=== PATIENT | female | born 1975 | race Two or more races ===

== ENCOUNTER 2023-01-25 09:18 | Outpatient (OUT) | payer MEDICARE, OTHER, SELFPAY ==
--- NOTE | 2023-01-25 09:50 | XR_ITS ---
The [address] [address] Patient Name: ABBIE SALCIDO MRN: [id number] date: 1975 Sex: F Assigned Patient Location: [facility] Current Patient Location: Accession/Order Number: [id number] Exam Date: 01/25/2023 09:50 Report Date: 01/25/2023 10:26 At the request of: SAMAN BOURNE Procedure: XR foot EBER min 3V EXAMINATION: XR foot EBER min 3V HISTORY: LEFT FOOT PAIN COMPARISON: No relevant comparison available. FINDINGS: RIGHT FINDINGS: BONES: Remote osteotomy transfixed with a single screw head of first metatarsal. Arthroplasty at the second metatarsal. No acute fracture, dislocation or mechanical failure. Degenerative changes most significant first metatarsal-phalangeal joint with joint space narrowing. Enthesopathic spurring of the calcaneus SOFT TISSUES: Negative. No visible soft tissue swelling. OTHER: Negative. LEFT FINDINGS: BONES: No acute fracture or dislocation. Joint replacement second metatarsal phalangeal joint with foreshortening of the digit. Mild degenerative changes with enthesopathic spurring of the calcaneus SOFT TISSUES: Negative. No visible soft tissue swelling. OTHER: Negative. IMPRESSION: RIGHT CONCLUSION: No acute abnormality LEFT CONCLUSION: No acute abnormality Electronically authenticated by: NURY VERNON Date: 01/25/2023 10:26
== END 2023-01-25 09:19 | disposition home or self-care (01) ==
LOC: RAD 09:18
PROVIDERS: PCP Internal Medicine; Visit Provider Podiatrist Foot & Ankle Surgery
DX: M79.671 Pain in right foot (principal); M79.672 Pain in left foot
CPT/HCPCS: 73630

== ENCOUNTER 2023-02-01 10:14 | Outpatient (OUT) | payer MEDICARE, OTHER, SELFPAY ==
--- NOTE | 2023-02-01 10:27 | CT_ITS ---
[address] [address] Patient Name: ABBIE SALCIDO MRN: [id number] date: 1975 Sex: F Assigned Patient Location: CT Current Patient Location: CT Accession/Order Number: [id number] Exam Date: 02/01/2023 10:45 Report Date: 02/01/2023 11:50 At the request of: CUAUHTEMOC RODRIGUEZ Procedure: CT chest wo con EXAM: CT chest wo con HISTORY: multiple lung nodules R91.8 COMPARISON: 06/23/2021; 12/22/2021 TECHNIQUE: Axial CT images were obtained of the chest without intravenous contrast. Multiplanar reconstructions were performed. CHEST FINDINGS: Lungs/Pleura: The lungs are clear. There is a stable punctate nodule in the right middle lobe measuring 2.8 mm. A second stable pulmonary nodules present in the left lower lobe measuring 4.8 mm on image 68 of series 4. A punctate nodule in the left lower lobe measures 2.6 mm on image 58 of series 4. A punctate nodule in the right lower lobe measures 3.6 mm on image 48 of series 4. No pleural effusion or pneumothorax. Cardiovascular: The heart is normal in size. Mild coronary artery calcifications are present. The aorta and pulmonary arteries are unremarkable. Pericardium: No effusion. Mediastinum: Postoperative changes are present of a Al fundoplication with a small hiatal hernia. Lymph Nodes: No lymph node enlargement identified on this nonenhanced CT. Bones: No acute osseous abnormality. Soft tissues: Unremarkable. Upper Abdomen: Prior cholecystectomy. IMPRESSION: 1. No acute abnormality of the chest. 2. Multiple subcentimeter pulmonary nodules are present which appear stable. 3. Postoperative changes of a Al fundoplication with a small hiatal hernia. 4. Mild coronary artery calcifications. Electronically authenticated by: KALYAN COTA Date: 02/01/2023 11:50
== END 2023-02-01 10:15 | disposition home or self-care (01) ==
LOC: CT 10:14
PROVIDERS: PCP Internal Medicine; Visit Provider Internal Medicine
DX: R91.8 Other nonspecific abnormal finding of lung field (principal); K44.9 Diaphragmatic hernia without obstruction or gangrene; Z98.890 Other specified postprocedural states; I25.10 Atherosclerotic heart disease of native coronary artery without angina pectoris; Z12.31 Encounter for screening mammogram for malignant neoplasm of breast; M19.072 Primary osteoarthritis, left ankle and foot; M87.00 Idiopathic aseptic necrosis of unspecified bone
CPT/HCPCS: 71250; 73700; 77063; 77067

== ENCOUNTER 2023-02-01 10:17 | Outpatient (OUT) | payer MEDICARE, OTHER, SELFPAY ==
--- NOTE | 2023-02-01 10:24 | CT_ITS ---
The [address] [address] Patient Name: ABBIE SALCIDO MRN: [id number] date: 1975 Sex: F Assigned Patient Location: CT Current Patient Location: CT Accession/Order Number: [id number] Exam Date: 02/01/2023 10:45 Report Date: 02/01/2023 12:03 At the request of: SAMAN BOURNE Procedure: CT foot LT wo con EXAMINATION: CT foot LT wo con HISTORY: osteoarthritis M19.079, Periprosthetic fx hip joint M97.00 ; pain to second digit for one month; no known injury COMPARISON: XR foot bilateral 01/25/2023 TECHNIQUE: Multi-planar CT images were created without IV contrast. Dose reduction techniques were achieved by using automated exposure control and/or adjustment of mA and/or kV according to patient size and/or use of iterative reconstruction technique. FINDINGS: BONES: Prosthetic replacement of the articular surfaces of the second tarsal metatarsal joint; no appreciable hardware failure, bone fracture, or abnormal alignment. The remaining bones and joints are unremarkable. SOFT TISSUES: Negative. No visible soft tissue swelling. EFFUSION: None visible. OTHER: Negative. IMPRESSION: 1. Prior surgical repair of the second tarsal-metatarsal joint without evidence of hardware failure or acute bone abnormality. 2. No suspicious findings to account for patient's symptoms. Electronically authenticated by: COLE CAMACHO Date: 02/01/2023 12:03
== END 2023-02-01 10:18 | disposition home or self-care (01) ==
LOC: CT 10:17
PROVIDERS: PCP Internal Medicine; Visit Provider Podiatrist Foot & Ankle Surgery
DX: M19.072 Primary osteoarthritis, left ankle and foot (principal); M87.00 Idiopathic aseptic necrosis of unspecified bone
CPT/HCPCS: 73700

== ENCOUNTER 2023-02-01 10:20 | Outpatient (OUT) | payer MEDICARE, OTHER, SELFPAY ==
--- NOTE | 2023-02-01 10:52 | MM_ITS ---
Patient: ABBIE SALCIDO Exam Date: 02/01/2023 : 1975 Gender:F Ordering : Shaikh Amy Kendall . Admission #: [id number] Family : Order #: [id number] CLICK HERE TO VIEW EXAM RADIOLOGY REPORT PROCEDURE: MM TOMOSYNTHESIS SCREENING BI COMPARISON: MM TOMOSYNTHESIS SCREENING BI, 06/23/2021. MM TOMOSYNTHESIS SCREENING BI, 03/24/2020. MG MAMM SCREEN EBER W CAD, 02/05/2019. MG MAMM SCREEN EBER W CAD, 09/01/2017. INDICATIONS: Screening mammogram Z12.31 Calculator Name NCI Breast Cancer Risk Assessment Tool 5 Year Breast Cancer Risk 1.10% Lifetime Breast Cancer Risk 11.00% Personal Breast Cancer No Personal Ovarian Cancer No Treatments None Family Cancers None LOCATION: [facility] BREAST COMPOSITION: Extremely dense, which lowers the sensitivity of mammography. FINDINGS: DIAGNOSTIC CATEGORY 1--NEGATIVE. RIGHT BREAST: No significant suspicious finding. Heterogeneous density of the fibroglandular tissue. No significant change has occurred. LEFT BREAST: No significant suspicious finding. Heterogeneous density of the fibroglandular tissue. No significant change has occurred. RECOMMENDATIONS: ROUTINE MAMMOGRAM AND CLINICAL EVALUATION IN 12 MONTHS. PLEASE NOTE: A NORMAL MAMMOGRAM DOES NOT EXCLUDE THE POSSIBILITY OF BREAST CANCER. A CLINICALLY SUSPICIOUS PALPABLE LUMP SHOULD BE BIOPSIED. Dictated by: Jaison Barber M.D. on 02/07/2023 at 14:00 Approved by: Jaison Barber M.D. on 02/07/2023 at 14:07
== END 2023-02-01 10:21 | disposition home or self-care (01) ==
LOC: MAMMO 10:20
PROVIDERS: PCP Internal Medicine; Visit Provider Internal Medicine
DX: Z12.31 Encounter for screening mammogram for malignant neoplasm of breast (principal)
CPT/HCPCS: 77063; 77067

== ENCOUNTER 2023-04-21 08:04 | Outpatient (OUT) | payer MEDICARE, OTHER, SELFPAY ==
--- NOTE | 2023-04-21 08:14 | CT_ITS ---
[address] [address] Patient Name: ABBIE SALCIDO MRN: [id number] date: 1975 Sex: F Assigned Patient Location: CT Current Patient Location: CT Accession/Order Number: [id number] Exam Date: 04/21/2023 09:27 Report Date: 04/21/2023 10:50 At the request of: NON-STAFF PHYSICIAN Procedure: CT abdomen pelvis wo con EXAMINATION: CT abdomen pelvis wo con HISTORY: Abdominal Pain COMPARISON: No relevant comparison available. TECHNIQUE: Axial, Coronal, and Sagittal images were created without IV contrast. Dose reduction techniques were achieved by using automated exposure control and/or adjustment of mA and/or kV according to patient size and/or use of iterative reconstruction technique. FINDINGS: LUNG BASES: No visible pulmonary or pleural disease. LIVER: No enlargement, atrophy, abnormal density, or significant focal lesion. BILIARY: Surgical clips from cholecystectomy PANCREAS: No lesion, fluid collection, ductal dilatation, or atrophy. SPLEEN: No enlargement or focal lesion. ADRENALS: No mass or enlargement. KIDNEYS: No mass, obstruction, or calcification. BOWEL/MESENTERY: Left lower quadrant colostomy. Moderate amount of stool in the proximal colon. Diverticulosis in the distal blind and: Portion. Normal appendix. Moderate sliding hiatal hernia AORTA/VASCULAR: No aneurysm or dissection. RETROPERITONEUM: No mass or adenopathy. LYMPH NODES: No adenopathy. URINARY BLADDER: No visible focal wall thickening, lesion, or calculus. PELVIC ORGANS: Hysterectomy ABDOMINAL WALL: No mass or hernia. BONES: Mild to moderate degenerative changes OTHER: Negative. CT/CT abdomen pelvis wo con IMPRESSION: Moderate-sized sliding hiatal hernia Left lower quadrant colostomy with moderate stool in the proximal colon but overall nonobstructive bowel gas pattern Electronically authenticated by: NURY VERNON Date: 04/21/2023 10:50
== END 2023-04-21 08:05 | disposition home or self-care (01) ==
PROVIDERS: PCP Internal Medicine
DX: K46.9 Unspecified abdominal hernia without obstruction or gangrene (principal); K44.9 Diaphragmatic hernia without obstruction or gangrene; Z93.3 Colostomy status
CPT/HCPCS: 74176

== ENCOUNTER 2023-05-29 11:24 | Outpatient (OUT) | payer MEDICARE, OTHER, SELFPAY ==
[2023-05-29 11:44] LABS: Basophils Absolute Auto 0.1 10^3/uL (0.0-0.1); Basophils Percent Auto 0.6 % (0.2-2.0); Eosinophils Absolute Auto 0.1 10^3/uL (0.0-0.7); Eosinophils Percent Auto 1.2 % (0.9-7.0); Hematocrit 38.2 % (36.0-48.0); Hemoglobin 12.3 g/dL (12.0-16.0); Immature Granulocytes Abs Auto 0.04 10^3/uL (0.00-0.03); Immature Granulocytes Pct Auto 0.5 % (0.0-0.5); Lymphocytes Absolute Auto 2.8 10^3/uL (1.2-3.8); Lymphocytes Percent Auto 32.3 % (20.5-60.0); Mean Corpuscular HGB Conc 32.2 g/dL (29.9-35.2); Mean Corpuscular Hemoglobin 28.6 pg (26.7-34.0); Mean Corpuscular Volume 88.8 fL (81.0-99.0); Mean Platelet Volume 10.4 fL (9.5-13.5); Monocytes Absolute Auto 0.6 10^3/uL (0.3-0.8); Monocytes Percent Auto 6.7 % (1.7-12.0); Neutrophils Absolute Auto 5.1 10^3/uL (1.4-6.5); Neutrophils Percent Auto 58.7 % (43.0-75.0); Platelet Count 422 10^3/uL (150-450); Red Cell Distribution Width 14.2 % (11.0-15.0); White Blood Count 8.6 10^3/uL (4.0-11.0)
[2023-05-29 12:41] LABS: Estimated Average Glucose 108 mg/dL; Glycohemoglobin A1C 5.4 % (4.5-6.2)
[2023-05-29 12:58] LABS: Alanine Aminotransferase 25 U/L (14-59); Albumin Globulin Ratio 0.9; Albumin Level 3.4 g/dL (3.4-5.0); Alkaline Phosphatase 114 U/L (46-116); Anion Gap 10.6; Aspartate Amino Transferase 9 U/L (15-37); BUN Creatinine Ratio 16.7; Bilirubin Total 0.4 mg/dL (0.2-1.0); Calcium 8.6 mg/dL (8.5-10.1); Carbon Dioxide 28.6 mmol/L (21.0-32.0); Chloride 102 mmol/L (98-107); Chol HDL Ratio 2.3; Cholesterol 156 mg/dL (<=200); Estimated GFR (African America >60 (>=60); Estimated GFR (Non-African Ame >60 (>=60); Free T3 2.41 pg/mL (2.18-3.98); Globulin 3.6 g/dL; Glucose 104 mg/dL (74-106); HDL Cholesterol 69 mg/dL (40-60); Potassium 4.2 mmol/L (3.5-5.1); Sodium 137 mmol/L (136-145); Thyroid Stimulating Hormone 0.872 uIU/mL (0.358-3.740); Triglycerides 75 mg/dL (<=150)
[2023-05-30 12:55] LABS: Free T4 1.02 ng/dL (0.76-1.46)
== END 2023-05-29 11:25 | disposition home or self-care (01) ==
LOC: LAB 11:24
PROVIDERS: PCP Internal Medicine; Visit Provider Internal Medicine
DX: R53.83 Other fatigue (principal); E55.9 Vitamin D deficiency, unspecified; I25.10 Atherosclerotic heart disease of native coronary artery without angina pectoris; E78.5 Hyperlipidemia, unspecified; R73.09 Other abnormal glucose; E03.9 Hypothyroidism, unspecified
CPT/HCPCS: 36415; 80053; 80061; 82306; 82607; 83036; 84436; 84439; 84443; 84481; 85025

== ENCOUNTER 2023-07-06 15:27 | Emergency (ER) | payer MEDICARE, OTHER, SELFPAY ==
[2023-07-06] VITALS (32 sets, daily range): BP systolic 92–140; BP diastolic 64–99; PULSE 75–100; RESP 14–32; TEMP 36.6; O2SAT 81–99; BMI 29.9
--- NOTE | 2023-07-06 15:49 | ED_ITS ---
HPI - Chest Pain General Chief Complaint: Chest Pain Stated Complaint: Chest Pain Time Seen by Provider: 07/06/23 15:49 Source: patient Mode of arrival: walk-in Limitations: no limitations History of Present Illness HPI narrative: patient's here complaining of feeling weak fatigue and tired. She had an myocardial infarction approximately year ago she wanted to make sure that nothing more serious is going on today. She said she did take some additional doses of aspirin today. She is no longer on any antiplatelet therapy. She said they placed one stent in her left anterior descending in [place] last year. She is also on cholesterol lowering medication. 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 She has not had a recent stress test or echocardiogram. She says she's had a history of some PVCs in the past. She said they've never told her that she had any type of heart murmur. She says she just started feeling extremely weak and fatigued and tired approximately one week ago. She's not seen any other medical provider since all this started a week ago. Related Data Allergies Allergy/AdvReac Type Severity Reaction Status Date / Time adhesive tape AdvReac Unknown Verified 07/06/23 15:38 PFSH PFSH Social History Smoking status: Former smoker Exam Narrative Exam Narrative: awake alert pleasant here with a male stock clerk very good historian skin is slightly clammy. There is no evidence of anemia. On chest examination heart sounds are regular with no ectopy. She does have a grade 2 to 3/6 systolic murm ur. Lungs were clear with no wheezes rales or rhonchi there is no pleural or pericardial rub. Epigastric area is nontender. Lower extremities show no evidence of leg swelling phlebitis erythema or te nderness in the calf or thigh areas all negative for pain or discomfort. Cognition and mentation are normal. Constitutional Vital Signs, click to edit/add: Last Vital Signs Temp 98 F 07/06/23 15:33 Pulse 82 07/06/23 18:00 Resp 18 07/06/23 18:00 BP 109/79 07/06/23 17:45 Pulse Ox 96 07/06/23 18:00 O2 Del Method Room Air 07/06/23 15:33 Course Vital Signs Vital signs: Vital Signs Temperature 98 F 07/06/23 15:33 Pulse Rate 80 07/06/23 15:33 Respiratory Rate 16 07/06/23 15:33 Blood Pressure 115/86 07/06/23 15:33 Pulse Oximetry 97 07/06/23 15:33 Oxygen Delivery Method Room Air 07/06/23 15:33 Temperature 98 F 07/06/23 15:33 Pulse Rate 82 07/06/23 18:00 Respiratory Rate 18 07/06/23 18:00 Blood Pressure 109/79 07/06/23 17:45 Pulse Oximetry 96 07/06/23 18:00 Oxygen Delivery Method Room Air 07/06/23 15:33 MDM - Chest Pain MDM Narrative Medical decision making narrative: this patient's troponin was reported to us as being elevated at 4:45 PM. We already have a call into the [facility] cardiology group for consideration of transfer for a different patient. At this time we will start this patient on heparin. She took aspirin this morning. She's having some discomfort but not much at this time. We anticipate transfer to the cardiology service area her vital signs are stable. There is no ST segment elevation or EKG. Hospitalist in [place] returned our call at 5:55 PM. The case was discussed including the lab in critical condition. He's agreed to accept the patient in transfer arrangements will be made. Lab Data Labs: Lab Results 07/06/23 Range/Units 15:40 WBC 11.2 H (4.0-11.0) 10^3/uL RBC 4.48 (4.20-5.40) 10^6/uL Hgb 12.6 (12.0-16.0) g/dL Hct 39.2 (36.0-48.0) % MCV 87.5 (81.0-99.0) fL MCH 28.1 (26.7-34.0) pg MCHC 32.1 (29.9-35.2) g/dL RDW 14.4 (11.0-15.0) % Plt Count 430 (150-450) 10^3/uL MPV 10.7 (9.5-13.5) fL Neut % (Auto) 67.9 (43.0-75.0) % Lymph % (Auto) 22.1 (20.5-60.0) % [place] % (Auto) 7.9 (1.7-12.0) % Eos % (Auto) 1.3 (0.9-7.0) % Baso % (Auto) 0.4 (0.2-2.0) % Neut # (Auto) 7.6 H (1.4-6.5) 10^3/uL Lymph # (Auto) 2.5 (1.2-3.8) 10^3/uL [place] # (Auto) 0.9 H (0.3-0.8) 10^3/uL Eos # (Auto) 0.1 (0.0-0.7) 10^3/uL Baso # (Auto) 0.0 (0.0-0.1) 10^3/uL Abs Immat Gran (auto) 0.05 H (0.00-0.03) 10^3/uL Imm/Tot Granulo (auto) 0.4 (0.0-0.5) % D-Dimer 0.67 H* (<=0.59) mg/L FEU Sodium 137 (136-145) mmol/L Potassium 4.1 (3.5-5.1) mmol/L Chloride 103 (98-107) mmol/L Carbon Dioxide 25.6 (21.0-32.0) mmol/L Anion Gap 12.5 BUN 13.0 (7.0-18.0) mg/dL Creatinine 0.69 (0.55-1.02) mg/dL Est GFR ( Amer) >60 (>=60) Est GFR (Non-Af Amer) >60 (>=60) BUN/Creatinine Ratio 18.8 Glucose 99 (74-106) mg/dL Calcium 9.3 (8.5-10.1) mg/dL Total Bilirubin 0.2 (0.2-1.0) mg/dL AST 15 (15-37) U/L ALT 24 (14-59) U/L Alkaline Phosphatase 98 (46-116) U/L Troponin I High Sens 278.6 H* (4.0-51.3) pg/mL NT-Pro-B Natriuret Pep 44.0 (<=900.0) pg/mL Total Protein 7.3 (6.4-8.2) g/dL Albumin 3.5 (3.4-5.0) g/dL Globulin 3.8 g/dL Albumin/Globulin Ratio 0.9 Discharge Plan Discharge Chief Complaint: Chest Pain Clinical Impression: Non-ST elevated myocardial infarction (non-STEMI) Patient Disposition: [facility] Time of Disposition Decision: 18:04 Mode of Transportation: EMS Referrals: Shaikh Kendall MD [Primary Care Provider] - 1 week
--- NOTE | 2023-07-06 15:50 | ECG_ITS ---
The [facility] Test Date: 2023-07-06 Pat Name: ABBIE SALCIDO Department: Room: - Gender: Female [employer] Operator: : 1975 Requested By: SHAIKH DOE Order Number: [id number] Reading MD: ANDRES SHOOK Measurements Intervals [place] Rate: 82 P: 32 CO: 146 QRS: 84 QRSD: 94 T: 64 QT: 370 QTc: 409 Interpretive Statements 1100 Sinus rhythm 9110 normal ECG No previous ECG available for comparison Electronically Signed On 07-07-2023 7:21:17 EST by ANDRES SHOOK
--- NOTE | 2023-07-06 15:50 | XR_ITS ---
The [address] [address] Patient Name: ABBIE SALCIDO MRN: [id number] date: 1975 Sex: F Assigned Patient Location: ER Current Patient Location: ER Accession/Order Number: [id number] Exam Date: 07/06/2023 15:33 Report Date: 07/06/2023 16:39 At the request of: NIK BAXTER Procedure: XR chest 1V EXAM: XR chest 1V HISTORY: Fatigue. COMPARISON: Chest radiograph dated 12/22/2021. TECHNIQUE: AP upright portable chest radiograph performed. FINDINGS: The trachea is midline. There is magnification of the cardiac silhouette. The cardiomediastinal silhouette and hilar shadows are unremarkable. The lung volumes are normal. The lung nicole are clear. There is no pneumothorax. The osseous structures are unremarkable. XR/XR chest 1V IMPRESSION: Unremarkable AP erect portable chest radiograph. Electronically authenticated by: SAMAN LAMA Date: 07/06/2023 16:39
[2023-07-06 16:09] LABS: Basophils Percent Auto 0.4 % (0.2-2.0); Eosinophils Absolute Auto 0.1 10^3/uL (0.0-0.7); Eosinophils Percent Auto 1.3 % (0.9-7.0); Hematocrit 39.2 % (36.0-48.0); Hemoglobin 12.6 g/dL (12.0-16.0); Immature Granulocytes Abs Auto 0.05 10^3/uL (0.00-0.03); Immature Granulocytes Pct Auto 0.4 % (0.0-0.5); Lymphocytes Absolute Auto 2.5 10^3/uL (1.2-3.8); Lymphocytes Percent Auto 22.1 % (20.5-60.0); Mean Corpuscular HGB Conc 32.1 g/dL (29.9-35.2); Mean Corpuscular Hemoglobin 28.1 pg (26.7-34.0); Mean Corpuscular Volume 87.5 fL (81.0-99.0); Mean Platelet Volume 10.7 fL (9.5-13.5); Monocytes Absolute Auto 0.9 10^3/uL (0.3-0.8); Monocytes Percent Auto 7.9 % (1.7-12.0); Neutrophils Absolute Auto 7.6 10^3/uL (1.4-6.5); Neutrophils Percent Auto 67.9 % (43.0-75.0); Platelet Count 430 10^3/uL (150-450); Red Blood Count 4.48 10^6/uL (4.20-5.40); Red Cell Distribution Width 14.4 % (11.0-15.0); White Blood Count 11.2 10^3/uL (4.0-11.0)
[2023-07-06 16:36] LABS: Alanine Aminotransferase 24 U/L (14-59); Albumin Globulin Ratio 0.9; Albumin Level 3.5 g/dL (3.4-5.0); Alkaline Phosphatase 98 U/L (46-116); Anion Gap 12.5; Aspartate Amino Transferase 15 U/L (15-37); BUN Creatinine Ratio 18.8; Bilirubin Total 0.2 mg/dL (0.2-1.0); Calcium 9.3 mg/dL (8.5-10.1); Carbon Dioxide 25.6 mmol/L (21.0-32.0); Chloride 103 mmol/L (98-107); Estimated GFR (African America >60 (>=60); Estimated GFR (Non-African Ame >60 (>=60); Globulin 3.8 g/dL; Glucose 99 mg/dL (74-106); Potassium 4.1 mmol/L (3.5-5.1); Sodium 137 mmol/L (136-145); Total Protein 7.3 g/dL (6.4-8.2)
[2023-07-06 16:45] LABS: Troponin I High Sensitivity 278.6 pg/mL (4.0-51.3)
[2023-07-06 16:51] LABS: D Dimer 0.67 mg/L FEU (<=0.59)
[2023-07-06] MEDS: HEPARIN SODIUM (PORCINE) 5,000 UNIT/ML VIAL 4000 UNIT IV (17:03)
[2023-07-06] MEDS: HEPARIN SODIUM,PORCINE/D5W 25,000 UNIT/500 ML IV.SOLN 17 UNIT IV (17:04)
== END 2023-07-06 19:35 | disposition short-term general hospital (02) ==
PROVIDERS: Emergency Provider Emergency Medicine Emergency Medical Services; PCP Internal Medicine
DX: I21.4 Non-ST elevation (NSTEMI) myocardial infarction (principal); I25.2 Old myocardial infarction; R01.1 Cardiac murmur, unspecified; Z95.5 Presence of coronary angioplasty implant and graft; Z79.899 Other long term (current) drug therapy; Z87.891 Personal history of nicotine dependence
CPT/HCPCS: 36415; 71045; 80053; 83880; 84484; 85025; 85378; 93005; 96374; 99285

== ENCOUNTER 2023-11-13 09:38 | Outpatient (OUT) | payer MEDICARE, OTHER, SELFPAY ==
--- NOTE | 2023-11-13 10:08 | XR_ITS ---
[address] [address] Patient Name: ABBIE SALCIDO MRN: [id number] date: 1975 Sex: F Assigned Patient Location: LAB Current Patient Location: LAB Accession/Order Number: [id number] Exam Date: 11/13/2023 10:15 Report Date: 11/13/2023 10:32 At the request of: SHAIKH DOE Procedure: XR hip EBER EXAMINATION: XR hip EBER HISTORY: bilateral hip pain M25.551, M25.552 COMPARISON: No relevant comparison available. FINDINGS: RIGHT FINDINGS: BONES: No acute fracture or dislocation. Mild degenerative changes with marginal osteophyte relation of the acetabulum SOFT TISSUES: Negative. No visible soft tissue swelling. OTHER: Negative. LEFT FINDINGS: BONES: No acute fracture or dislocation. Mild degenerative changes with marginal osteophyte relation of the acetabulum SOFT TISSUES: Negative. No visible soft tissue swelling. OTHER: Negative. XR/XR hip EBER IMPRESSION: RIGHT CONCLUSION: Mild osteoarthritis LEFT CONCLUSION: Mild osteoarthritis Electronically authenticated by: NURY VERNON Date: 11/13/2023 10:32
[2023-11-13 10:21] LABS: Basophils Absolute Auto 0.1 10^3/uL (0.0-0.1); Basophils Percent Auto 0.7 % (0.2-2.0); Eosinophils Absolute Auto 0.1 10^3/uL (0.0-0.7); Eosinophils Percent Auto 1.6 % (0.9-7.0); Hematocrit 38.5 % (36.0-48.0); Hemoglobin 11.9 g/dL (12.0-16.0); Immature Granulocytes Abs Auto 0.04 10^3/uL (0.00-0.03); Immature Granulocytes Pct Auto 0.4 % (0.0-0.5); Lymphocytes Absolute Auto 3.2 10^3/uL (1.2-3.8); Lymphocytes Percent Auto 35.9 % (20.5-60.0); Mean Corpuscular HGB Conc 30.9 g/dL (29.9-35.2); Mean Corpuscular Hemoglobin 26.8 pg (26.7-34.0); Mean Corpuscular Volume 86.7 fL (81.0-99.0); Mean Platelet Volume 10.5 fL (9.5-13.5); Monocytes Absolute Auto 0.6 10^3/uL (0.3-0.8); Monocytes Percent Auto 7.2 % (1.7-12.0); Neutrophils Absolute Auto 4.8 10^3/uL (1.4-6.5); Neutrophils Percent Auto 54.2 % (43.0-75.0); Platelet Count 437 10^3/uL (150-450); Red Blood Count 4.44 10^6/uL (4.20-5.40); Red Cell Distribution Width 14.6 % (11.0-15.0); White Blood Count 8.9 10^3/uL (4.0-11.0)
[2023-11-13 11:05] LABS: Alanine Aminotransferase 35 U/L (14-59); Albumin Globulin Ratio 0.9; Albumin Level 3.4 g/dL (3.4-5.0); Alkaline Phosphatase 116 U/L (46-116); Anion Gap 13.1; Aspartate Amino Transferase 19 U/L (15-37); BUN Creatinine Ratio 18.8; Bilirubin Total 0.5 mg/dL (0.2-1.0); Calcium 9.3 mg/dL (8.5-10.1); Carbon Dioxide 26.8 mmol/L (21.0-32.0); Chloride 101 mmol/L (98-107); Chol HDL Ratio 2.7; Cholesterol 160 mg/dL (<=200); Estimated GFR (African America >60 (>=60); Estimated GFR (Non-African Ame >60 (>=60); Globulin 3.7 g/dL; Glucose 108 mg/dL (74-106); HDL Cholesterol 60 mg/dL (40-60); LDL Cholesterol Calculated 73.8 mg/dL; Potassium 3.9 mmol/L (3.5-5.1); Sodium 137 mmol/L (136-145); TSH W/ REFLEX FT4 2.778 uIU/mL (0.358-3.740); Total Protein 7.1 g/dL (6.4-8.2); Triglycerides 131 mg/dL (<=150); VLDL CHOLESTEROL 26.2 mg/dL
== END 2023-11-13 09:39 | disposition home or self-care (01) ==
LOC: LAB 09:42
PROVIDERS: PCP Internal Medicine; Visit Provider Internal Medicine
DX: E03.8 Other specified hypothyroidism (principal); E06.3 Autoimmune thyroiditis; E78.5 Hyperlipidemia, unspecified; M25.551 Pain in right hip; M25.552 Pain in left hip; I11.0 Hypertensive heart disease with heart failure
CPT/HCPCS: 36415; 73522; 80053; 80061; 84443; 85025

== ENCOUNTER 2024-03-29 06:47 | Outpatient (OUT) | payer MEDICARE, OTHER, SELFPAY ==
--- OUTSIDE RECORDS SUMMARY | 2024-03-29 06:50 | XMS_ITS | CCD ---
Author Organization [facility] Inform ion Partnership [facility] Care Team Providers Care Explosive Operator Name Role Phone Unavailable Primary Care Provider Unavailabl e FAWWAD, GUTIERRES H Primary Care Unavailable FAWWAD, GUTIERRES H Attending Unavailable WARDVILLE, DR NURY Carpenter Consulting Unavailable FAWWAD, GUTIERRES H Admitting Unavailable FAWWAD, GUTIERRES H Consulting Unavailable FAWWAD, GUTIERRES H Primary Care Unavailable FAWWAD, GUTIERRES H Consulting Unavailable FAWWAD, GUTIERRES H Attending Unavailable FAWWAD, GUTIERRES H Admitting Unavailable FAWWAD, GUTIERRES H Primary Care Unavailable MISC, DR ASCENCIO Consulting Unavailable DONATO, DR ROEL [place] Admitting Unavaila ble DEBENEDETTI, DR ROEL [place] Attending Unavaila ble Unknown, Referring Provider Unavailable Unav ailable MD ANDREAS ANDRADE Attending Unavailable Self, Referral Referring Unavailable UNKNOWN, PCP Primary Care Unavailable Unavailable Primary Care Provider UnavailMD Breezy Lawson Primary Care Provider MD Jayden Joe Admit Provider REFUGIO Green Other Provider Unavailable DO Hayley Cordova Other Provider [phone] MD Sherman Santiago Other Provider [phone] MD Rishabh Boykin Other Provider MD Suzan Clifton Other Provider MD Alo Perez Other Provider BRITTANI Doshi Other Provider MD Teri Wynn Other Provider MD Sunshine Forrester Other Provider MD Katelyn Carrillo Other Provider Aurelia [facility] Anh [place] Other Provider MD Jennifer Rodriguez Other Provider DO Christophe Stockton Attending Provider LUCILLE SOLORZANO Attending Unavailable CRYSTALD, GUTIERRES Referring Unavailable FAWSABAD, [facility] Primary Care Unavailable Enoch COTTO [facility] Primary Care Provider Unavailable Primary Care Provider Unavailhai Kendall MD [facility] Primary Care Provider MD Enoch [facility] Primary Care Provider MD Breezy Kendall Attending Provider Fawadryan, Gutierres Primary Care Unavailable Enoch, Gutierres Attending Unavailable Fadanield, Gutierres Admitting Unavailable [place]awsabad, Gutierres Primary Care Unavailable Enoch, Gutierres Attending Unavailable Enoch, Gutierres Admitting Unavailable [place], [facility] Primary Care Unavailable Christophe Stockton Attending Unavailable Jaylin Green Consulting Unavailable Jayden Joe Admitting Unavailab Hayley Lopez Consulting Unavailable Santiago, Whitaker Consulting Unavailable Rishabh Boykin Consulting Unavail able Suzan Clifton Consulting Unavailable Alo Perez Consulting Unavailab Shanae Vaca Consulting Unavailable Teri Wynn Consulting Unavailable Sunshine Forrester Consulting Unavailab Katelyn Alexandra Consulting Unavailable Anh Moses Consulting Unavailable Jennifer Rodriguez Consulting Unavailable FADANIELD, GUTIERRES Attending Unavailable FAWSABAD, GUTIERRES Attending Unavailable FAWWAD, GUTIERRES Attending Unavailable FADANIELD, GUTIERRES Attending Unavailable SYMONE HUDSON Referring Unava ilable FAWSABAD, GUTIERRES Primary Care Unavailable ANDREAS ANDRADE Referring Unavailable FAWWAD, GUTIERRES Primary Care Unavailable AUBREY-GOLBIG, SYMONE Goldstein Referring Unava ilable FAWWAD, [facility] Primary Care Unavailable [facility] Referring Unava ilable FAWWAD, [facility] Primary Care Unavailable CJ, SYMONE Goldstein Attending Unava ilable ANDREAS ANDRADE Attending Unavailable FAWWAD, [facility] Primary Care Unavailable ANDREAS ANDRADE Attending Unavailable FAWWAD, [facility] Primary Care Unavailable FAWWAD, [facility] Primary Care Unavailable ANDREAS ANDRADE Attending Unavailable ANDREAS ANDRADE Referring Unavailable FAWWAD, [facility] Primary Care Unavailable ANDREAS ANDRADE Referring Unavailable FAWWAD, [facility] Primary Care Unavailable ANDREAS ANDRADE Attending Unavailable AL KHADEM, CARLYN Referring Unavailable FAWWAD, [facility] Primary Care Unavailable KHAITAN, JUJU Attending Unavailable KHAITAN, JUJU Attending Unavailable ANDREAS ANDRADE Referring Unavailable AL KHADEM, CARLYN Referring Unavailable FAULXYESY Attending Unavailable KHAITAN, JUJU Referring Unavailable FAULXYESY Attending Unavailable Allergies Allergy Classification Reported Allergen(s) Allergy Type Date of Onset Reaction(s) Facility (3 sources) Adhesive agent; Translations: [ADHESIVE] Drug allergy (disorder) 9 infection [facility] Repository (1 source) Gadolinium Drug Allergy [facility] Repository (2 sources) Morphine; Translations: [MORPHINE] Drug Allergy 5 [facility] Repository (3 sources) Adhesive Tape TAPE; Translations: [Adhesive Tape TAPE] Allergy to drug (finding) [id number][id number] well 2100 Work Phone: (3 sources) Adhesive Tape; Translations: [adhesive tape] Propensity to adverse reactions 3 [facility] (3 sources) Codeine; Translations: [CODEINE] Drug Allergy 5 [facility] Repository (1 source) GADOLINIUM-CONT AINING CONTRAST MEDIA; Translations: [GADOLINIUM-CON TAINING CONTRAST MEDIA] Propensity to adverse reactions to drug (disorder) 5 [facility] Repository (2 sources) Iodine Drug Allergy 7 [facility] (2 sources) [facility] ([facility]) Gadolinium Derivatives Drug Intolerance [address] [facility] (2 sources) Wound Dressing Adhesive Drug Allergy 9 Unknown, Rash [facility] (1 source) Adhesive agent Drug allergy (disorder) 2 [facility] Repository (3 sources) ADHESIVE TAPE-SILICONES; Translations: [ADHESIVE TAPE-SILICONES] Propensity to adverse reactions to drug (disorder) 3 [facility] 2 Repository Medications Current Medications Medication Drug Class(es) Dates Sig (Normalized) Sig (Original) Acetaminophen (14 sources) acetaminophen (T YLENOL ORAL) Take by mouth. Active take 1 tablet by lew th every six hours as needed for pain acetaminophen (Tylenol) 500 MG tablet Ta ke 1 tablet by mouth every 6 (six) hours if needed for mild pain 0 Active acetaminophen (T YLENOL ORAL) Take by mouth. 0 Active Tylenol TABS Umair ntity: 0 Refills: 0 Ordered: 02-Mar-2023 DO Active [id number] 200 actuat albuterol 0.09 mg/actuat metered dose inhaler (14 sources) beta2-Adrenergic Agonist Start: 08-27-2022 albut saul 90 mcg/actuation inhaler 08/27/2022 Active Albuterol 90 MCG /ACT AERS Quantity: 0 Refills: 0 Ordered: 02-Mar-2023 DO Active ALPRAZolam 1 mg oral tablet (20 sources) Benzodiazepine Start: 04-16-2023 End: 04-24-2024 take 1 tablet by mouth twice daily as needed for anxiety ALPRAZolam (XANAX) 1 mg tablet Indications: VIVIAN (generalized anxiety disorder) Take 1 tablet by mouth two times a day as needed for anxiety for up to 90 days. 60 tablet 2 01/25/2024 04/24/2024 Active Start: 10-03-2022 End: 03-15-2023 take 1 tablet by mouth twice daily as needed for anxiety ALPRAZolam (XANAX) 1 mg tablet Indications: VIVIAN (generalized anxiety disorder) Take 1 tablet by mouth twice daily as needed for anxiety for up to 90 days. 60 tablet 2 12/15/2022 03/15/2023 Active Start: 07-08-2022 End: 09-06-2022 take 1 tablet by mouth twice daily as needed for anxiety ALPRAZolam (XANAX) 1 mg tablet Indications: VIVIAN (generalized anxiety disorder) Take 1 tablet by mouth twice daily as needed for anxiety for up to 60 days. 60 tablet 1 07/08/2022 09/06/2022 Active take 1 tablet by lew th every six hours as needed for anxiety ALPRAZolam (Xanax) 1 MG tablet Take 1 tablet by mouth every 6 (six) hours if needed for anxiety 0 Active Xanax 1 MG Oral Tablet Quantity: 0 Refills: 0 Ordered: 02-Mar-2023 DO Active Comment on above: Take 1 tablet by lew th twice daily as needed for anxiety for up to 60 days. Take 1 tablet by lew th twice daily as needed for anxiety for up to 90 days. Take 1 tablet by lew th two times a day as needed for anxiety for up to 90 days. Take 1 mg by mouth t wo times a day as needed. amitriptyline hydrochloride 25 mg oral tablet (11 sources) Tricyclic Antidepressant Start: 07-06-20 take 12.5 mg by mouth at bedtime Amitriptyline Active 12.5 MG PO Bedtime July 06, 2023 1:00am Start: 05-22-2023 amitriptyline (Elavil) 25 mg tablet 05/22/2023 Active ascorbic acid 1000 mg oral tablet (16 sources) Vitamin C Start: 07-06-2023 take 1 tablet by mouth once daily Ascorbic Acid (Vitamin C) (Vitamin C) 1,000 mg Tablet Active 1000 MG PO Daily July 06, 2023 1:00am Vitamin C 1000 M G Oral Tablet Quantity: 0 Refills: 0 Ordered: 02-Mar-2023 DO Active aspirin 81 mg delayed release oral tablet (16 sources) Platelet Aggregation Inhibitor, Nonsteroidal Anti-inflammatory Drug Start: 07-06-2023 take 81 mg by mouth once daily Aspirin Active 81 MG PO Daily July 06, 2023 1:00am aspirin 81 mg EC tablet Chew. Active Aspirin 81 MG Or al Tablet Chewable Quantity: 0 Refills: 0 Ordered: 02-Mar-2023 DO Active atorvastatin 80 mg oral tablet (17 sources) HMG-CoA Reductase Inhibitor Start: 09-06-2023 atorvastatin (Lipito r) 80 MG tablet Indications: Hyperlipidemia, unspecified hyperlipidemia type (CMS/HCC) TAKE 1 TABLET DAILY 90 tablet 3 09/06/2023 Active Start: 03-09-2023 End: 09-06-2023 take 80 mg by mouth once daily Atorvastatin Active 80 MG PO Daily July 06, 2023 1:00am Lipitor 80 MG Or al Tablet Quantity: 0 Refills: 0 Ordered: 02-Mar-2023 DO Active bisacodyl 5 mg delayed release oral tablet (2 sources) Stimulant Laxative Start: 08-31-2023 End: 09-30-2023 take 1 tablet by mouth once daily as needed for constipation bisacodyl (Dulcolax) 5 MG EC tablet Indications: Constipation due to slow transit Take 1 tablet (5 mg) by mouth Daily as needed for constipation Do not crush, chew, or split. 30 tablet 0 08/31/2023 09/30/2023 Active brimonidine tartrate 1.5 mg/ml ophthalmic solution (12 sources) alpha-Adrenergi c Agonist Start: 08-31-2023 End: 11-29-2023 take 1 drop(s) into the eye(s) once brimonidine (Alphagan P) 0.15 % ophthalmic solution Indications: Primary open angle glaucoma (POAG) of both eyes, mild stage (CMS/HCC) Administer 1 drop into both eyes every 12 (twelve) hours 15 mL 1 08/31/2023 11/29/2023 Active Start: 07-06-2023 take 1 drop(s) into the eye(s) twice daily Brimonidine Active 1 DROPS EYE-BOTH Twice daily July 06, 2023 1:00am take 1 drop(s) into the eye(s) twice daily brimonidine (AlphaGAN) 0.2 % ophthalmic solution Administer 1 drop into both eyes 2 times a day. Active End: 08-31-2023 take 2 drop(s) into the eye(s) in the morning brimonidine (AlphaGAN P) 0.2 % ophthalmic solution Administer 2 drops into both eyes in the morning and 2 drops before bedtime. 0 08/31/2023 Discontinued cariprazine 3 mg oral capsule (11 sources) Atypical Antipsychotic Start: 12-15-2022 End: 03-15-2023 Vraylar 3 mg capsule 12/15/2022 Active Comment on above: [facility] clopidogrel 75 mg oral tablet (2 sources) P2Y12 Platelet Inhibitor Start: 07-08-2023 take 75 mg by mouth once daily Clopidogrel Active 75 MG PO Daily July 08, 2023 1:00am dextroamphetamine sulfate 10 mg oral tablet (20 sources) Central Nervous System Stimulant Start: 03-18-2024 End: 04-17-2024 take 1 tablet by mouth three times daily Dextroamphetamine Sulfate 10 mg tablet Indications: Severe episode of recurrent major depressive disorder, without psychotic features (HCC) , Chronic fatigue syndrome Take 1 tablet by mouth three times a day for 30 days. 90 tablet 03/18/2024 04/17/2024 Active Start: 07-06-2023 take 20 mg by mouth once daily in the morning Dextroamphetamine Sulfate Active 20 MG PO Every morning July 06, 2023 1:00am Start: 07-06-2023 take 10 mg by mouth once daily in the evening Dextroamphetamine Sulfate Active 10 MG PO Every evening July 06, 2023 1:00am Start: 04-17-2023 End: 02-24-2024 take 1 tablet by mouth three times daily Dextroamphetamine Sulfate 10 mg tablet Indications: Severe episode of recurrent major depressive disorder, without psychotic features (HCC) , Chronic fatigue syndrome Take 1 tablet by mouth three times a day for 30 days. 90 tablet 0 01/25/2024 02/24/2024 Active Start: 10-20-2022 End: 03-17-2023 take 1 tablet by mouth three times daily Dextroamphetamine Sulfate 10 mg tablet Indications: Severe episode of recurrent major depressive disorder, without psychotic features (HCC) , Chronic fatigue syndrome Take 1 tablet by mouth three times daily for 30 days. This to replace all previous stimulants as of today. 90 tablet 0 02/15/2023 03/17/2023 Active Dextroamphetamin e Sulfate 10 MG Oral Tablet Quantity: 0 Refills: 0 Ordered: 02-Mar-2023 DO Active Comment on above: Take 1 tablet by lew th three times daily for 30 days. This to replace all previous stimulants as of today. Take 1 tablet by lew th three times daily for 30 days. Take 1 tablet by lew th three times a day for 30 days. Take 1 tablet by lew th three times a day for 14 days. docusate sodium 100 mg oral capsule (2 sources) Start: 08-31-19 End: 09-10-19 take 1 capsule by mouth in the morning docusate sodium (Colace) 100 MG capsule Indications: Constipation due to slow transit Take 1 capsule (100 mg) by mouth in the morning and 1 capsule (100 mg) before bedtime. Do all this for 10 days. 20 capsule 0 08/31/2023 09/10/2023 Active DULoxetine 60 mg delayed release oral capsule (20 sources) Serotonin and Norepinephrine Reuptake Inhibitor Start: 04-20-20 End: 10-26-19 take 1 capsule by mouth twice daily DULoxetine (CYMBALTA) 60 mg capsule Take 1 capsule by mouth two times a day. 180 capsule 1 10/26/2023 Active Start: 12-01-2022 End: 04-17-2023 take 1 capsule by mouth twice daily DULoxetine (CYMBALTA) 60 mg capsule Take 1 capsule by mouth twice daily. 180 capsule 1 04/17/2023 Active Start: 07-08-2022 End: 12-01-2022 take 1 capsule by mouth once daily DULoxetine (CYMBALTA) 60 mg capsule Take 1 capsule by mouth once daily. 180 capsule 1 10/03/2022 12/01/2022 Discontinued Cymbalta 60 MG O ral Capsule Delayed Release Particles Quantity: 0 Refills: 0 Ordered: 02-Mar-2023 DO Active Comment on above: [facility]. Take 1 capsule by [facility] twice daily. Take 1 capsule by mo ut two times a day. fluticasone propionate 0.05 mg/actuat metered dose nasal spray (5 sources) Corticosteroid Start: take 1 spray(s) nasal route twice daily Fluticasone Propionate Active 1 SPRAY INTRANASAL Twice daily July 06, 2023 1:00am administer into each nostril Flonase 50 MCG/A CT SUSP Quantity: 0 Refills: 0 Ordered: 02-Mar-2023 DO Active 60 actuat fluticasone propionate 0.25 mg/actuat / salmeterol 0.05 mg/actuat dry powder inhaler (10 sources) Corticosteroid, beta2-Adrenergic Agonist Start: 08-18-2022 Wixela Inhub 25 0-50 mcg/dose diskus inhaler 08/18/2022 Active Start: 08-18-2022 End: 08-31-2023 Fluticasone-Salmeterol 250-5 0 MCG/ACT aerosol powder Inhale 1 Inhalation in the morning and 1 Inhalation before bedtime. 0 08/18/2022 08/31/2023 Discontinued (Therapy completed) Uaoaufkqmxs-Mznjmnxjz-Tzfbdm er (2 sources) Start: 07-06-2023 Bfxmhyboxwq-Hzcbcbjld-Wuekck er (Trelegy Ellipta) 200-62.5-25 mcg Blister With Device Active 1 INH INHALATION Daily July 06, 2023 1:00am Start: 07-06-2023 Fluticasone-Um eclidin-Vilanter (Trelegy Ellipta) 200-62.5-25 mcg Blister With Device Active 1 INH INHALATION Daily July 06, 2023 12:00am lamoTRIgine 200 mg oral tablet (20 sources) Mood Stabilizer, Anti-epileptic Agent Start: 04-17-2023 End: 10-26-2023 take 1 tablet by mouth twice daily lamoTRIgine (LAMICTAL) 200 mg tablet Take 1 tablet by mouth two times a day. 180 tablet 1 10/26/2023 Active Start: 12-01-2022 End: 01-11-2023 take 1 tablet by mouth twice daily lamoTRIgine (LAMICTAL) 200 mg tablet Take 1 tablet by mouth twice daily. 180 tablet 1 12/07/2022 01/11/2023 Discontinued Start: 07-08-2022 End: 12-01-2022 take 1 tablet by mouth once daily lamoTRIgine (LAMICTAL) 200 mg tablet Take 1 tablet by mouth once daily. 180 tablet 1 10/03/2022 12/01/2022 Discontinued LaMICtal 200 MG Oral Tablet Quantity: 0 Refills: 0 Ordered: 02-Mar-2023 DO Active Comment on above: Take 1 tablet by lew th once daily. Take 1 tablet by lew th twice daily. Take 1 tablet by lew th two times a day. levothyroxine sodium 0.15 mg oral tablet (16 sources) l-Thyroxine Start: 3 End: 4 take 150 ug by mouth once daily in the morning Levothyroxine Active 150 MCG PO Every morning July 06, 2023 1:00am Synthroid 150 MC G Oral Tablet Quantity: 0 Refills: 0 Ordered: 02-Mar-2023 DO Active lisinopril 2.5 mg oral tablet (6 sources) Angiotensin Converting Enzyme Inhibitor Start: 07-08-2023 End: 08-27-2024 take 2.5 mg by mouth once daily Lisinopril Active 2.5 MG PO Daily July 08, 2023 1:00am loratadine 10 mg oral tablet (16 sources) Start: 07-06-2023 take 1 tablet by mouth once daily Loratadine (Claritin) 10 mg Tablet Active 10 MG PO Daily July 06, 2023 1:00am Claritin 10 MG O ral Capsule Quantity: 0 Refills: 0 Ordered: 02-Mar-2023 DO Active methocarbamol 500 mg oral tablet (16 sources) Muscle Relaxant Start: 07-06-2023 take 500 mg by mouth every eight hours Methocarbamol Active 500 MG PO Q8H July 06, 2023 1:00am Start: 01-17-2023 take 1 tablet by lew three times daily methocarbamol (Robaxin) 750 mg tablet Take 1 tablet (750 mg) by mouth 3 times a day. 01/17/2023 Active Methocarbamol 50 0 MG Oral Tablet Quantity: 0 Refills: 0 Ordered: 02-Mar-2023 DO Active methylphenidate hydrochloride 20 mg oral tablet (11 sources) Central Nervous System Stimulant Start: 10-09-2022 End: 11-08-2022 take 1 tablet by mouth three times daily methylphenidate (Ritalin) 20 mg tablet Take 1 tablet (20 mg) by mouth 3 times a day. 10/10/2022 Active Comment on above: Take 1 tablet by lew th three times daily for 30 days. 24 hr metoprolol succinate 50 mg extended release oral tablet (18 sources) beta-Adrenergic Gigi Start: 07-08-2023 take 1 tablet by mouth every twenty-four hours in the morning metoprolol succinate XL (Toprol-XL) 50 MG 24 hr tablet Take 1 tablet by mouth in the morning. 0 07/08/2023 Active Start: 07-08-2023 End: 08-27-2024 take 1 tablet by mouth once daily metoprolol succinate XL (Toprol-XL) 50 mg 24 hr tablet Indications: Hypertension, unspecified type Take 1 tablet (50 mg) by mouth once daily. 90 tablet 3 08/28/2023 08/27/2024 Active Start: 05-11-2023 metoprolol suc cinate XL (Toprol-XL) 25 mg 24 hr tablet 05/11/2023 Active take 1 tablet by lew every twenty-four hours Metoprolol Succinate ER 25 MG Oral Tablet Extended Release 24 Hour Quantity: 0 Refills: 0 Ordered: 02-Mar-2023 DO Active omeprazole 40 mg delayed release oral capsule (16 sources) Proton Pump Inhibitor Start: 03-27-2023 take 40 mg by mouth twice daily Omeprazole Active 40 MG PO Twice daily July 06, 2023 1:00am PriLOSEC 40 MG C PDR Quantity: 0 Refills: 0 Ordered: 02-Mar-2023 DO Active ondansetron 8 mg oral tablet (16 sources) Serotonin-3 Receptor Antagonist Start: 07-06-2023 take 8 mg by mouth every six hours Ondansetron Hcl Active 8 MG PO Q6H July 06, 2023 1:00am take 1 tablet by lew every eight hours as needed for nausea and vomiting ondansetron (Zofran) 8 MG tablet Take 1 tablet by mouth every 8 (eight) hours if needed for nausea or vomiting 0 Active Zofran 8 MG TABS Quantity: 0 Refills: 0 Ordered: 02-Mar-2023 DO Active polyethylene glycol 3350 75713 mg powder for oral solution (1 source) Osmotic Laxative Start: 08-31-2023 End: 09-03-2023 polyethylene glycol, PEG, 3350 (MiraLax) 17 GM/SCOOP powder Indications: Constipation due to slow transit Take 17 g by mouth in the morning for 3 days. 51 g 0 08/31/2023 09/03/2023 Active prasugrel 10 mg oral tablet (9 sources) P2Y12 Platelet Inhibitor Start: 12-09-2022 prasugrel (Effient) 10 mg tablet 12/09/2022 Active spironolactone 25 mg oral tablet (6 sources) Aldosterone Antagonist Start: 08-28-2023 End: 08-27-2024 take 1 tablet by mouth once daily spironolactone (Aldactone) 25 mg tablet Indications: Hypertension, unspecified type Take 1 tablet (25 mg) by mouth once daily. 90 tablet 3 08/28/2023 08/27/2024 Active Start: 07-08-2023 take 0.5 tablet by m outh in the morning spironolactone (Aldactone) 25 MG tablet Take 0.5 tablets by mouth in the morning. 0 07/08/2023 Active Start: 07-08-2023 take 12.5 mg by mout h once daily Spironolactone Active 12.5 MG PO Daily July 08, 2023 1:00am topiramate 50 mg oral tablet (10 sources) Start: 12-15-2022 End: 01-11-2023 topiramate (Topamax) 50 mg tablet 12/15/2022 Active Comment on above: Take 1 tablet by lew th twice daily. Trelegy Ellipta 200-62.5-25 mcg blister with device (9 sources) Start: 12-22-2022 Trelegy Ellipt a 200-62.5-25 mcg blister with device 12/22/2022 Active Start: 12-22-2022 Trelegy Ellipt a 200-62.5-25 mcg blister with device Trelegy Ellipta 200-62.5-25 MCG/ACT aerosol powder (2 sources) Start: 12-22-2022 Trelegy Ellipt a 200-62.5-25 MCG/ACT aerosol powder Inhale 1 Inhalation in the morning. 0 12/22/2022 Active Completed/Discontinued Medications Medication Drug Class(es) Dates Sig (Normalized) Sig (Original) amphetamine aspartate 5 mg / amphetamine sulfate 5 mg / dextroamphetamine saccharate 5 mg / dextroamphetamine sulfate 5 mg oral tablet (11 sources) Central Nervous System Stimulant Start: 07-08-2022 End: 11-02-2022 take 1 tablet by mouth three times daily dextroamphetamine-am phetamine (ADDERALL) 20 mg tablet Indications: Hypersomnolence , Chronic fatigue syndrome Take 1 tablet by mouth three times daily for 30 days. 90 tablet 0 10/03/2022 10/09/2022 Discontinued Comment on above: Take 1 tablet by lew th three times daily for 30 days. barium sulfate (E-Z-Paque) 96 % (w/w) suspension 110 mL (1 source) Start: 01-01-2024 End: 01-01-2024 take 110 mL by mouth once 110 mL, oral, Once in imaging, Starting on Mon01/01/24 at 1129, For 1 dose barium sulfate (Entero Vu) 24 % suspension 600 mL (1 source) Start: 01-01-2024 End: 01-01-2024 take 600 mL by mouth once 600 mL, oral, Once in imaging, Starting on Mon01/01/24 at 1129, For 1 dose Trelegy Ellipta 200-62.5-25 MCG/ACT Inhalation Aerosol Powder Breath Activated (3 sources) Trelegy Ellipta 200-62.5-25 MCG/ACT Inhalation Aerosol Powder Breath Activated Quantity: 0 Refills: 0 Ordered: 02-Mar-2023 DO Active 24 hr verapamil hydrochloride 180 mg extended release oral capsule (11 sources) Calcium Channel Gigi Start: 07-06-2023 End: 07-08-2023 take 360 mg by mouth once daily in the morning Verapamil Discontinued 360 MG PO Every morning July 06, 2023 1:00am July 08, 2023 1:01pm Start: 05-07-2023 verapamil ER ( Veralan PM) 180 mg 24 hr capsule 05/07/2023 Active Problems Active Problems Problem Classification Problem Date Documented Da te Episodic/Chronic Acute myocardial infarction (13 sources) Myocardial infarction; Translations: [Acute myocardial infarction, unspecified] Onset: 3 06-07-2023 Chronic Anxiety disorders (20 sources) Generalized anxiety disorder; Translations: [Generalized anxiety disorder] Onset: 2 Chronic Aortic; peripheral; and visceral artery aneurysms (4 sources) Thoracic aortic aneurysm without rupture; Translations: [Thoracic aortic aneurysm without rupture] Onset: 2 08-01-2023 Chronic Asthma (15 sources) Asthma; Translations: [Unspecified asthma, uncomplicated] Onset: 3 06-07-2023 Chronic Attention-deficit, conduct, and disruptive behavior disorders (2 sources) Attention deficit hyperactivity disorder, predominantly inattentive type; Translations: [Attention-deficit hyperactivity disorder, predominantly inattentive type] Chronic Biliary tract disease (2 sources) Gallstone; Translations: [Calculus of gallbladder without cholecystitis without obstruction] Onset: 4 08-31-2023 Episodic Cardiac dysrhythmias (1 source) Ventricular premature depolarization; Translations: [Ventricular premature depolarization] Onset: 3 Chronic Congestive heart failure; nonhypertensive (2 sources) Heart failure with reduced ejection fraction; Translations: [Unspecified systolic (congestive) heart failure] Onset: 2 08-01-2023 Chronic Coronary atherosclerosis and other heart disease (7 sources) 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; Translations: [Arteriosclerotic vascular disease] Onset: 2 Chronic Disorders of lipid metabolism (7 sources) Dyslipidemia; Translations: [Hyperlipidemia, unspecified] Onset: 9 07-07-2023 Chronic Esophageal disorders (20 sources) Gastroesophageal reflux disease; Translations: [Gastro-esophageal reflux disease without esophagitis] Onset: 0 06-07-2023 Chronic Essential hypertension (11 sources) Hypertensive disorder; Translations: [Essential (primary) hypertension] Onset: 9 06-07-2023 Chronic Glaucoma (1 source) Primary open angle glaucoma; Translations: [Primary open-angle glaucoma, bilateral, mild stage] 08-31-2023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 above: Performed By: #### YUAN Savage, CBCNO #### [facility] [address] Creatinine [Mass/volume] in Serum or PlasmaOrdered By: Christophe Stockton on 07-08-2023 Creatinine [Mass/Vol] 0.61 mg/dL Normal 0.60-1.20 [facility] Comment on above: Performed By: #### YUAN Savage, CBCNO #### [facility] [address] Erythrocyte distribution wid th [Ratio] by Automated countOrdered By: Christophe Stockton on 07-08-2023 Erythrocyte distribution width (RBC) [Ratio] 14.9 % Normal 11.9-15.3 [facility] Comment on above: Performed By: #### YUAN Savage, CBCNO #### [facility] [address] Erythrocytes [#/volume] in B lood by Automated countOrdered By: Christophe Stockton on 07-08-2023 RBC (Bld) [#/Vol] 4.38 10*6/uL Normal 3.60-5.00 [facility] Comment on above: Performed By: #### YUAN Savage, CBCNO #### [facility] [address] Glucose [Mass/volume] in Ser um or PlasmaOrdered By: Christophe Stockton on 07-08-2023 Glucose [Mass/Vol] 114 mg/dL High 70-100 [facility] Comment on above: ADA recommended refe rence rangeRandom Glucose Reference Range is dependent on time and content of last meal. Glucose of more than 200 mg/dL in a nonstressed, ambulatory subject supports the diagnosis of Diabetes Mellitus. Result Comment: [place] Glucose Reference Range is dependent on time and content of last meal. Glucose of more than 200 mg/dL in a nonstressed, ambulatory subject supports the diagnosis of Diabetes Mellitus. ADA recommended reference range Performed By: #### M G, BMP, CBCNO #### [address] Hematocrit [Volume Fraction] of Blood by Automated countOrdered By: Christophe Stockton on 07-08-2023 Hematocrit (Bld) [Volume fraction] 36.9 % Normal 34.0-46.4 [facility] Comment on above: Performed By: #### M Dyana, BMP, CBCNO #### [address] Hemoglobin [Mass/volume] in BloodOrdered By: Christophe Stockton on 07-08-2023 Hemoglobin (Bld) [Mass/Vol] 12.4 g/dL Normal 11.8-15.4 [facility] Comment on above: Performed By: #### Lyle Turpin, YUAN, CBCNO #### [address] Hemogram CBC Without Diffon 07-08-2023 Mean Corpuscular HGB Conc 33.7 g/dL Normal 32.0-35.0 [facility] Comment on above: Performed By: #### M Dyana, YUAN, CBCNO #### [address] WBC (Bld) [#/Vol] 8.3 10*3/uL Normal 3.8-11.6 [facility] Comment on above: Performed By: #### Lyle Turpin, YUAN, CBCNO #### [address] Leukocytes [#/volume] correc keenan for nucleated erythrocytes in Blood by Automated counOrdered By: Christophe Stockton on 07-08-2023 WBC corrected for nucl RBC Auto (Bld) [#/Vol] 8.3 10*3/uL 3.8-11.6 [facility] MCH [Entitic mass] by Automa keenan countOrdered By: Christophe Stockton on 07-08-2023 MCH (RBC) [Entitic mass] 28.3 pg Normal 24.7-34.3 [facility] Comment on above: Performed By: #### M Dyana, BMP, CBCNO #### [facility] [address] [place] [address] MCHC Auto (RBC) [Mass/Vol]Or dered By: Christophe Stockton on 07-08-2023 MCHC (RBC) [Mass/Vol] 33.7 g/dL 32.0-35.0 [facility] MCV [Entitic volume] by Auto mated countOrdered By: Christophe Stockton on 07-08-2023 MCV (RBC) [Entitic vol] 84.2 fL Normal 80-100 [facility] Comment on above: Performed By: #### M YUAN Turpin, CBCNO #### [address] Magnesium [Mass/volume] in S jackson or PlasmaOrdered By: Christophe Stockton on 07-08-2023 Magnesium [Mass/Vol] 1.9 mg/dL Normal 1.9-2.7 [facility] Comment on above: Result Comment: PERF ORMED BY: [place] [address] PATHOLOGIST PRODUCT SAFETY ADMINISTRATOR CUONG JULIO M.D. Performed By: #### M YUAN Turpin, CBCNO #### [address] No Panel InformationOrdered By: Christophe Stockton on 07-08-2023 Estimated GFR (CKD-EPI) > 60.0 mL/Min [facility] Creatinine Clearance (Chem 123.15 [facility] Platelet mean volume [Entiti c volume] in Blood by Automated countOrdered By: Christophe Stockton on 07-08-2023 Platelet mean volume (Bld) [Entitic vol] 8.6 fL Normal 6.3-10.7 [facility] Comment on above: Result Comment: PERF ORMED BY: [place] [address] PATHOLOGIST PRODUCT SAFETY ADMINISTRATOR CUONG JULIO M.D. Performed By: #### M YUAN Turpin, CBCNO #### [facility] [address] [place] [address] Platelets [#/volume] in Bloo d by Automated countOrdered By: Christophe Stockton on 07-08-2023 Platelets (Bld) [#/Vol] 363 10*3/uL Normal 150-450 [facility] Comment on above: Performed By: #### YUAN Savage, CBCNO #### [address] Potassium [Moles/volume] in Serum or PlasmaOrdered By: Christophe Stockton on 07-08-2023 Potassium [Moles/Vol] 3.9 mmol/L Normal 3.5-5.1 [facility] Comment on above: Performed By: #### YUAN Savage, CBCNO #### [address] Serum or plasma anion gap de terminationOrdered By: Christophe Stockton on 07-08-2023 Anion gap [Moles/Vol] 9.5 mmol/L Normal 6.0-15.0 [facility] Comment on above: Performed By: #### YUAN Savage, CBCNO #### [address] Sodium [Moles/volume] in Ser um or PlasmaOrdered By: Christophe Stockton on 07-08-2023 Sodium [Moles/Vol] 137 mmol/L Normal 136-145 [facility] Comment on above: Performed By: #### YUAN Savage CBCNO #### [facility] [address] [place] [address] [place] Urea nitrogen [Mass/volume] in Serum or PlasmaOrdered By: Christophe Stockton on 07-08-2023 Urea nitrogen [Mass/Vol] 9 mg/dL Normal 7-25 [facility] Comment on above: Performed By: #### YUAN Savage, CBCNO #### [place] [address] [place] Activated partial thrombopla stin time (aPTT) in platelet poor plasma by coagulation aOrdered By: Jayden Joe on 07-07-2023 aPTT Coag (PPP) [Time] 61.5 s 25.1-36.5 [facility] Comment on above: A hematocrit value g reater than 55% may lead to inaccurate results in coagulation testing. Patients having hematocrit values >55% require a special collection tube for coagulation studies. Please contact the laboratory at [phone] for redraw instructions. Automated basophil %Ordered By: Vangie Gonzalez on 07-07-2023 Basophils/100 WBC (Bld) 0.3 % Normal . [facility] Comment on above: Performed By: #### B MP, LIPID, CBC ####[address] Automated basophil countOrde red By: Vangie Gonzalez on 07-07-2023 Basophils (Bld) [#/Vol] 0.0 10*3/uL Normal 0.0-0.2 [facility] Comment on above: Result Comment: PERF ORMED BY: [facility] [address] [place] [address] PATHOLOGIST PRODUCT SAFETY ADMINISTRATOR CUONG JULIO M.D. Performed By: #### B MP, LIPID, CBC ####[address] Automated blood monocyte cou ntOrdered By: Vangie Gonzalez on 07-07-2023 Monocytes (Bld) [#/Vol] 0.7 10*3/uL Normal 0.0-0.8 [facility] Comment on above: Performed By: #### B MP, LIPID, CBC ####[address] Automated eosinophil %Ordere d By: Vangie Gonzalez on 07-07-2023 Eosinophils/100 WBC (Bld) 0.9 % Normal . [facility] Comment on above: Performed By: #### B MP, LIPID, CBC ####[address] Automated eosinophil countOr dered By: Vangie Gonzalez on 07-07-2023 Eosinophils (Bld) [#/Vol] 0.1 10*3/uL Normal 0.0-0.45 [facility] Comment on above: Performed By: #### B MP, LIPID, CBC ####[address] Automated monocyte %Ordered By: Vangie Gonzalez on 07-07-2023 Monocytes/100 WBC (Bld) 5.8 % Normal . [facility] Comment on above: Performed By: #### B MP, LIPID, CBC ####[address] Automated neutrophil %Ordere d By: Vangie Gonzalez on 07-07-2023 Neutrophils/100 WBC (Bld) 64.2 % Normal . [facility] Comment on above: Performed By: #### B MP, LIPID, CBC ####[address] Basic Metabolic Panelon 12-0 Anion gap [Moles/Vol] 13.1 mmol/L Normal 6.0-15.0 e [facility] Comment on above: Performed By: #### B MP, LIPID, CBC ####[address] Calcium [Mass/Vol] 9.5 mg/dL Normal 8.6-10.3 [facility] Comment on above: Performed By: #### B MP, LIPID, CBC ####[address] Chloride [Moles/Vol] 108 mmol/L High 98-107 [facility] Comment on above: Performed By: #### B MP, LIPID, CBC ####[address] CO2 [Moles/Vol] 22.9 mmol/L Normal 21.0-31.0 [facility] Comment on above: Performed By: #### B MP, LIPID, CBC ####[address] Creatinine [Mass/Vol] 0.56 mg/dL Low 0.60-1.20 [facility] Comment on above: Performed By: #### B MP, LIPID, CBC ####[place] [id number] [place] Creatinine Clr Calc Pharmacy 134.29 Normal [facility] Comment on above: Performed By: #### B MP, LIPID, CBC ####[place] [address] [address] GFR/1.73 sq M.predicted MDRD (S/P/Bld) [Vol rate/Area] mL/min/{1.73_m2} Normal [facility] Comment on above: Performed By: #### B MP, LIPID, CBC ####[address] Glucose [Mass/Vol] 109 mg/dL High 70-100 [facility] Comment on above: Result Comment: [facility] Glucose Reference Range is dependent on time and content of last meal. Glucose of more than 200 mg/dL in a nonstressed, ambulatory subject supports the diagnosis of Diabetes Mellitus. ADA recommended reference range Performed By: #### B MP, LIPID, CBC ####[place] [address] [address] Potassium [Moles/Vol] 4.0 mmol/L Normal 3.5-5.1 [facility] Comment on above: Performed By: #### B MP, LIPID, CBC ####[address] Sodium [Moles/Vol] 140 mmol/L Normal 136-145 [facility] Comment on above: Performed By: #### B MP, LIPID, CBC ####[address] Urea nitrogen [Mass/Vol] 11 mg/dL Normal 7-25 [facility] Comment on above: Performed By: #### B MP, LIPID, CBC ####[address] Cholesterol [Mass/volume] in Serum or PlasmaOrdered By: Vangie Gonzalez on 07-07-2023 Cholesterol [Mass/Vol] 183 mg/dL Normal 140-200 [facility] Comment on above: Chol less than 200 m g/dl low riskChol 201-239 mg/dl borderline riskChol 240 mg/dl and greater high risk Result Comment: Chol less than 200 mg/dl low risk Chol 201-239 mg/dl borderline risk Chol 240 mg/dl and greater high risk Performed By: #### B MP, LIPID, CBC ####[place] [address] [address] Cholesterol in LDL Calc [Mas s/Vol]Ordered By: Vangie Gonzalez on 07-07-2023 Cholesterol in LDL [Mass/Vol] 103 mg/dL 0-100 [facility] Comment on above: LDL ATP III CLASSIFI CATIONLDL less than 100 mg/dL OptimalLDL 100-129 mg/dL Near or above optimalLDL 130-159 mg/dL Borderline highLDL 160-189 mg/dL HighLDL greater than 189 mg/dL Very high Cholesterol in VLDL Calc [Ma ss/Vol]Ordered By: Vangie Gonzalez on 07-07-2023 Cholesterol in VLDL [Mass/Vol] 27 mg/dL [facility] Complete Blood Count Auto Di ffon 07-07-2023 Erythrocyte distribution width (RBC) [Ratio] 14.9 % Normal 11.9-15.3 [facility] Comment on above: Performed By: #### B MP, LIPID, CBC ####[address] Hematocrit (Bld) [Volume fraction] 37.1 % Normal 34.0-46.4 [facility] Comment on above: Performed By: #### B MP, LIPID, CBC ####[address] Hemoglobin (Bld) [Mass/Vol] 12.2 g/dL Normal 11.8-15.4 [facility] Comment on above: Performed By: #### B MP, LIPID, CBC ####[address] MCH (RBC) [Entitic mass] 27.6 pg Normal 24.7-34.3 [facility] Comment on above: Performed By: #### B MP, LIPID, CBC ####[place] [id number] [facility] MCV (RBC) [Entitic vol] 83.9 fL Normal 80-100 [facility] Comment on above: Performed By: #### B MP, LIPID, CBC ####[address] Mean Corpuscular HGB Conc 32.9 g/dL Normal 32.0-35.0 [facility] Comment on above: Performed By: #### B MP, LIPID, CBC ####[address] NRBC% 0.1 /100{WBC} Normal 0-0.5 [facility] Comment on above: Performed By: #### B MP, LIPID, CBC ####[address] Platelet mean volume (Bld) [Entitic vol] 8.8 fL Normal 6.3-10.7 [facility] Comment on above: Performed By: #### B MP, LIPID, CBC ####[address] Platelets (Bld) [#/Vol] 355 10*3/uL Normal 150-450 [facility] Comment on above: Performed By: #### B MP, LIPID, CBC ####[address] RBC (Bld) [#/Vol] 4.42 10*6/uL Normal 3.60-5.00 [facility] Comment on above: Performed By: #### B MP, LIPID, CBC ####[address] ECG 12 lead ECGon 07-07-2023 ECG 12 lead ECG [facility] Main [place] [address] [place] [address] Electrocardiograph Report Signed Patient: Talya Bahena MR#: [id number] 5 : 1975 Acct:[id number] Age/Sex: 48 / F ADM Date: 07/06/23 Loc: Room: [address] [place] [address] Type: ADM IN Attending Dr: Christophe Stockton DO Ordering Provider: Vangie Gonzalez APRN Date of Service: 07/07/2303/22/500 ECG/ECG 12 lead ECG: NSTEMI Copies to: Test Reason : Blood Pressure : / mmHG Vent. Rate : 072 BPM Atrial Rate : 072 BPM P-R Int : 142 ms QRS Dur : 090 ms QT Int : 438 ms P-R-T Axes : 010 084 068 degrees QTc Int : 479 ms Normal sinus rhythm Normal ECG No previous ECGs available Confirmed by PAMELA COTTO [facility] ([id number]) on 07/07/2023 9:51:56 AM Referred By: Electronically Signed By:SHERMAN SANTIAGO MD [facility] Transcribed By: MUS Signed By Sherman Santiago MD, [facility] 07/07/23 0951 Normal [facility] echo transthoracicon [facility] echo transthoracic [facility] [place] [address] Echocardiogram Signed Patient: Talya Bahena MR#: [id number] 5 : 1975 Acct:[id number] Age/Sex: 48 / F ADM Date: 07/06/23 Loc: Room: [address] [place] [address] Type: ADM IN Attending Dr: Christophe Stockton DO Ordering Provider: Vangie Gonzalez APRN Date of Service: 07/07/2303/22/500 [facility] echo transthoracic: heart murmur, NSTEMI Copies to: Sherman Santiago MD, [facility] Vangie Gonzalez APRN BSA: 2.0 m2 BP: 97/69 mmHg HR: 52 Reason For Study: heart murmur, NSTEMI History: PTCA,Asthma,Former smoker Interpretation Summary The LV wall thickness is consistent 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 Resting LV Max Pressure Gradient = 50 mmhg Ejection Fraction = 35-40%. MV EARL is present with no significant mitral regurgitation severe apical left ventricular ballooning Mild aortic root dilatation. The aortic root is 4.1 cm There is no prior echocardiogram noted for this patient. Procedure/Quality: A two-dimensional transthoracic echocardiogram with color flow, Doppler and injection of contrast agent Definity was performed. The study was technically good in quality. There is no prior echocardiogram noted for this patient. 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 Resting LV Max Pressure Gradient = 50 mmhg. MV EARL is present with no significant mitral regurgitation severe apical left ventricular ballooning. Ejection Fraction = 35-40%. Left Atrium: The left atrium appears normal in size. The atrial septum appears normal. Right Atrium: The right atrium appears normal in size. Right Ventricle: The right ventricular size, thickness and function are normal. Aortic Valve: The aortic valve is normal in structure and function. Mitral Valve: The mitral valve is normal in structure and function. Tricuspid Valve: The tricuspid valve is normal. Pulmonic Valve: The pulmonic valve leaflets are thin and pliable; valve motion is normal. Arteries: Mild aortic root dilatation. The aortic root is 4.1 cm. Pericardium/Pleura: No pericardial effusion seen. There is no pleural effusion. IVC/Hepatic Viens: The IVC is normal in size with an inspiratory collapse of greater then 50%, suggesting normal right atrial pressure. Miscellaneous: No thrombus, vegetation or mass is seen. Measurements with Normals IVSd: 1.4 cm (0.7-1.1 cm)LVIDd: 3.9 cm (3.7-5.4 cm) LVPWd: 1.2 cm (0.7-1.1 cm)LVIDs: 2.6 cm (2.3-3.6 cm) LA dimension: 3.3 cm (2.3-4.0 cm)Ao root diam: 4.0 cm(2.0-3.6 cm) asc Aorta Diam: 4.0 cm(2.1-3.4cm) Doppler with Normals RVSP(TR): 22.4 mmHg (18-35mmHg) LV V1 max: 149.5 cm/sec (0.7-1.7m/s)MV E max salo: 75.5 cm/sec(0.8-1.3m/s) MV A max salo: 79.3 cm/sec(0.0-0.0m/s) MV E/A: 0.95 (<1.5) MMode/2D Measurements Calculations TAPSE: 2.5 cm FS: 33.0 % Ao root area: LVOT diam: 2.3 cm RV S Salo: EDV(Teich): 12.8 cm2 LVOT area: 4.0 cm2 13.8 cm/sec 64.2 ml ESV(Teich): 24.2 ml EF(Teich): 62.2 % __ LVLd ap4: 8.5 cm SV(MOD-sp4): LAV(MOD-sp4): LA A2 area: 14.2 cm2 EDV(MOD-sp4): 55.7 ml 30.6 ml 122.0 ml LAV(MOD-sp2): LA A4 area: 13.9 cm2 LVLs ap4: 7.4 cm 32.3 ml LA length (vol): ESV(MOD-sp4): 4.7 cm 66.3 ml LA vol: 35.8 ml EF(MOD-sp4): 45.7 % LA vol index: 18.2 ml/m2 Doppler Measurements Calculations MV dec time: MV max PG: E/E' lat: 8.1 MV dec slope: 0.18 sec 109.0 mmHg E/E' med: 10.4 411.3 cm/sec2 __ Ao V2 max: LV V1 max PG: MR max salo: TV max P.0 mmHg 123.1 cm/sec 8.9 mmHg 520.6 cm/sec Ao max PG: LV V1 mean PG: MR max P.1 mmHg 6.0 mmHg 110.5 mmHg Ao mean PG: LV V1 mean: 4.1 mmHg 119.5 cm/sec Ao V2 mean: LV V1 VTI: 29.7 cm 99.1 cm/sec Ao V2 VTI: 25.4 cm SKYLER(I,D): 4.7 cm2 SKYLER(V,D): 4.9 cm2 __ TR max salo: 208.7 cm/sec TR max P.4 mmHg RAP systole: 5.0 mmHg EARL ( systolic anterior motion of MV ) Apical ballooning of the left ventricle ___ Transcribed By: SCV Performed At: 07/07/23 0826 Signed By: Sherman Santiago MD, [facility] 07/07/23 1054 Normal [facility] Leukocytes [#/volume] in Blo od by Automated countOrdered By: Vangie Gonzalez on 07-07-2023 WBC (Bld) [#/Vol] 11.8 10*3/uL High 3.8-11.6 [facility] Comment on above: Performed By: #### B MP, LIPID, CBC ####[place] [address] [address] Lipid Panelon 07-07-2023 LDL Cholesterol,Calculated 103 mg/dL High 0-100 [facility] Comment on above: Result Comment: LDL ATP III CLASSIFICATION LDL less than 100 mg/dL Optimal LDL 100-129 mg/dL Near or above optimal LDL 130-159 mg/dL Borderline high LDL 160-189 mg/dL High LDL greater than 189 mg/dL Very high Performed By: #### B MP, LIPID, CBC ####[place] [address] [address] Triglyceride w/Reflex 136 mg/dL Normal 0-149 [facility] Comment on above: Result Comment: TRIG ATP III CLASSIFICATION TRIG less than 150 mg/dL Normal TRIG 150-199 mg/dL Borderline high TRIG 200-500 mg/dL High TRIG greater than 500 mg/dL Very high Standard traceable to the Center for Disease Conrtrol and Prevention (CDC) test method. Performed By: #### B MP, LIPID, CBC ####[facility] [id number] VLDL CHOLESTEROL 27 mg/dL Normal [facility] Comment on above: Performed By: #### B MP, LIPID, CBC ####[facility] Lymphocytes [#/volume] in Bl ood by Automated countOrdered By: Vangie Gonzalez on 07-07-2023 Lymphocytes (Bld) [#/Vol] 3.4 10*3/uL Normal 1.00-4.8 [facility] Comment on above: Performed By: #### B MP, LIPID, CBC ####[place] [address] [address] Lymphocytes/100 leukocytes i n Blood by Automated countOrdered By: Vangie Gonzalez on 07-07-2023 Lymphocytes/100 WBC (Bld) 28.8 % Normal . [facility] Comment on above: Performed By: #### B MP, LIPID, CBC ####[place] [address] Neutrophils [#/volume] in Bl ood by Automated countOrdered By: Vangie Gonzalez on 07-07-2023 Neutrophils (Bld) [#/Vol] 7.6 10*3/uL Normal 1.8-7.7 [facility] Comment on above: Performed By: #### B MP, LIPID, CBC ####[address] Nucleated erythrocytes [Pres ence] in Blood by Automated countOrdered By: Vangie Gonzalez on 07-07-2023 Nucleated RBC Auto Ql (Bld) 0.1 /100{WBC} 0-0.5 [facility] Partial Thromboplastin Timeo n 07-07-2023 aPTT Coag (Bld) [Time] 61.5 s High 25.1-36.5 Th e [facility] Comment on above: Result Comment: A he matocrit value greater than 55% may lead to inaccurate results in coagulation testing. Patients having hematocrit values >55% require a special collection tube for coagulation studies. Please contact the laboratory at [phone] for redraw instructions. PERFORMED BY: [facility] [address] [place] [address] PATHOLOGIST PRODUCT SAFETY ADMINISTRATOR CUONG JULIO M.D. Performed By: #### P TT ####[address] Serum or plasma high density lipoprotein (HDL) cholesterol measurementOrdered By: Vangie Gonzalez on 07-07-2023 Cholesterol in HDL [Mass/Vol] 53 mg/dL Normal 23-92 [facility] Comment on above: HDL CHOL ATP-III CLA SSIFICATION Cardiovascular RiskHDL > or equal to 60 mg/dL LOWHDL < 40 mg/dL HIGH Result Comment: HDL CHOL ATP-III CLASSIFICATION Cardiovascular Risk HDL > or equal to 60 mg/dL LOW HDL < 40 mg/dL HIGH Performed By: #### B MP, LIPID, CBC ####[place] [address] [place] [id number] [facility] Serum or plasma total choles terol/high density lipoprotein (HDL) cholesterol mass ratOrdered By: Vangie Gonzalez on 07-07-2023 Cholesterol.total/Choles terol in HDL [Mass ratio] 3.5 {ratio} Normal <5.0 [facility] Comment on above: Result Comment: PERF ORMED BY: [address] [place] [address] PATHOLOGIST PRODUCT SAFETY ADMINISTRATOR CUONG JULIO M.D. Performed By: #### B MP, LIPID, CBC ####[place] [id number] [facility] Triglyceride [Mass/volume] i n Serum or PlasmaOrdered By: Vangie Gonzalez on 07-07-2023 Triglyceride [Mass/Vol] 136 mg/dL 0-149 F [facility] Comment on above: TRIG ATP III CLASSIF ICATIONTRIG less than 150 mg/dL NormalTRIG 150-199 mg/dL Borderline highTRIG 200-500 mg/dL High TRIG greater than 500 mg/dL Very highStandard traceable to the Center for Disease Conrtrol and Prevention (CDC) test method. Troponin I High Sensitivityo n 07-07-2023 Troponin I High Sensitivity 635.6 pg/mL Off scale high 0.0-15.0 [facility] Comment on above: Result Comment: Crit ical Result : Called to and read back by: ISAK MORGAN at: 07/07/2023 06:04:07 by:[id number] PERFORMED BY: [facility] [address] [id number] PATHOLOGIST PRODUCT SAFETY ADMINISTRATOR CUONG JULIO M.D. Performed By: #### H S TROP ####[place] [id number] [facility] Troponin I.cardiac [Mass/vol ume] in Serum or Plasma by Detection limit <= 0.01 ng/Ordered By: Vangie Gonzalez on 07-07-2023 Troponin I.cardiac DL <= 0.01 ng/mL [Mass/Vol] 635.6 pg/mL 0.0-15.0 [facility] Comment on above: Critical Result : Ca lled to and read back by: ISAK MORGAN at: 07/07/2023 06:04:07 by:[id number] US venous duplex LE BIon US venous duplex LE BI [facility] Main [place] [address] [place], [place] [id number] Ultrasound Report Signed Patient: Talya Bahena MR#: [id number] 5 : 1975 Acct:[id number] Age/Sex: 48 / F ADM Date: 07/06/23 Loc: Room: [address] [place] [address] Type: ADM IN Attending Dr: Christophe Stockton DO Ordering Provider: Jayden Joe MD Date of Service: 07/07/23 US/US venous duplex LE BI: Rule out DVT Copies to: MD Christophe Nunez DO BILATERAL LOWER EXTREMITY VENOUS DUPLEX INDICATION: Dyspnea with elevated d-dimer PROCEDURE: Color-flow duplex scanning is used to interrogate the deep venous system of the right and left lower extremities. The common femoral vein, femoral vein and popliteal vein show good compressibility with normal proximal and distal augmentation. The posterior tibial and peroneal veins are compressible. US/US venous duplex LE BI IMPRESSION: NO EVIDENCE FOR DEEP VEIN THROMBOSIS OR PROXIMAL SUPERFICIAL THROMBOPHLEBITIS IN THE RIGHT OR LEFT LOWER EXTREMITY. Impression dictated by: Andreas Sinha M.D.07/07/2023 1:13 PM Dictation Location: [facility] Tech: Yesy Chuyita Transcribed By: YOHANNES 07/07/23 1313 Dictated By: Andreas Sinha MD 07/07/231312 Signed By: 07/07/23 1313 Normal [facility] ECG 12 lead ECGon 07-06-2023 ECG 12 lead ECG [facility] [address] Electrocardiograph Report Signed Patient: Talya Bahena MR#: [id number] 5 : 1975 Acct:[id number] Age/Sex: 48 / F ADM Date: 07/06/23 Loc: Room: [address] [place] [address] Type: ADM IN Attending Dr: Christophe Stockton DO Ordering Provider: Vangie Gonzalez APRN Date of Service: 07/06/2302/20/2056 ECG/ECG 12 lead ECG: NSTEMI Copies to: Test Reason : Blood Pressure : / mmHG Vent. Rate : 075 BPM Atrial Rate : 075 BPM P-R Int : 152 ms QRS Dur : 104 ms QT Int : 424 ms P-R-T Axes : 002 070 069 degrees QTc Int : 473 ms Normal sinus rhythm Early repolarization Vs pericarditis Borderline ECG Confirmed by PAMELA COTTO [facility] ([id number]) on 07/07/2023 9:51:42 AM Referred By: NOMckayla Electronically Signed By:SHERMAN SANTIAGO MD [facility] Transcribed By: OSCAR Signed By Sherman Santiago MD, FACC 07/07/23 0951 Normal [facility] INR in Platelet poor plasma by Coagulation assayOrdered By: Vangie Gonzalez on 07-06-2023 INR Coag (PPP) [Relative time] 1.0 {INR} Normal [facility] Comment on above: INR Therapeutic Rang e A) Pre- and Peroperative OAT started two weeks before surgery. NOT HIP SURGERY: 1.5 - 2.5 HIP SURGERY: 2 - 3B) Primary and secondary prevention of venous THROMBOSIS: 2 - 3C) Active venous thrombosis, pulmonary embolismand prevention of recurrent venous thrombosis: 2 - 3D) Prevention of arterial thromboembolismincluding patients with mechanical heart valves: 3 - 4.5 Result Comment: INR Therapeutic Range A) Pre- and Peroperative OAT started two weeks before surgery. NOT HIP SURGERY: 1.5 - 2.5 HIP SURGERY: 2 - 3 B) Primary and secondary prevention of venous THROMBOSIS: 2 - 3 C) Active venous thrombosis, pulmonary embolism and prevention of recurrent venous thrombosis: 2 - 3 D) Prevention of arterial thromboembolism including patients with mechanical heart valves: 3 - 4.5 Performed By: #### P TT, PT #### [place] [id number] [facility] Partial Thromboplastin Timeo n 07-06-2023 aPTT Coag (Bld) [Time] 39.1 s High 25.1-36.5 [facility] Comment on above: Result Comment: A he matocrit value greater than 55% may lead to inaccurate results in coagulation testing. Patients having hematocrit values >55% require a special collection tube for coagulation studies. Please contact the laboratory at [phone] for redraw instructions. PERFORMED BY: [place] [address] PATHOLOGIST PRODUCT SAFETY ADMINISTRATOR CUONG JULIO M.D. Performed By: #### P TT, PT #### [address] Prothrombin time (PT)Ordered By: Vangie Gonzalez on 07-06-2023 PT Coag (PPP) [Time] 11.7 s Normal 9.0-12.9 [facility] Comment on above: A hematocrit value g reater than 55% may lead to inaccurate results in coagulation testing. Patients having hematocrit values >55% require a special collection tube for coagulation studies. Please contact the laboratory at [phone] for redraw instructions. Result Comment: A he matocrit value greater than 55% may lead to inaccurate results in coagulation testing. Patients having hematocrit values >55% require a special collection tube for coagulation studies. Please contact the laboratory at [phone] for redraw instructions. Performed By: #### P TT, PT #### [place] [id number] [place] Troponin I High Sensitivityo n 07-06-2023 Troponin I High Sensitivity 1352.7 pg/mL Off scale high 0.0-15.0 [facility] Comment on above: Result Comment: Crit ical Result : Called to and read back by: TITUS BARTON at: 07/06/2023 23:09:16 by:[id number] PERFORMED BY: [place] [address] PATHOLOGIST PRODUCT SAFETY ADMINISTRATOR CUONG JULIO M.D. Performed By: #### H S [facility] ####[facility] [id number] [place] [address] [facility] COLONOSCOPYon 06-07-2023 Colonoscopy Table formatting fro m the original result was not included. [facility] EGDon 06-07-2023 Esophagogastroduodenosco py Table formatting from the original result was not included. [facility] Comment on above: Order Comment: WITH NAVARRETE CLIP PLACEMENT No Panel Informationon 06-07 Addendum by Mansoor Bosch MD on 06/07/2023 1:45 PM EST Table formatting from the original result was not included. Impression Grade C esophagitis in the GE junction Irregular Z-line The stomach, duodenal bulb, 1st part of the duodenum and 2nd part of the duodenum appeared normal. Small hiatal hernia Findings Moderate, patchy grade C esophagitis with mucosal breaks measuring 5 mm or more, continuous between folds, covering less than 75% of the circumference, showing erythematous mucosa in the GE junction Irregular Z-line 34 cm from the incisors The stomach, duodenal bulb, 1st part of the duodenum and 2nd part of the duodenum appeared normal. Small hiatal hernia. Hill grade II hiatal hernia Recommendation Schedule repeat EGD Follow up for repeat colonoscopy and EGD with manometry Indication Unspecified abdominal hernia without obstruction or gangrene Post Procedure Diagnosis Esophagitis Staff Staff Role No Staff Documented Medications See Anesthesia Record. Preprocedure A history and physical has been performed, and patient medication allergies have been reviewed. The patient's tolerance of previous anesthesia has been reviewed. The risks and benefits of the procedure and the sedation options and risks were discussed with the patient. All questions were answered and informed consent obtained. Details of the Procedure The patient underwent monitored anesthesia care, which was administered by an anesthesia professional. The patient's blood pressure, level of consciousness, oxygen, respirations, heart rate, ECG and ETCO2 were monitored throughout the procedure. The scope was introduced through the mouth and advanced to the second part of the duodenum. Retroflexion was performed in the cardia. Prior to the procedure, the patient's H. Pylori status was unknown. The patient experienced no blood loss. The procedure was not difficult. The patient tolerated the procedure well. There were no apparent adverse events. Events Procedure Events Event Event Time Specimens No specimens collected Procedure Location [facility] [address] [facility] [address] [place] [address] [address] [facility] [place] [address] Procedure Provider Yesy Bosch MD [facility] Work Phone: [phone] Table formatting fro m the original result was not included. Impression Poor prep - procedure aborted Findings Poor prep with copious amount of soft and hard stool Recommendation Schedule repeat colonoscopy Inadequate bowel preparation Indication Unspecified abdominal hernia without obstruction or gangrene Post Procedure Diagnosis Poor prep Medications See Anesthesia Record. Preprocedure A history and physical has been performed, and patient medication allergies have been reviewed. The patient's tolerance of previous anesthesia has been reviewed. The risks and benefits of the procedure and the sedation options and risks were discussed with the patient. All questions were answered and informed consent obtained. Details of the Procedure The patient underwent monitored anesthesia care, which was administered by an anesthesia professional. The patient's blood pressure, heart rate, level of consciousness, respirations, oxygen, ECG and ETCO2 were monitored throughout the procedure. A digital rectal exam was performed. The scope was introduced through the anus. Bowel prep was not adequate. The patient tolerated the procedure well. There were no apparent adverse events. Events Procedure Events Event Event Time ENDO SCOPE IN TIME 06/07/2023 11:32 AM ENDO SCOPE OUT TIME 06/07/2023 11:36 AM Specimens No specimens collected Procedure Location [facility] [address] [facility] [address] [place] [address] [address] [facility] [place] [address] Procedure Provider Juju Teran MD [facility] Work Phone: [phone] [facility] Work Phone: [phone] Radiology Study observation (narrative) [facility] Work Phone: [phone] Radiology Study observation (narrative) [facility] Work Phone: [phone] No Panel InformationOrdered By: Yesy Bosch on 06-07-2023 [facility] Work Phone: Falls Screening (Age 18+)on 03-02-2023 Adult depression screening assessment Yes [facility] Work Phone: Adult depression screening assessment No [facility] Work Phone: Fall risk assessment a) No falls within the last year [facility] Work Phone: Tobacco use status [facility] b) No [facility] Work Phone: Initial Visit (General Surge ry)on 03-02-2023 Initial Visit (General Surgery) Diagnoses/Problems Other dysphagia (787.29) (R13.19) Hernia, abdominal (553.9) (K46.9) Orders Hernia, abdominal CT Abdomen and Pelvis with Oral Contrast Only; Status:Hold For - Scheduling,Retrospective Authorization; Requested for:[id number]; Perform: Radiology Services Imaging; Due:10Yhi3310; Last Updated By:Marilee Hand; 03/02/2023 12:08:44 PM;Ordered; For:Hernia, abdominal; Ordered By:Andreas Andrade; Patient taking Metformin or Derivatives? : Unknown Radiologist to Determine Optimal Study : Y What are the patient's signs and symptoms? : abdominal pain Hernia, abdominal, Other dysphagia Follow-up PRN Outpatient Follow-up Status: Active Requested for: [id number] Ordered Stat;For: Hernia, abdominal, Other dysphagia; Ordered By: Andreas Andrade Performed: Due: 31May2023 Patient Discussion/Summary Patient has a multitude of foregut symptoms including dysphagia and spitting up. It is unclear if this represents recurrence in her hiatal hernia or a component of esophageal motility dysfunction. I have recommended an upper endoscopy with manometry. It also is unclear if she actually is having reflux in the face of twice daily proton pump inhibitors and I have recommended a Navarrete study off medications as well. She states that she has a strong family history of colon cancer and is due to undergo colonoscopy and we will therefore perform a colonoscopy via her stoma and pureing them. As for surgical intervention, this would based on a CT scan as well as the endoscopic work-up. She also desires to have revision of her stoma and she will be referred to the colorectal surgery service for consideration of simultaneous reciting of her transverse colostomy and closure of her parastomal hernia. Risks of endoscopic evaluation were explained including bleeding, infection, perforation, and premature dislodgment of Navarrete capsule as well as missed lesions with the colonoscopy as well as possible need for subsequent endoscopic or surgical intervention. After her work-up has been completed, we will then discuss appropriate surgical intervention as needed. Provider Impressions Patient has a multitude of foregut symptoms including dysphagia and spitting up. It is unclear if this represents recurrence in her hiatal hernia or a component of esophageal motility dysfunction. I have recommended an upper endoscopy with manometry. It also is unclear if she actually is having reflux in the face of twice daily proton pump inhibitors and I have recommended a Navarrete study off medications as well. She states that she has a strong family history of colon cancer and is due to undergo colonoscopy and we will therefore perform a colonoscopy via her stoma and pureing them. As for surgical intervention, this would based on a CT scan as well as the endoscopic work-up. She also desires to have revision of her stoma and she will be referred to the colorectal surgery service for consideration of simultaneous reciting of her transverse colostomy and closure of her parastomal hernia. Risks of endoscopic evaluation were explained including bleeding, infection, perforation, and premature dislodgment of Navarrete capsule as well as missed lesions with the colonoscopy as well as possible need for subsequent endoscopic or surgical intervention. After her work-up has been completed, we will then discuss appropriate surgical intervention as needed. History of Present Illness Patient is a 48-year-old female with a complex surgical history who presents with frequent episodes of dysphagia and spitting up. She underwent a laparoscopic hiatal hernia repair and fundoplication which she states has recurred as well as associated with vagal injury leading to gastroparesis. Approximately 4 years ago she underwent gastric peroral pyloromyotomy with improvement in her nausea and vomiting symptoms. She denies abdominal pain or vomiting at this time but does report chest discomfort and pain which she states mimics her cardiac disease. She is approximate 1 year status post a myocardial infarction. Patient is also status post a sigmoid loop colostomy in the periumbilical region for chronic pelvic floor disease and chronic constipation. She complains of difficulty with pouching the stoma as well as a parastomal hernia. Patient denies hematemesis, weight loss, nor bright red blood per stoma. She has not had endoscopic, manometric, nor objective pH monitoring. She states that she takes Prilosec twice daily. She has no recent imaging although says that she was told that there was a small recurrent hernia. Active Problems Hernia, abdominal (553.9) (K46.9) Allergies Adhesive Tape TAPE Recorded By: Christelle Doan; 03/02/2023 11:46:07 AM Current Meds Medication NameInstruction Albuterol 90 MCG/ACT AERS Aspirin 81 MG Oral Tablet Chewable Claritin 10 MG Oral Capsule Cymbalta 60 MG Oral Capsule Delayed Release Particles Dextroamphetamine Sulfate 10 MG Oral Tablet Flonase 50 MCG/ACT SUSP LaMICtal 200 MG Oral Tablet Lipitor (more content not included)... Normal [employer] Initial Visit (General Surge ry)on 12-12-2022 Initial Visit (General Surgery) No report was sent [facility] 8 (BAS METB)on Anion gap [Moles/Vol] 11.5 mmol/L Normal [facility] Comment on above: Performed By: #### T , BMP #### [facility] [address] [address] [address] Wes Leonard Calcium [Mass/Vol] 8.9 mg/dL Normal 8.5-10.1 [facility] Comment on above: Performed By: #### T , BMP #### [facility] [address] [address] [address] Wes Leonard Chloride [Moles/Vol] 104 mmol/L Normal 98-107 [facility] Comment on above: Performed By: #### T ULI, BMP #### [facility] [address] [address] [address] Wes Leonard CO2 [Moles/Vol] 26.3 mmol/L Normal 21.0-32.0 [facility] Comment on above: Performed By: #### T , BMP #### [facility] [address] [address] [address] Wes Leonard Creatinine [Mass/Vol] 0.74 mg/dL Normal 0.55-1.02 [facility] Comment on above: Performed By: #### T SH, BMP #### [facility] [address] [address] [address] Wes Leonard EGFR-AF COOK ISLANDER >60 Normal >=60 [facility] Comment on above: Performed By: #### T SH, BMP #### [facility] [address] [address] [address] Wes Leonard EGFR-NON AF COOK ISLANDER >60 Normal >=60 [facility] Comment on above: Performed By: #### T SH, BMP #### [facility] [address] [address] [address] Wes Leonard Glucose [Mass/Vol] 166 mg/dL Critically high 74-[address] [facility] Comment on above: Performed By: #### T SH, BMP #### [facility] [address] [place] [address] Dr. Wes Leonard Potassium [Moles/Vol] 3.8 mmol/L Normal 3.5-5.1 [facility] Comment on above: Performed By: #### T SH, BMP #### [facility] [address] [place] [address] Dr. Wes Leonard Sodium [Moles/Vol] 138 mmol/L Normal 136-145 [facility] Comment on above: Performed By: #### T SH, BMP #### [facility] [address] [place] [address] Dr. Wes Leonard Urea nitrogen [Mass/Vol] 10.0 mg/dL Normal 7.0-18.0 [facility] Comment on above: Performed By: #### T SH, BMP #### [facility] [address] [place] [address] Dr. Wes Leonard Urea nitrogen/Creatinine [Mass ratio] 13.5 mg/mg Normal [facility] Comment on above: Performed By: #### T SH, BMP #### [facility] [address] [place] [address] Dr. Wes Leonard TSHon 10-21-2022 TSH 1.062 uIU/mL Normal 0.358-3.74 0 [facility] Comment on above: Performed By: #### T ULI BMP #### [facility] [address] [address] [address] Wes Leonard FREE T3on 05-12-2022 FREE T3 3.08 pg/mlL Normal 2.18-3.98 [facility] Comment on above: Performed By: #### T ULI BMP, FT3 #### [facility] [address] [place] [address] Dr. Wes Leonard PROF CHEM 8 (BAS METB)on Anion gap [Moles/Vol] 11.3 mmol/L Normal Th e [facility] Comment on above: Performed By: #### T YUAN MCNALLY, FT3 #### [facility] [address] [place] [address] Dr. Wes Leonard Calcium [Mass/Vol] 9.4 mg/dL Normal 8.5-10.1 [facility] Comment on above: Performed By: #### T ULI BMP, FT3 #### [facility] [address] [place] [address] Dr. Wes Leonard Chloride [Moles/Vol] 106 mmol/L Normal 98-107 [facility] Comment on above: Performed By: #### T YUAN MCNALLY, FT3 #### [facility] [address] [place] [address] Dr. Wes Leonard CO2 [Moles/Vol] 26.3 mmol/L Normal 21.0-32.0 [facility] Comment on above: Performed By: #### T ULI BMP, FT3 #### [facility] [address] [place] [address] Dr. Wes Leonard Creatinine [Mass/Vol] 0.73 mg/dL Normal 0.55-1.02 [facility] Comment on above: Performed By: #### T ULI BMP, FT3 #### [facility] [address] [place] [address] Dr. Wes Leonard EGFR-AF COOK ISLANDER >60 Normal >=60 [facility] Comment on above: Performed By: #### T ULI BMP, FT3 #### [facility] [address] [address] [address] Wes Leonard EGFR-NON AF COOK ISLANDER >60 Normal >=60 [facility] Comment on above: Performed By: #### T ULI BMP, FT3 #### [facility] [address] [address] [address] Wes Leonard Glucose [Mass/Vol] 116 mg/dL Critically high 74-106 [facility] Comment on above: Performed By: #### T ULI BMP, FT3 #### [facility] [address] [place] [address] Dr. Wes Leonard Potassium [Moles/Vol] 4.6 mmol/L Normal 3.5-5.1 [facility] Comment on above: Performed By: #### T ULI BMP, FT3 #### [facility] [address] [place] [address] Dr. Wes Leonard Sodium [Moles/Vol] 139 mmol/L Normal 136-145 [facility] Comment on above: Performed By: #### T ULI BMP, FT3 #### [facility] [address] [place] [address] Dr. Wes Leonard Urea nitrogen [Mass/Vol] 10.0 mg/dL Normal 7.0-18.0 [facility] Comment on above: Performed By: #### T ULI BMP, FT3 #### [facility] [address] [place] [address] Dr. Wes Leonard Urea nitrogen/Creatinine [Mass ratio] 13.7 mg/mg Normal [facility] Comment on above: Performed By: #### T ULI BMP, FT3 #### [facility] [address] [place] [address] Dr. Wes Leonard TSHon 05-12-2022 TSH 0.129 uIU/mL Critically low 0.358-3.74 0 [facility] Comment on above: Performed By: #### T ULI, BMP, FT3 #### [facility] [address] [place] [address] Dr. Wes Leonard Coding Summaryon 02-03-2022 Coding Summary [employer]Base 64 FruefwrsKYl9mPh+PGhlYWQ+P O5ZNAOxK54zaACoyD2YW7mLPM 4TBXAQNVZRVL4WGK3hsZO3JKa lV2LmzcBz JxtamLRmLY95CHt0ACL8pKaqM MtjwE9qqLTnF9g9XbMxXR54tT 53LYkkHDWoRiW5GqYxroewvRA y M6cdFdQuiUZjDlr+PHRhYmxlI HdpZHRoPScxMDAlJyBzdHlsZT 6wVl4oAUZjWYQwbWndgHDpAfE j c1oyIECmQDxjYE0yvDsoY0Jnw SZ5BDZuj2o9Dg90iGI+PHRkIH I2nYprLRrqi626ZfBye4qlPZT 3 rAIsRHetQLX0C80lt2Z6TIDtC MEpMGE8uVX5sR7lhWtowowhF1 FfjCVnVeV5DJA4eTPdeR5yqMv n inujbG5tFbn+S32RWX6WKJNZP Q0IRmo1Q6RiRcvlcDL+PC90YW WeHJ50eHXqlDIcq0ohkRu2XwG w VHAbWLM7qBfvHGepw3KsMAVzO 55jhNXau4O2LRSqjOkpkGOtHw WbhXX8aJ8oJRuwvjvvk2bpfls n Kawfj2eula46oP47T66aCYeyJ IGjOML6LHWwZOVzbFehtq9ytT 9wIi8+HLsuq6xfb8fvuTp0IhX w LMKnqaXuuVrrTJF1b4EpFm42T 0DefNdey1JjCui7xi24aVBuc8 Y1cAT1ARfbTGHbvY9bNOflHwW 6 QUAiPiXpoT66cTRqCBqbLm7sr LllsJrxHJ4pWOLgeefhLRMmmU 1uFRNhlZZqrRmvXO5gLNPqbyl m z104BvBnCLN8GMOjeUZoE7Auw X6kSlYkGALhLQPfO7LuuQCxWS qtX710LJpuIyF9MKVancOkP8F s GZWvoWslKbM4y2H0De0Mt8Bnn kpoPKP2EClhRXG7BdF4IdUaAj F8A0OcPes7YDUqyHjwFQ9cR3S h GVHnibwkljafuZY8IJYkQFDlm A15pRGbIKmrTd6vw6T3o470GK IoDPShzN54Im2zbOgrTEYdgXW U dH0wgwehq8mwvuxvQlIrSGZeJ Ri0ULe8OWKxdDjtAqDpTEZ6Ih Y9CRP7rJFlcB6plKmpdsboaO3 w Oyc+V56hcE9nZUX1FLF7qxcqA CHgpwEpYB07UP22L3TtLyabyY FibGU+DFUcvgKlqPssMW5wWqG j c3bnq4PsZHdpY5TvYGJmIHafW fn5UCSmCLX7xCA0fC6mUTAnNS qhg9K0mTC5B6JhyfWrpf8tj2n s TNEoZWnsT32pjUNms8N1YCInp KH8FIYwdHksRrLuuR10Cxj+PG YuoHggm4LyWqjnj7yqy2jvsQy 9 MsAtZHCmnpGhhOmhYMT8e7JeQ f63M31qGGzxGDKyTAOiEPDbSU UciZxorw6nhV2vCj1+PGNvbCB 3 fLK9nQ6zUVGbMqM8BIxfM344N yHxiNWcMjpkk3tvl6ggrGp0Ek JdCNRimsUsgEwcOKH9c5TkBn4 8 B81tFIcaXOKrBFWzVEAmSTTlc Rnepp0dgT9pOm2+NW9yi6fpuc 54fV62mUE+YEIlDYQ4yPcrKZe w CBPkhT8dGGkdKnZ5UTJgTvZjq B95yPDpSNnoCc9amRblcJmkXH 2hISCpnjovs398TgHlj3yzEIR w jLPfGCycWPS4U32nk0K2QJRqT SXkQBQ0sRM2pI1czYyhsdqztR YmmKbcrbEqtJmoENnwARjgA74 6 IHRvcDsnPlBhdGllbnQgTmFtZ Ap8E8DxOix2GAWtsThcJT6nfH TsNEhaUp1qaKuoaVkiSX4sPYD p fkcxm552IlTwd4cqCVUjbNPnU LopFEQ1J52py6N9IJDhNYUqUM P9kZJ0pD7axGknilvioXEnxTi g rqCwkAsaXIxxUAlhE829OZJgl SakZxVrpjQtEPLbuTL9JH29UW 63jWVcn5Y7zDM0U1VkSLKggyr t smqizUW8QBVhWJDgwH36Hb8ia OaiBx4eLDSzWKW0VHSrmPXfJ2 RzfE5fAaRoFGXdEIKcQ0XxkTK t YDnuQ051VGlaLlV7XAKuwkVdJ 1CxZITemJknGcY6g5G8Pk0CO4 G0SF37EY19gQAki4W8xYZ5U8A h BKSyuowctkqsgSO1TWAjVGKur E74Wb3wuCfnBa6fKKVfOXC1AU ElvGOjY6QggC7hCiIaSCBfCYH w X5ZdbHMtKRzbC197YAocTrD7J MMxfkXaL1HcAHHdzYjxOhS2a6 F5Gp4JGQc1PP66TY03aNCzh1C 5 fNW4P0SgMXRksvlxhsbvyEW6O DMcTHYhyF61Hu2lfVweBy9zJI ExSOG0FCDbwQClE5TzmD9sVaU j YNOtWRNvO6EreYUgBWzhM249C CnfWfQ8BUJilhErM5UlXVVzxT mgHrA2t7X1Hf2AVVLeKD11SEW 5 hNR7FI04JG70W7RrKrutwZTlp +PHRhYmxlIHdpZHRoPScxMD ReMgDqcThwQN0nSq4aUEBwTWP v zVnetPCcDqCyn4jrGIGwNVdnS X1uoJvmP8XmyKJ4LBGzw4s5Po 20V47fH5AooMD+BJUgdFT8xNT 0 mO0vCjHpEsP3KMnwK381PvApu FGwEcxqx2hcu9vyxHw7ElC4SF JxzsXtsAmlPUZ7n0NyWg59W70 s IHdpZHRoPSIxNSUiIHZhbGlnb m9zbW5dIx8+OWApsMH0tPF9bC 0yVoScKcF0MShaY723XwAdvUY v Tdowm7mjy6owkMa6XdQtKETgv bOyiTxtDDU4m4IlHh54G9SvdJ dzh9LxCrg0sh81yHDlb1A7rFM 9 Y3HfUQIeguuabZNkpHffUG1aM VRuuunnXAVgwB3eQJWiY0a4Kx OuMoV1YHupH6XcqkN1FMPkjCJ g SRbkBWB9X73wg3A3MANaXOXaC JR4uOO2tG4qnBfgcisrfNMdyU tixdIflAjqORnyYMkjY196UQX v pVnrXZPuaQ1iTVBbvGFagOchB C3dAXXvsneoUnkFS0LHD1NyWZ QHYFOXZM0MIF96TG34tDWuz6G 5 uDR4T3AcVCTgtxktgcmvjME2B OVrUGTgxS40yGNmNDokMj7sr7 E2t295PENfVSLdtC50Lv3qaFz g BQOiaETTeL2femspc5ldzjxxK oNiICWfZKe0VJq7PPCvpHjgOy AoOYK1MgX3GGN5dFRbtZ7flHu n weddiE2hJqh+SRtyYEOmSPx2U zwvdGQ+EVYnZOG3uYsvAEinNH NawE8aVHSwH9c6YjHnPzR2GQa u E8ErXPCzjxhyGy75hA2hLgYgS eV2UBucR4HtlyM8YPYrdEPtBD eaHTS9W38ew3H2OXKzUBQcOOI 7 jKU3dA4rbFnpzhnnpTNzqWakj kBvdUtgATuzJStcW187IEZawH ryBdW5JMdsLRIoSH56YF75uCB g u7H3eAP9J8QrAYKlayvyfnufk JL6THPdBVNrhC26zQSeHJmgPr 3tj0E5d056TRHbLSWscP65Kd2 u zVcoOAFquDGZyP2jlcxph1usx itcUpXzJMJzKSh8GKv5EHUesL heFgKaGFY5ZqW2CWV9hJTnuH2 h oTddymgvfI9sUud+RkVNQUxFP D80WT12mALrd1M7xWS8J0EbVR YjrxdhnuqceII2FNGiJWAsoP0 7 iYMyMJrnFp5em1M4a411LAPiU HLqkP97Yf9bvBwgBRTlfRWAcD 8rcenur5wirrzuQjViMMYiFLz 0 MUc6LWKlvWtsUxBoSTR3FuI5N HK8yOSheR4lqSgceisseV6hHw c+C6K3W1AiVngiuIS+MT57SCZ s SZ55yMRzmUMsp3vxdMd5ThSjZ MNrUXX8xYedFVotq6MgVSGcO1 0zbSVrn6N0ZDCctZsrvFRgJfI l rXZ2gS4kVIaxwtuno3khjtazV hxfs4orlb40sO71E60oQVkqNV EyGFJcYQRkSIVhsNpuug9jhY2 w Ii8+KMEwhJJ3xUW7iE2bCfPmT cL0BWclO131TcQolWFfFgurn1 iys1ndlJv0PfQeZLGmdnQmcNs u XGF3h6UzVp58Z10eJCbrHNHcO DDbYFGmEYAtxYcbwh0tgF6iJj 8+LQ2fl9tflx92xY07fTF+PHR k OZK4pOqgJNxiBSQjpT8rFNoxW qD1HUNrAcIzlQ45qMFhZOreDp 7dsAqljQleVX1eQLErsqwpx81 0 QlElo1sqZMMxqJClNNufPPA8K 92fh7Q1PEVxFEImEKJ0xWF3tI 1hbGlnbjogbGVmdDsgdmVydGl j EEuhWFzuD538TDJkeRwmEoVxp LUqO5xsluZRGT6wExmelPW+PH MnYZD0tZheWKsbKCOhmO0pJLM p X3y0ToNmSmS0EZnfP8NnejL9U HUriJXsRWUklGKToI2zvgqxw2 jhkktoXuDmZBAdHTw9WPp2WFA s cZflWzItRZL1GuU5ZHO8kIGvu G8bwDxicvjexI9pYej+RklOOj wvdGQ+MUCjOLY6oBwqQGcgNVB k kH8kOQShG2f7ZoKhGrI8LAdrP 6KosuJ8QPQqhGIdIAHeiBISfG 8oiuoux1nqztmrZjEiMQXoJPf 0 WTm9FERxkVajIiZnZYO0HoB0T SL0zPEjjR7buMzdwfsqfF7eWx c+TVJOOjwvdGQ+EDCmRJE9jIm l ZRviGLMxjY4yZDVmB5x8ZdSyE iC4WGllI3XsnlQ6DEVsbMFhYB VynQOHsE5xjknrg2ovvthgOoB w DIAbRDr4PRo8UFVpaZkgXzOeS ZA9YtP1OPR2gBVliP1anVqira jxeF3dIeq+OJZ4IAO5UY32DO5 8 J6QuIzrlqLKoqJA+PHRhYmxlI HdpZHRoPScxMDAlJyBzdHlsZT 5oCh4pGIDcDGBibNcbdBNsHoA j b2x (more content not included)... [facility] Provider Orderson 02-02-2022 Provider Orders [id number] FF [facility] Vital Signs Date Time Vital Sign Value Performing Clinician Facility 10-12-2023 09:58-0400 Body height 167.6 cm Symone Hudson MD Work Phone: [facility] 10-12-2023 09:58-0400 Body mass index (BMI) [Ratio] 31.26 kg/m2 Symone Hudson MD Work Phone: [facility] 10-12-2023 09:58-0400 Body weight 87.86 kg Symone Hudson MD Work Phone: [facility] 10-12-2023 09:58-0400 Diastolic blood pressure 72 mm[Hg] Symone Hudson MD Work Phone: [facility] 10-12-2023 09:58-0400 Heart rate 66 /min Symone Hudson MD Work Phone: [facility] 10-12-2023 09:58-0400 Respiratory rate 16 /min Symone Hudson MD Work Phone: [facility] 10-12-2023 09:58-0400 Systolic blood pressure 112 mm[Hg] Symone Hudson MD Work Phone: [facility] 08-31-2023 11:23-0500 Body height 167.6 cm Shaikh Enoch COTTO Work Phone: [facility] 08-31-2023 11:23-0500 Body mass index (BMI) [Ratio] 30.99 kg/m2 Shaikh Enoch COTTO Work Phone: [facility] 08-31-2023 11:23-0500 Body temperature 99.1 [degF] Shaikh Enoch COTTO Work Phone: [facility] 08-31-2023 11:23-0500 Body weight 87.09 kg Shaikh Enoch COTTO Work Phone: [facility] 08-31-2023 11:23-0500 Diastolic blood pressure 72 mm[Hg] Shaikh Enoch COTTO Work Phone: [facility] 08-31-2023 11:23-0500 Heart rate 86 /min Shaikh Enoch COTTO Work Phone: [facility] 08-31-2023 11:23-0500 SaO2% (BldA) [Mass fraction] 99 % Shaikh Enoch COTTO Work Phone: [facility] 08-31-2023 11:23-0500 Systolic blood pressure 108 mm[Hg] Shaikh Enoch COTTO Work Phone: [facility] 07-08-2023 11:01-0500 Body temperature 98.2 [degF] MD Shaikh Kendall Work Phone: [facility] 07-08-2023 11:01-0500 Diastolic blood pressure 62 mm[Hg] MD Shaikh Kendall Work Phone: [facility] 07-08-2023 11:01-0500 Heart rate 72 /min MD Shaikh Kendall Work Phone: [facility] 07-08-2023 11:01-0500 Respiratory rate 18 /min MD Shaikh Kendall Work Phone: [facility] 07-08-2023 11:01-0500 SaO2% (BldA) [Mass fraction] 96 % MD Shaikh Kendall Work Phone: [facility] 07-08-2023 11:01-0500 Systolic blood pressure 109 mm[Hg] MD Shaikh Kendall Work Phone: [facility] 07-08-2023 06:00-0500 Body weight 87.8 kg MD Shaikh Kendall Work Phone: [facility] 07-07-2023 14:23-0500 Body height 167.64 cm MD Shaikh Kendall Work Phone: [facility] 07-07-2023 06:00-0500 Inhaled oxygen flow rate 2 L/min MD Shaikh Kendall Work Phone: [facility] 06-07-2023 13:31-0500 Diastolic blood pressure 68 mm[Hg] Juju Teran MD MPH Work Phone: [facility] 06-07-2023 13:31-0500 Heart rate 81 /min Juju Teran MD MPH Work Phone: [facility] 06-07-2023 13:31-0500 Respiratory rate 16 /min Juju Teran MD MPH Work Phone: [facility] 06-07-2023 13:31-0500 SaO2% (BldA) [Mass fraction] 96 % Juju Teran MD MPH Work Phone: [facility] 06-07-2023 13:31-0500 Systolic blood pressure 100 mm[Hg] Juju Teran MD MPH Work Phone: [facility] 06-07-2023 13:24-0500 Body temperature 97.5 [degF] Juju Teran MD MPH Work Phone: [facility] 06-07-2023 10:08-0500 Diastolic blood pressure 83 mm[Hg] Juju Teran MD MPH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 moderate depression, (15-19) moderately severe depression, (20-27) severe depression PROMIS [employer] No data to display No past medical history on file. No past surgical history on file. Current Outpatient Medications Medication Sig Dispense Refill Dextroamphetamine Sulfate 10 mg tablet Take 1 tablet by mouth three times a day for 30 days. 90 tablet 0 lamoTRIgine (LAMICTAL) 200 mg tablet Take 1 tablet by mouth two times a day. 180 tablet 1 DULoxetine (CYMBALTA) 60 mg capsule Take 1 capsule by mouth two times a day. 180 capsule 1 No current facility-administered medications for this visit. ROS: GENERAL: Negative for malaise, significant weight loss and fever. HEENT: No changes in hearing or vision, no nose bleeds or other nasal problems. RESPIRATORY: Negative for cough, wheezing and shortness of breath. CARDIOVASCULAR: Negative for chest pain, leg swelling and palpitations. GI: Negative for abdominal discomfort, blood in stools or black stools. : Negative for dysuria, frequency and incontinence. MUSCULOSKELETAL: Negative for joint pain or swelling, back pain, and muscle pain. SKIN: Negative for lesions, rash, and itching. HEMATOLOGY/LYMPHOLOGY Negative for prolonged bleeding, bruising easily, and swollen nodes. ENDOCRINE: Negative for cold or heat intolerance, polyuria, polydipsia and goiter. NEURO: Negative for headaches, syncope, seizures and paralysis. VITAL SIGNS: There were no vitals filed for this visit. MENTAL STATUS EXAM: CONSTITUTIONAL: Well groomed, Appropriately dressed, Casually dressed ORIENTATION: Person, Place, Time and Situation MEMORY: Recent intact, Remote intact, Immediate intact CONCENTRATION: Normal MOOD: depressed AFFECT: Full and appropriate to topic SPEECH : Clear & distinct LANGUAGE : Normal ASSOCIATIONS: Intact THOUGHT PROCESS : Logical, Coherent, and Rational PROGRESSION : There was no evidence of disturbance in thought perception or progression. FUND OF KNOWLEDGE : Appropriate and Adequate SUICIDE: None HOMICIDE: None DATA REVIEWED: [facility] DIAGNOSIS: MDD, severe, without psychosis Chronic Fatigue TREATMENT PLAN: No changes today. Psychosocial stressors persist unabated. 1) Continue Dexedrine 10mg three times daily 2) Continue Cymbalta 60mg twice daily 3) Continue Lamictal 200mg twice daily 4) Continue Xanax 1mg twice daily as needed. 5) Return to clinic in 3 months. Call or MyChart sooner as needed. ADD ON PSYCHOTHERAPY CODE : No SIGNATURE: Arash Freeman MD PATIENT NAME: Talya Bahena DATE: January 25, 2024 documented in this encounter [facility] 01-25-2024 Instructions Arash Freeman MD - 01/25/2024 11:00 AM EDT 1) Continue Dexedrine 10mg three times daily 2) Continue Cymbalta 60mg twice daily 3) Continue Lamictal 200mg twice daily 4) Continue Xanax 1mg twice daily as needed. 5) Return to clinic in 3 months. Call or MyChart sooner as needed. Arash Freeman MD January 25, 2024 documented in this encounter [facility] 12-07-2023 Telephone encounter Note Patient requesting refills as follows: Requested Prescriptions Pending Prescriptions Disp Refills Dextroamphetamine Sulfate 10 mg tablet 90 tablet 0 Sig: Take 1 tablet by mouth three times a day for 30 days. Please review and advise. Melania Freeman [facility] 12-07-2023 Miscellaneous Notes Patient requesting refills as follows: Requested Prescriptions Pending Prescriptions Disp Refills Dextroamphetamine Sulfate 10 mg tablet 90 tablet 0 Sig: Take 1 tablet by mouth three times a day for 30 days. Please review and advise. Melania Freeman documented in this encounter [facility] 10-26-2023 History of Presen t illness Narrative Images from the original note were not included. PSYC FOLLOW UP - PSYCHIATRIC PROGRESS NOTE CC: Depression, anxiety, CFS HPI: This was a virtual visit done with audio and video. It was done with the consent of the patient. The patient was at home and I was in my clinic. Patient presents for follow-up. Current medications include the following: Dexedrine 10mg TID Cymbalta 60mg twice daily Xanax 1mg twice daily (PRN) Lamictal 200mg twice daily Using her Xanax at bedtime for sleep - not using very often during the day. No longer on Vraylar. Says she has been not good . Says she had another PA in June and went to the ICU for 3 days. Lost her pet about a month ago. Says doctors were fine with the dexedrine, they were going to give it to me in the hospital. There is no SI, HI, intent or plan. No AVH, delusions or paranoid thinking. Risks and benefits of the medication, including any black box warnings, were discussed with the patient. Interval Progress: worse PATIENT DATA: Generalized Anxiety Disorder Scale (VIVIAN-7) No data to display (0-4) minimal anxiety, (5-9) mild anxiety, (10-14) moderate anxiety, (15-21) severe anxiety Patient Health Questionnaire (PHQ-9) No data to display (0-4) minimal depression, (5-9) mild depression, (10-14) moderate depression, (15-19) moderately severe depression, (20-27) severe depression PROMIS [employer] No data to display No past medical history on file. No past surgical history on file. Current Outpatient Medications Medication Sig Dispense Refill Dextroamphetamine Sulfate 10 mg tablet Take 1 tablet by mouth three times a day for 14 days. 42 tablet 0 lamoTRIgine (LAMICTAL) 200 mg tablet Take 1 tablet by mouth two times a day. 28 tablet 0 DULoxetine (CYMBALTA) 60 mg capsule Take 1 capsule by mouth two times a day. 28 capsule 0 No current facility-administered medications for this visit. ROS: GENERAL: Negative for malaise, significant weight loss and fever. HEENT: No changes in hearing or vision, no nose bleeds or other nasal problems. RESPIRATORY: Negative for cough, wheezing and shortness of breath. CARDIOVASCULAR: Negative for chest pain, leg swelling and palpitations. GI: Negative for abdominal discomfort, blood in stools or black stools. : Negative for dysuria, frequency and incontinence. MUSCULOSKELETAL: Negative for joint pain or swelling, back pain, and muscle pain. SKIN: Negative for lesions, rash, and itching. HEMATOLOGY/LYMPHOLOGY Negative for prolonged bleeding, bruising easily, and swollen nodes. ENDOCRINE: Negative for cold or heat intolerance, polyuria, polydipsia and goiter. NEURO: Negative for headaches, syncope, seizures and paralysis. VITAL SIGNS: There were no vitals filed for this visit. MENTAL STATUS EXAM: CONSTITUTIONAL: Well groomed, Appropriately dressed, Casually dressed ORIENTATION: Person, Place, Time and Situation MEMORY: Recent intact, Remote intact, Immediate intact CONCENTRATION: Normal MOOD: depressed AFFECT: Full and appropriate to topic SPEECH : Clear & distinct LANGUAGE : Normal ASSOCIATIONS: Intact THOUGHT PROCESS : Logical, Coherent, and Rational PROGRESSION : There was no evidence of disturbance in thought perception or progression. FUND OF KNOWLEDGE : Appropriate and Adequate SUICIDE: None HOMICIDE: None DATA REVIEWED: epic DIAGNOSIS: MDD, severe, without psychosis Chronic Fatigue TREATMENT PLAN: Largely stable despite biopsychosocial stressors. No changes today. Will see back in 3 months. 1) Continue Dexedrine 10mg three times daily 2) Continue Cymbalta 60mg twice daily 3) Continue Lamictal 200mg twice daily 4) Continue Xanax 1mg twice daily as needed. 5) Return to clinic in 3 months. Call or MyChart sooner as needed. ADD ON PSYCHOTHERAPY CODE : No SIGNATURE: Arash Freeman MD PATIENT NAME: Talya Bahena DATE: October 26, 2023 documented in this encounter [facility] 10-26-2023 Instructions Arash Freeman MD - 10/26/2023 11:20 AM EDT 1) Continue Dexedrine 10mg three times daily 2) Continue Cymbalta 60mg twice daily 3) Continue Lamictal 200mg twice daily 4) Continue Xanax 1mg twice daily as needed. 5) Return to clinic in 3 months. Call or MyChart sooner as needed. Arash Freeman MD October 26, 2023 documented in this encounter [facility] 10-16-2023 Miscellaneous Notes Pharmacy requesting refills as follows: Requested Prescriptions Pending Prescriptions Disp Refills lamoTRIgine (LAMICTAL) 200 mg tablet [Pharmacy Med Name: LAMOTRIGINE TABS 200MG] 180 tablet 3 Sig: take 1 tablet twice a day DULoxetine (CYMBALTA) 60 mg capsule [Pharmacy Med Name: DULOXETINE HCL DR CAPS 60MG] 180 capsule 3 Sig: TAKE 1 CAPSULE TWICE A DAY Please review and advise. Melania Freeman documented in this encounter [facility] 10-13-2023 Miscellaneous Notes Patient requesting refills as follows: Requested Prescriptions Pending Prescriptions Disp Refills Dextroamphetamine Sulfate 10 mg tablet 90 tablet 0 Sig: Take 1 tablet by mouth three times a day for 30 days. Please review and advise. Melania Freeman documented in this encounter [facility] 10-12-2023 History of Presen t illness Narrative BABAK Bahena is a 48 y.o. female with a complex surgical history who underwent a laparoscopic hiatal hernia repair and fundoplication to which she states has recurred as well as associated with vagal injury leading to gastroparesis. She is also s/p sigmoid loop colostomy for chronic pelvic floor disease and chronic constipation with Dr. Brandon in [place]. She was referred by Dr. Andrade today d/t difficulties with pouching and she desires a relocation of her stoma further away from her umbilicus with parastomal hernia repair. She however is interested in having it changed to an ileostomy. Of note she was admitted 06/2023 at [facility] for chest pain and elevated troponin. EF at that time was 35-40%. She did have a previous PCI to the LAD for wall motion abnormalities. She underwent left heart cath with no further blockages and was started on plavix. She is having leakage of her appliance that affects her QOL. She is having periods of diarrhea and constipation. Reports that she can go weeks without a BM. She was dependent on laxatives for many years. Nothing works for her so she does not take anything to help her have a BM. She has abdominal pain, nausea and bloating when not moving her bowels. She says she can go weeks without BM Colonoscopy 05/2023 (Gene): Poor prep with copious amount of soft and hard stool Non-smoker/No ETOH/No Illicit drug use PMH: as stated above, PA PSH: as stated above Mother an father with colon cancer Employment: Past Medical History: Diagnosis Date Chronic constipation GERD (gastroesophageal reflux disease) Irritable bowel syndrome Past Surgical History: Procedure Laterality Date COLOSTOMY Allergies Allergen Reactions Adhesive Tape-Silicones Unknown Review of Systems Physical Exam Abd soft, NT/ND Assessment and Plan: Concern for dysmotility. Would like to get a SBFT, Evangelistaer, and have her complete the UGI workup Dr Andrade requested. I also would like her to see a water pumper. We discussed my concern in detail about surgical options for this problem. Ileostomy will not fix pain/bloating and all medical options should be exhausted. In addition, she will see the stoma nurses today. Follow up after the above. documented in this encounter [facility] Work Phone: 08-31-2023 History of Presen t illness Narrative Associated Problem(s): Generalized abdominal pain Generalized abdomina discomfort, nausea and associated constipation. Ordered XR abdominal series. Associated Problem(s): Severe episode of recurrent major depressive disorder, without psychotic features (HCC) (CMS/HCC) Poorly controlled depression. Has tried and failed multiple different treatment regimens Following psychiatry. Denies SI/HI Has depressed mood, anhedonia, poorly controlled anxiety, poor sleep. Currently on Cymbalta, Adderrall, Lamotrigine. She is doing somewhat better with increased dose of amitriptyline. Currently using 50 mg . Associated Problem(s): Constipation due to slow transit Chronic, worsening now. Ongoing for 6 months now. She used to get relief with irrigating her colostomy but more recently, this has not been working for her. She feels she has hard compacted stool. She would have liquid BM or drainage and feels back up and is uncomfortable because of it and reporting abdominal discomfort, cramping and nausea. She is not using any laxative currently. Will call in colace, miralax and bisacodyl for her. Asked patient to increase fibre intake, fluid intake. Ordered XR abdominal series. Will follow up on XR. Subjective Patient ID: Talya Bahena is a 48 y.o. female who presents for No chief complaint on file.. Reports worsening constipation for over 6 months now. Worsened recently. She has colostomy in place and reports very hard stool like they are impacted. She has been irrigated her colostomy with no hard stool. She is uncomfortable and feeling nauseous because of that. Able to tolerate PO diet. Denies vomiting. Current Outpatient Medications on File Prior to Visit Medication Sig Dispense Refill acetaminophen (Tylenol) 500 MG tablet Take 1 tablet by mouth every 6 (six) hours if needed for mild pain Adderall 20 MG tablet Take 20 mg by mouth in the morning and 20 mg before bedtime. 2 in am 1 in PM. albuterol HFA 90 mcg/act inhaler Inhale 2 puffs every 4 (four) hours if needed for wheezing or shortness of breath (3 am & 3 pm) ALPRAZolam (Xanax) 1 MG tablet Take 1 tablet by mouth every 6 (six) hours if needed for anxiety Ascorbic Acid (vitamin C) 1000 MG tablet Take 1 tablet by mouth in the morning. aspirin 81 MG EC tablet Take 1 tablet by mouth in the morning. Cymbalta [address] capsule Take 1 capsule by mouth in the morning and 1 capsule before bedtime. lamoTRIgine (LaMICtal) 200 MG tablet Take 1 tablet by mouth in the morning and 1 tablet before bedtime. levothyroxine (Synthroid) 150 MCG tablet Take 1 tablet (150 mcg) by mouth in the morning. Take before meals. 90 tablet 1 Lipitor 80 MG tablet Take 1 tablet by mouth in the morning. lisinopril 2.5 MG tablet Take 2.5 mg by mouth in the morning. loratadine (Claritin) 10 MG tablet Take 1 tablet by mouth in the morning. methocarbamol (Robaxin) 750 MG tablet Take 1 tablet by mouth in the morning and 1 tablet in the evening and 1 tablet before bedtime. metoprolol succinate XL (Toprol-XL) 50 MG 24 hr tablet Take 1 tablet by mouth in the morning. omeprazole (PriLOSEC) [address] capsule Take 1 capsule by mouth in the morning and 1 capsule in the evening. Take before meals. ondansetron (Zofran) 8 MG tablet Take 1 tablet by mouth every 8 (eight) hours if needed for nausea or vomiting spironolactone (Aldactone) 25 MG tablet Take 0.5 tablets by mouth in the morning. Trelegy Ellipta 200-62.5-25 MCG/ACT aerosol powder Inhale 1 Inhalation in the morning. [DISCONTINUED] brimonidine (AlphaGAN P) 0.2 % ophthalmic solution Administer 2 drops into both eyes in the morning and 2 drops before bedtime. [DISCONTINUED] Fluticasone-Salmeterol 250-50 MCG/ACT aerosol powder Inhale 1 Inhalation in the morning and 1 Inhalation before bedtime. [DISCONTINUED] Synthroid 150 MCG tablet Take 1 tablet by mouth in the morning. Take before meals. No current facility-administered medications on file prior to visit. Allergies Allergen Reactions Codeine Hives Reaction(s): Unknown; Note: HIVE , ITCH PER PT [id number] RJN Morphine Hives Reaction(s): Unknown; Note: ITCH , HIVES PER PT SEP 03 Gadolinium Derivatives Hives Pt states that she feels it wasnt the contrast - she had that at the same time as the coedine and the morphone Iodine Rash itching and hives Wound Dressing Adhesive Unknown and Rash Review of System All systems negative except as mentioned in HPI. Visit Vitals BP 108/72 (BP Location: Left arm, Patient Position: Sitting, BP Cuff Size: Large adult) Pulse 86 Temp 99.1 F (Tympanic) Ht 5' 6 Wt 192 lb SpO2 99% BMI 30.99 kg/m Smoking Status Former BSA 2.01 m @LABRESULTS@ No images are attached to the encounter. Objective Reports abdominal discomfort, nausea and constipation. Passing gas and liquid stool Physical Exam General: Comfortable, NAD Resp: Normal RR, CTA b/l CVS: Normal HR, No mumur noted. GI: soft, non tender, non distended. Colostomy in place. Assessment/Plan Problem List Items Addressed This Visit Severe episode of recurrent major depressive disorder, without psychotic features (HCC) (CMS/HCC) - Primary Poorly controlled depression. Has tried and failed multiple different treatment regimens Following psychiatry. Denies SI/HI Has depressed mood, anhedonia, poorly controlled anxiety, poor sleep. Currently on Cymbalta, Adderrall, Lamotrigine. She is doing somewhat better with increased dose of amitriptyline. Currently using 50 mg . Constipation due to slow transit Chronic, worsening now. Ongoing for 6 months now. She used to get relief with irrigating her colostomy but more recently, this has not been working for her. She feels she has hard compacted stool. She would have liquid BM or drainage and feels back up and is uncomfortable because of it and reporting abdominal discomfort, cramping and nausea. She is not using any laxative currently. Will call in colace, miralax and bisacodyl for her. Asked patient to increase fibre intake, fluid intake. Ordered XR abdominal series. Will follow up on XR. Relevant Medications polyethylene glycol, PEG, 3350 (MiraLax) 17 GM/SCOOP powder docusate sodium (Colace) 100 MG capsule bisacodyl (Dulcolax) 5 MG EC tablet Generalized abdominal pain Generalized abdomina discomfort, nausea and associated constipation. Ordered XR abdominal series. Relevant Orders XR abdomen 2 views w chest 1 view Other Visit Diagnoses Primary open angle glaucoma (POAG) of both eyes, mild stage (CMS/HCC) Relevant Medications brimonidine (Alphagan P) 0.15 % ophthalmic solution No follow-ups on file. documented in this encounter [facility] 07-08-2023 Hospital Discharg e instructions Additional Instructions Continue your long-term follow-up with your primary service worker helper in [facility] DISCHARGE INSTRUCTIONS FOR CARDIAC CALIBRATION ENGINEER PHONE NUMBER OF YOUR PHYSICIAN: [phone] PROCEDURE: Heart Cath The following instructions have been prepared to help you care for yourself, or be cared for upon your return home. 1. You were given conscious sedation. Do not operate a vehicle, power tools, make important decisions, or drink alcohol for 24 hours. You might be drowsy or light headed. Return to the Emergency Room if you have trouble breathing, walking or nausea and vomiting. 2. FOR BLEEDING: Apply continuous pressure to the site and call 911. 3. Operative Site Care: Keep the dressing clean and dry. You may change the dressing only if soiled or wet. You may remove the dressing the following morning. You may wash over the puncture site in the shower. If the puncture site is at the wrist no soaking for 3 days. Some bruising or slight swelling may be present. -Signs of infection are redness, warmth, swelling, getting more sore, colored drainage, fever or chills. -Should the arm or leg become cold, numb, blue or white, call the service worker helper immediately. 4. ACTIVITY: You are advised to go directly home from the hospital. Restrict your activities for the rest of the day. Resume light or normal activities tomorrow. Do not engage in any activity that will stress the puncture site. Avoid heavy lifting (over 15 lbs.), straining or bending at the catheter site for 48 hours after discharge. If the puncture site is at the wrist do not manipulate wrist for 24 hours and no lifting more than 3 lbs for 3 days. 5. DIET:You may eat your regular diet when you desire. 6. MEDICATIONS: Resume your daily prescription schedule. Prescriptions may be sent with you if needed. Use as directed. When taking pain medications, you may experience dizziness or drowsiness. Do not drink alcohol or drive when taking pain medications. 7. If you should experience episodes of angina e.g. chest discomfort, heaviness, tightness, pressure, burning, with or without radiation to the neck, jaws, arms, or back- Use 1 Nitrostat under your tongue every 5-10 minutes, and up to 3 tablets. If no relief- Call 911 and go to the nearest Emergency Room. -Notify the office for recurrent angina, chest pain or other concerns. You may NOT drive yourself home! Follow the medication instructions provided on your discharge. If the dosages and instructions on this sheet differ from the dosage and instructions on the bottle, follow the instructions on the bottle. [facility] is not responsible for incorrect prescription information provided by the patient during their visit. Do not stop your medications without consulting your health care provider. Please take the list with you to your next doctor's appointment. [facility] Work Phone: 07-07-2023 Progress note Note Date/Time July 07, 2023 1:08pm [facility] [address] [place] [address] Hospitalist Progress Note Signed Patient: Talya Bahena MR#: [id number] : 1975 Acct:[id number] Age/Sex: 48 / F Adm Date: 3 Loc: Room: [address] [place] [address] Type: ADM IN Attending Dr: Christophe Stockton DO Copies to: ~ Date of Service: 07/07/2023 Subjective Subjective Narrative: Seen and evaluated at bedside after her [facility], findings explained. patient currently resting comfortably and had some questions regarding the duration of her medical therapy for her heart and I essentially told her they would be life long in hopes to regain her heart strength and then maintain it. Exam Physical Exam Vital Signs: Temp Pulse Resp BP Pulse Ox O2 Del Method O2 Flow Rate 97.9 F 89 18 84/53 L 97 Room Air 2 07/07/23 04:00 07/07/23 12:00 07/07/23 12:00 07/07/23 06:00 07/07/23 06:00 07/07/23 08:00 07/07/23 06:00 Narrative: General: Awake alert, no acute distress HEENT: head atraumatic, normocephalic, moist mucous membranes Neck: supple no masses, no lymphadenopathy CVS: regular rate and rhythm, no murmurs or gallops Respiratory: clear to auscultation bilaterally, no wheezing or crackles, symmetric expansion GI: soft, nondistended, nontender, positive bowel sounds with no organomegaly Extremity: moves all extremities, no restrictions of movements, no calf tenderness, no edema Neuro: AOx3, CN II-VII intact. Moves all extremities in all planes of motion. Skin: dry, intact no rashes or lesions Objective Lab Results 07/07/23 04:42 07/07/23 04:42 Meds Allergies and Active Meds Allergies adhesive tape Adverse Reaction (Verified 07/06/23 20:53) Rash Active Meds: Active Medications Generic Name Dose Route Start Last Admin Trade Name Freq PRN Reason Stop Dose Admin Acetaminophen 1,000 mg 07/06/23 20:56 07/06/23 22:46 Acetaminophen 500 Mg Tablet PO 07/05/24 20:55 1,000 mg Q6HR PRN Administration Pain Scale 1 - 3 or fever Al Hydrox/Mg Hydrox/Simethicone 30 ml 07/07/23 11:01 Mag Hydrox/Al Hydrox/Simeth 30 Ml Udc PO 07/06/24 11:00 Q4H PRN Epigastric distress (Non-Card) Alprazolam 0.5 mg 07/06/23 21:36 07/06/23 22:48 Alprazolam 0.5 Mg Tablet PO 01/02/24 21:35 0.5 mg Q6H PRN Administration Anxiety Amitriptyline HCl 12.5 mg 07/06/23 22:00 07/06/23 22:47 Amitriptyline 25 Mg Tablet PO 07/05/24 21:59 12.5 mg HS CATRACHITA Administration Aspirin 81 mg 07/07/23 09:00 07/07/23 09:00 Aspirin 81 Mg Tablet.Dr PO 07/06/24 08:59 81 mg DAILY CATRACHITA Administration Atorvastatin Calcium 80 mg 07/07/23 09:00 07/07/23 09:00 Atorvastatin 80 Mg Tablet PO 07/06/24 08:59 80 mg DAILY CATRACHITA Administration Brimonidine Tartrate 1 drops 07/07/23 09:00 07/07/23 09:01 Brimonidine 0.2% Op Soln 100 Drops/5 Ml Bottle EYE-BOTH 07/06/24 08:59 1 drops BID CATRACHITA Administration Budesonide/Formoterol Fumarate 2 puff 07/07/23 09:00 07/07/23 08:21 Budesonide/Formoterol 160-4.5 Mcg 60 Puff/6 Gm Hfa.Aer.Ad INHALATION 07/06/24 08:59 2 puff BID CATRACHITA Administration Clopidogrel Bisulfate 75 mg 07/08/23 09:00 Clopidogrel Bisulfate 75 Mg Tablet PO 07/07/24 08:59 DAILY CATRACHITA Docusate Sodium 100 mg 07/06/23 22:31 Docusate 100 Mg Capsule PO 07/05/24 22:30 QHS PRN Constipation Duloxetine HCl 60 mg 07/06/23 22:30 07/07/23 09:00 Duloxetine 60 Mg Capsule.Dr PO 07/05/24 22:29 60 mg BID CATRACHITA Administration Enalapril Maleate 2.5 mg 07/08/23 09:00 Enalapril Maleate 2.5 Mg Tablet PO 07/07/24 08:59 DAILY CATRACHITA Fluticasone Propionate 1 spray 07/07/23 09:00 Fluticasone Propionate [place] 120 [place]/16 Gm Bottle INTRANASAL 07/06/24 08:59 BID PRN ALLERGIES/CONGESTION Dextrose/Sodium Chloride 1,000 mls @ 100 mls/hr 07/07/23 09:15 07/07/23 11:30 5 % Dextrose-0.45 % Nacl IV 07/06/24 09:14 0 mls/hr .Q10H CATRACHITA Infusion Dextrose/Sodium Chloride 1,000 mls @ 75 mls/hr 07/07/23 11:15 07/07/23 11:30 5 % Dextrose-0.45 % Nacl IV 07/07/23 17:14 75 mls/hr .[id number] CATRACHITA Administration Ipratropium [place] 0.5 mg 07/07/23 08:00 07/07/23 12:55 Ipratropium [place] 0.5 Mg/2.5 Ml Vial.Neb INHALATION 07/06/24 07:59 0.5 mg QID.RESP CATRACHITA Administration Lamotrigine 200 mg 07/06/23 22:30 07/07/23 09:00 Lamotrigine 100 Mg Tablet PO 07/05/24 22:29 200 mg BID CATRACHITA Administration Levothyroxine Sodium 150 mcg 07/07/23 06:30 07/07/23 07:13 Levothyroxine 150 Mcg Tablet PO 07/06/24 06:29 150 mcg DAILY@0630 CATRACHITA Administration Loratadine 10 mg 07/07/23 09:00 07/07/23 09:12 Loratadine 10 Mg Tablet PO 07/06/24 08:59 Not Given DAILY CATRACHITA Metoprolol Succinate 25 mg 07/07/23 16:00 Metoprolol Succinate 25 Mg Tab.Er.24h PO 07/06/24 15:59 DAILY [facility] Miscellaneous Information 1 each 07/07/23 11:01 Consult To Pharmacy MISCELLANE 07/06/24 11:00 .PHACONSULT PRN ZZ.Pharmacy Consult Protocol Morphine Sulfate 2 mg 07/06/23 20:56 Morphine Sulfate 2 Mg/Ml Vial IV-PUSH Q4H PRN Pain Scale 8 - 10 Morphine Sulfate 4 mg 07/07/23 11:01 Morphine Sulfate 4 Mg/Ml Cartridge IV-PUSH Q20M PRN Chest Pain Naloxone HCl 0.1 mg 07/06/23 20:56 Naloxone Hcl 0.4 Mg/Ml Vial IV-PUSH 07/05/24 20:55 Q2M PRN Opioid Reversal Nitroglycerin 0.4 mg 07/07/23 11:01 Nitroglycerin 0.4 Mg Tab.Subl SUBLINGUAL 07/06/24 11:00 Q5M PRN Chest Pain Non-Formulary Medication 20 mg 07/07/23 09:00 Dextroamphetamine Sulfate PO 07/06/24 08:59 QAM [facility] Non-Formulary Medication 10 mg 07/07/23 21:00 Dextroamphetamine Sulfate PO 07/06/24 20:59 QPM CATRACHITA Ondansetron HCl 4 mg 07/06/23 20:56 Ondansetron Odt 4 Mg Tab.Rapdis PO 07/05/24 20:55 Q6HR PRN Nausea And Vomiting Ondansetron HCl 4 mg 07/06/23 22:31 07/07/23 03:17 Ondansetron 4 Mg/2 Ml Vial IV-PUSH 07/05/24 22:30 4 mg Q6H PRN Administration Nausea And Vomiting Pantoprazole Sodium 40 mg 07/06/23 22:30 07/07/23 09:00 Pantoprazole 40 Mg Tablet.Dr PO 07/05/24 22:29 40 mg BID CATRACHITA Administration Potassium Chloride 40 meq 07/07/23 02:44 Potassium Chloride Er 20 Meq Tab.Er.Prt PO STAT PRN Hypokalemia Sodium Chloride 0 ml 07/06/23 20:56 Sodium Chloride 0.9 % 10 Ml Syringe IV-PUSH 07/05/24 20:55 PRN PRN Flush Spironolactone 12.5 mg 07/08/23 09:00 Spironolactone 12.5 Mg Tablet PO 07/07/24 08:59 DAILY CATRACHITA Tramadol HCl 50 mg 07/07/23 11:01 Tramadol 50 Mg Tablet PO 01/03/24 11:00 Q6H PRN Moderate Pain Triamcinolone Acetonide 1 applic 07/06/23 22:31 Triamcinolone 0.1% Cream 15 Gm Tube TOPICAL 07/05/24 22:30 QID PRN Irritation Triamcinolone Acetonide 1 applic 07/07/23 11:01 Triamcinolone 0.1% Cream 15 Gm Tube TOPICAL 07/06/24 11:00 QID PRN Irritation A&P - Hospitalist Assessment/Plan (1) NSTEMI (non-ST elevated myocardial infarction): Plan: ? Continue management per cardiology ? Continue aspirin, Plavix, statin, enalapril and metoprolol ? Status post left heart cath today, findings are consistent with Takotsubo, please see invasive cardiac report and cardiac consultation for further details ? Echocardiogram also consistent with Takotsubo (2) Chest pain: (3) Cardiac murmur: (4) Anxiety: Plan: ? Holding alprazolam after event last night (5) GERD (gastroesophageal reflux disease): Plan: Continue omeprazole as ordered (6) Asthma: Plan: Continue albuterol as needed and Trelegy daily (7) Hypothyroidism: Plan: Continue levothyroxine Plan ? DVT prophylaxis addressed ? Cardiac diet ? Full code Documented By: Christophe Stockton DO 07/07/23 1302 Signed By: <Electronically signed by Christophe Stockton DO> 07/07/23 1308 [facility] Work Phone: 1(622) 631-853412-08-2023 Progress note Author Sherman Santiago [facility] July 07, 2023 11:09am Note Date/Time July 07, 2023 1 1:09am [facility] [address] [place] [address] Cardiology Progress Note Signed Patient: Talya Bahena MR#: [id number] : 1975 Acct:[id number] Age/Sex: 48 / F Adm Date: 3 Loc: Room: [address] [place] [address] Type: ADM IN Attending Dr: Christophe Stockton DO Copies to: ~ Date of Service: 07/07/2023 Subjective Principal diagnosis: Non-ST elevation myocardial infarction/Takotsubo cardiomyopathy Interval history: Cardiac catheterization revealed widely patent stent in the LAD with pinched moderate-sized diagonal at the ostium causing 90% stenosis but with brisk filling during cardiac catheterization. Other coronaries were normal. The echocardiogram demonstrated a picture consistent with 2 conditions. Patient hasclassical IHSS with 50 mm of resting gradient in the LVOT area associated with systolic anterior motion of the mitral valve [EARL]. Patient has apical ballooning consistent with Takotsubo cardiomyopathy and ejection fraction that is reduced down to 35-40%. The ascending aorta is mildly dilated 4.1 cm. The patient will be switch to Plavix and continue baby aspirin, continue high intensity statin and initiate therapy with small dose of WALDEMAR inhibitor and beta-gigi. Spironolactone will be added as well. Patient will be kept overnight and if stable discharge home tomorrow. No nitroglycerin should be administered Exam Physical Exam Vital Signs: Temp Pulse Resp BP Pulse Ox O2 Del Method O2 Flow Rate 97.9 F 88 18 84/53 L 97 Room Air 2 07/07/23 04:00 07/07/23 08:25 07/07/23 08:25 07/07/23 06:00 07/07/23 06:00 07/07/23 08:00 07/07/23 06:00 Const General: cooperative, comfortable and no acute distress Nutritional Appearance: obese Orientation: alert, awake and oriented x3 HEENT Head: normal to inspection, normocephalic and atraumatic Ears: hearing grossly normal bilaterally Nose: external nose normal Face and sinus: normal facial exam Eyes Conjunctivae: conjunctivae normal Pupils: PERRL Neck Neck: normal visual inspection, no lymphadenopathy, trachea midline and supple Neck mass: No Thyroid: thyroid normal Carotids: normal carotid upstroke Resp Effort & Inspection: normal respiratory effort Auscultation: clear to auscultation bilaterally Cardio Jugular venous pressure: no JVD Palpation: normal PMI Rate: regular rate Rhythm: regular rhythm Heart Sounds: S1 normal and S2 normal GI Inspection: normal to inspection Palpation: soft and no hepatosplenomegaly Auscultation: normal bowel sounds Extrem General: no clubbing, cyanosis or edema Objective Labs 07/07/23 04:42 07/07/23 04:42 Labs: Laboratory Results - last 24 hr 07/06/23 07/06/23 07/07/23 21:45 21:45 04:42 Corrected WBC Uncorrected WBC Count RBC Hgb Hct MCV MCH MCHC RDW Plt Count MPV Neut % (Auto) Lymph % (Auto) Cotton % (Auto) Eos % (Auto) Baso % (Auto) Nucleat RBC Rel Count Neut # (Auto) Lymph # (Auto) Cotton # (Auto) Eos # (Auto) Baso # (Auto) PT 11.7 INR 1.0 APTT 39.1 H PHA Creatinine Clear Sodium Potassium Chloride Carbon Dioxide Anion Gap BUN Creatinine Est GFR (CKD-EPI) Glucose Calcium Troponin I High Sens 1352.7 H* 635.6 H* Triglycerides Cholesterol LDL Cholesterol, Calc VLDL Cholesterol HDL Cholesterol Cholesterol/HDL Ratio 07/07/23 07/07/23 07/07/23 04:42 04:42 04:42 Corrected WBC 11.8 H Uncorrected WBC Count 11.8 H RBC 4.42 Hgb 12.2 Hct 37.1 MCV 83.9 MCH 27.6 MCHC 32.9 RDW 14.9 Plt Count 355 MPV 8.8 Neut % (Auto) 64.2 Lymph % (Auto) 28.8 Cotton % (Auto) 5.8 Eos % (Auto) 0.9 Baso % (Auto) 0.3 Nucleat RBC Rel Count 0.1 Neut # (Auto) 7.6 Lymph # (Auto) 3.4 Cotton # (Auto) 0.7 Eos # (Auto) 0.1 Baso # (Auto) 0.0 PT INR APTT 61.5 H PHA Creatinine Clear 134.29 Sodium 140 Potassium 4.0 Chloride 108 H Carbon Dioxide 22.9 Anion Gap 13.1 BUN 11 Creatinine 0.56 L Est GFR (CKD-EPI) > 60.0 Glucose 109 H Calcium 9.5 Troponin I High Sens Triglycerides 136 Cholesterol 183 LDL Cholesterol, Calc 103 H VLDL Cholesterol 27 HDL Cholesterol 53 Cholesterol/HDL Ratio 3.5 A&P - Cardiology (1) NSTEMI (non-ST elevated myocardial infarction): Assessment/Problem Details: This is now is clear to be caused by Takotsubo cardiomyopathy with patent stent in the LAD Code(s): I21.4 - Non-ST elevation (NSTEMI) myocardial infarction Status: Acute Plan: Aspirin/Plavix, high intensity statin (2) Stented coronary artery: Assessment/Problem Details: Involving anterior descending artery November 2021 in [place], the LAD stent is widely patent with tight stenosis of a moderate-sized diagonal which appears to have been jailed by the stent where it originates from Code(s): Z95.5 - Presence of coronary angioplasty implant and graft Status: Acute Plan: Continue antiplatelet therapy and high intensity statin (3) Severe left ventricular systolic dysfunction: Assessment/Problem Details: Clearly caused by stress cardiomyopathy Code(s): I51.9 - Heart disease, unspecified Status: Acute Plan: Beta-blockers/WALDEMAR inhibitor/spironolactone (4) Dyslipidemia: Code(s): E78.5 - Hyperlipidemia, unspecified Status: Acute Plan: Continue high intensity statin (5) IHSS (idiopathic hypertrophic subaortic stenosis): Assessment/Problem Details: Classical features on echocardiogram Code(s): I42.1 - Obstructive hypertrophic cardiomyopathy Status: Acute Plan: Beta-blockers, avoid hypovolemia and aggressive vasodilatation Documented By: Sherman Santiago MD, [facility] 3 1105 Signed By: <Electronically signed by MD ANGELINA Santiago> 07/07/23 1109 [facility] Work Phone: [phone]) [phone] Consult note Author Sherman Santiago [facility] July 07, 2023 9:38am Note Date/Time July 07, 2023 9 :38am [facility] [address] [place] [address] Cardiology Consult Note Signed Patient: Talya Bahena MR#: [id number] : 1975 Acct:[id number] Age/Sex: 48 / F Adm Date: 3 Loc: Room: [address] [place] [address] Type: ADM IN Attending Dr: Christophe Stockton DO Copies to: Sherman Santiago MD, [facility] MD Christophe Miranda, DO~ Cardiology HPI History of Present Illness Consult Date: 07/07/23 Reason for Consult: Non-ST elevation myocardial infarction HPI: Ms. Bahena is a 48 year old female who is being seen at request of the hospitalist for assessment of the problems noted above. The patient has historyof stenting of the LAD in November 2021. She currently follows with cardiology from [facility]. She started having symptoms of chest pain 48 hours ago at rest with palpitations. She presented to the emergency department at [facility] yesterday afternoon for chest pain that has not resolved and her troponin was elevated, EKG showed no acute changes. The troponin at [place] was less than 300 pg/mL. She was transferred here after I had a conversation with the ER physicians and was placed on Brilinta loading dose followed by 90 mg twice daily. Her troponin has peaked just over 1000 pg/mL after arrival here. She had more chest pain yesterday evening and was given sublingual nitroglycerin twice which led to severe reaction of unresponsiveness but with no loss of pulse. Apparently it was hypotensive event. CODE BLUE was called but no resuscitation was needed and the patient came out on her own. Did not have any arrhythmias. This morning she is feeling well, her echocardiogram demonstrated a picture suggestive of Takotsubo cardiomyopathy. She appears to have gradient in the LVOT area with no valve disease which could be caused by hyperdynamic basal contraction of the left ventricle in the context of stress cardiomyopathy. This need to be proven by cardiac catheterization that she is scheduled to havein the next half hour. Patient has no allergy to contrast. I reviewed her catheterization report from November 2021 which revealed 80% mid LAD stenosis requiring stenting, the left main, left circumflex and right coronary arteries have no significant disease. Patient does not have many risk factor for CAD. She is nondiabetic non-smoker nonhypertensive and has only mild hyperlipidemia. 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 She follows with [facility]. She lives with her and has some family support. She denies any orthopnea PND lower extremity edema and denies any recent falls or infectious illnesses and has had no bleeding complications. She had ecchymosis of significant amount when she was taken the Effient after the angioplasty last year. She stopped taking it after 9 months of therapy. Review of Systems Review of Systems Review of systems: All other review of system were unremarkable. [facility] Medical History (Updated 07/07/23 @ 09:36 by Sherman Santiago MD) Anxiety Asthma Bipolar disorder Colostomy present Depression Fibromyalgia Frequent PVCs Gastroparesis GERD (gastroesophageal reflux disease) History of placement of stent in LAD coronary artery Hypothyroidism Surgical History (Updated 07/07/23 @ 09:36 by Sherman Santiago MD) H/O hernia repair History of bowel resection Hx of cardiac cath 2021- stent to LAD Family History (Updated 07/06/23 @ 21:24 by Vangie Gonzalez APRN) Father Colon cancer Diabetes Brother Diabetes Social History Smoking Status: Former smoker Tobacco Type: cigarettes Substance Use Type: Alcohol (rarely) Meds Medications and Allergies Allergies adhesive tape Adverse Reaction (Verified 07/06/23 20:53) Rash Home Medications alprazolam 1 mg tablet 1 mg PO HS 07/06/23 [History Confirmed 07/06/23] amitriptyline 25 mg tablet 12.5 mg PO HS 07/06/23 [History Confirmed 07/06/23] ascorbic acid (vitamin C) 1,000 mg tablet (Vitamin C) 1,000 mg PO DAILY 07/06/23[History Confirmed 07/06/23] aspirin 81 mg tablet,delayed release 81 mg PO DAILY 07/06/23 [History Confirmed 07/06/23] atorvastatin 80 mg tablet 80 mg PO DAILY 07/06/23 [History Confirmed 07/06/23] brimonidine 0.2 % eye drops 1 drp Eye-Both BID 07/06/23 [History Confirmed 07/06/23] dextroamphetamine sulfate 10 mg tablet 10 mg PO QPM 07/06/23 [History Confirmed 07/06/23] dextroamphetamine sulfate 10 mg tablet 20 mg PO QAM 07/06/23 [History Confirmed 07/06/23] duloxetine 60 mg capsule,delayed release 60 mg PO BID 07/06/23 [History Confirmed 07/06/23] fluticasone fur. 200 mcg-umeclid 62.5 mcg-vilant 25 mcg inhalat.powder (Trelegy Ellipta) 1 inh inhalation DAILY 07/06/23 [History Confirmed 07/06/23] fluticasone propionate 50 mcg/actuation nasal spray,suspension 1 spray intranasal BID 07/06/23 [History Confirmed 07/06/23] lamotrigine 200 mg tablet 200 mg PO BID 07/06/23 [History Confirmed 07/06/23] levothyroxine 150 mcg tablet 150 mcg PO QAM 07/06/23 [History Confirmed 07/06/23] loratadine 10 mg tablet (Claritin) 10 mg PO DAILY 07/06/23 [History Confirmed 07/06/23] methocarbamol 500 mg tablet 500 mg PO Q8H PRN Muscle Spasm 07/06/23 [History Confirmed 07/06/23] omeprazole 40 mg capsule,delayed release 40 mg PO BID 07/06/23 [History Confirmed 07/06/23] ondansetron HCl 8 mg tablet 8 mg PO Q6H PRN Nausea 07/06/23 [History Confirmed 07/06/23] verapamil 180 mg 24 hr capsule,extended release 360 mg PO QAM 07/06/23 [History Confirmed 07/06/23] Exam Physical Exam Vital Signs: Temp Pulse Resp BP Pulse Ox O2 Del Method O2 Flow Rate 97.9 F 88 18 84/53 L 97 Nasal Cannula 2 07/07/23 04:00 07/07/23 08:25 07/07/23 08:25 07/07/23 06:00 07/07/23 06:00 07/07/23 06:00 07/07/23 06:00 Const General: cooperative, comfortable and no acute distress Nutritional Appearance: obese Orientation: alert, awake and oriented x3 HEENT Head: normal to inspection, normocephalic and atraumatic Ears: hearing grossly normal bilaterally Nose: external nose normal Face and sinus: normal facial exam Eyes Conjunctivae: conjunctivae normal Pupils: PERRL Neck Neck: normal visual inspection, no lymphadenopathy, trachea midline and supple Neck mass: No Thyroid: thyroid normal Carotids: normal carotid upstroke Resp Effort & Inspection: normal respiratory effort Auscultation: clear to auscultation bilaterally Cardio Jugular venous pressure: no JVD Palpation: normal PMI Rate: regular rate Rhythm: regular rhythm Heart Sounds: S1 normal and S2 normal GI Inspection: normal to inspection Palpation: soft and no hepatosplenomegaly Auscultation: normal bowel sounds Extrem General: no clubbing, cyanosis or edema Results Labs 07/07/23 04:42 07/07/23 04:42 Lab results: Lipids 07/07/23 Range/Units 04:42 Triglycerides 136 (0-149) mg/dL Cholesterol 183 (140-200) mg/dL HDL Cholesterol 53 (23-92) mg/dL Cholesterol/HDL Ratio 3.5 (<5.0) CBC 07/07/23 Range/Units 04:42 RBC 4.42 (3.60-5.00) X10E6/uL Hgb 12.2 (11.8-15.4) g/dL Hct 37.1 (34.0-46.4) % Plt Count 355 (150-450) x10E3/uL Neut # (Auto) 7.6 (1.8-7.7) x10E3/uL Lymph # (Auto) 3.4 (1.00-4.8) x10E3/uL Cotton # (Auto) 0.7 (0.0-0.8) x10E3/uL Eos # (Auto) 0.1 (0.0-0.45) x10E3/uL Baso # (Auto) 0.0 (0.0-0.2) x10E3/uL Comprehensive Metabolic Panel 07/07/23 Range/Units 04:42 Sodium 140 (136-145) mmol/L Potassium 4.0 (3.5-5.1) mmol/L Chloride 108 H (98-107) mmol/L Carbon Dioxide 22.9 (21.0-31.0) mmol/L BUN 11 (7-25) mg/dL Creatinine 0.56 L (0.60-1.20) mg/dL Glucose 109 H (70-100) mg/dL Calcium 9.5 (8.6-10.3) mg/dL Intake and Output 07/06/23 07/07/23 07/07/23 23:59 07:59 15:59 Other: # Unmeasured Voids 2 # Bowel Movements 2 Weight 88.2 kg 88 kg Date of Last Bowel Movement 07/06/23 07/06/23 Patient Weight 07/07/23 23:59 Weight 88 kg Lab 07/06/23 07/07/23 21:45 04:42 PT 11.7 INR 1.0 APTT 39.1 H 61.5 H A&P - Cardiology (1) NSTEMI (non-ST elevated myocardial infarction): Assessment/Problem Details: The amount of troponin rise is not consistent with the amount of myocardium thatis dysfunctional based on the echocardiogram. The patient had previous PCI of the LAD where the wall motion abnormalities are noted on the echocardiogram. I will not be surprised if this TURNS out to be Takotsubo cardiomyopathy however this has to be confirmed by cardiac catheterization Plan: Cardiac catheterization RAUL Code(s): I21.4 - Non-ST elevation (NSTEMI) myocardial infarction (2) Stented coronary artery: Assessment/Problem Details: Involving anterior descending artery November 2021 in [place] Plan: Cardiac catheterization is scheduled for today Code(s): Z95.5 - Presence of coronary angioplasty implant and graft (3) Severe left ventricular systolic dysfunction: Assessment/Problem Details: Could be due to occluded stent in the LAD however stress cardiomyopathy cannot be excluded Plan: Cardiac catheterization today. Will decide on medical therapy after the cath Code(s): I51.9 - Heart disease, unspecified (4) Dyslipidemia: Plan: Continue high intensity statin Code(s): E78.5 - Hyperlipidemia, unspecified Documented By: Sherman Santiago MD, [facility] 3 [id number] Signed By: <Electronically signed by [facility] Sherman Santiago> 07/07/23 0938 [facility] Work Phone: 1(224) 455-847812-08-2023 Progress note Author Jayden Joe [facility] July 06, 2023 11:50pm Note Date/Time July 06, 2023 1 1:47pm [facility] [address] [place] [address] Event Note Signed with Addenda Patient: Talya Bahena MR#: [id number] : 1975 Acct:[id number] Age/Sex: 48 / F Adm Date: 3 Loc: Room: [address] [place] [address] Type: ADM IN Attending Dr: Jayden Joe MD Copies to: MD Shaikh Enoch Nunez MD~ ADDENDUM1 In correction to below, patient did receive SL NG and Xanax at 2248 and then another dose of SL NG at 2307 before CODE was called. Addendum Documented By: Jayden Joe MD 07/06/232349 Addendum Signed By: <Electronically signed by Jayden Joe MD> 07/06/232349 Event Date & Type DATE OF EVENT: 07/06/23 TIME OF EVENT: 23:13 CRITICAL CARE TIME: 25 EVENT TYPE: MET PROCEDURES PERFORMED DURING EVENT: None Event Details Ms. Bahena is a 48yo F with PMH of CAD status post stent, bipolar disorder, fibromyalgia who presented from [facility] with NSTEMI. Patient had been having intermittent chest pain complaints since arrival here. She has been started on IV heparin continuous infusion. Her repeat troponin at 21:45 was elevated at 1352, up from 280. Patient was intermittently complaining of chest pain and at 2248 received a sublingual nitroglycerin along with her Xanax as needed. Subsequently, patient became unresponsive, this lasted for a few seconds. She then awoke on her own. HOLLY MCCORMICK was originally called, but this more likely constituted a MET. She did not receive any chest compressions. By the time of my assessment, patient was awake and answering questions appropriately. Blood pressure remained low, but MAP is well above 65. She was breathing comfortably and lungs were clear and heart was regular. No other major physical exam abnormalities. On monitor, patient remained in normal sinusrhythm throughout this event. Repeat EKG demonstrated no evidence of ST elevation. There were some nonspecific T wave inversions and V1 through V3 and possible ST depression in the inferior leads. Case was discussed between myselfand on-call polisher sand due to this event. Given no ST elevations present on EKG, will maintain n.p.o. after midnight and plan for cardiac cath tomorrow. We will monitor closely in ICU overnight. Documented By: Jayden Joe MD 3 [id number] Signed By: <Electronically signed by Jayden Joe MD> 07/06/23 7264 [facility] Work Phone: 1(956) 789-383112-08-2023 History and physical note Author Jayden Joe [facility] July 06, 2023 11:28pm Note Date/Time July 06, 2023 8 :51pm [facility] [address] [place] [address] Hospitalist H&P Signed Patient: Tayla Bahena MR#: [id number] : 1975 Acct:[id number] Age/Sex: 48 / F Adm Date: 3 Loc: 4P Room: 7I5254-7 Type: ADM IN Attending Dr: Jayden Joe MD Copies to: MD Vangie Nunez APRN Shaikh Fawwad, MD~ HPI DATE OF EXAMINATION: 07/06/23 CHIEF COMPLAINT: chest pain, fatigue, nausea, dizziness HISTORY OF PRESENT ILLNESS: Ms. Bahena is a 48-year-old female with a PMH of PA, heart cath with 1 stent placed LAD, bipolar; fibromyalgia, hypothyroidism, anxiety, asthma, GERD presented to the [facility] for complaints of chest pain, fatigue. Patient seen and examined at bedside upon transfer. Patient states that last night she had developed chest pain that felt like a band squeezing around her chest, dizziness, nausea, sweating and chills. She reports that the chest pain is just gotten worse all day, currently rates the pain 4 out of 10. She denies aggravating or relieving factors. She states she had a mammogram last year and had a heart cath with a stent placed. She is a former smoker, drinks alcohol rarely. Patient arrived to the [facility] with complaints of feeling weak and tired that started 1 week ago. Chest x-ray was performed which was negative foracute process. EKG sinus rhythm, no ST changes noted. CBC with white blood cell count of 11.2, H&H 12.6/39.2, platelets 430. D-dimer was drawn slightly elevated at 0.67. CMP is unremarkable. Troponin 278.6. Heparin bolus was given and 4000 units and a drip was started at 850 units/h. Case was discussed with cardiology here who accepted the patient as a consult. [facility] was [facility] as inpatient under the care of the hospitalist team for further evaluation and treatment. Review of Systems Review of Systems Review of systems: A 10 point review of systems was obtained, negative unless noted in the HPI or below. [facility] Medical History (Updated 07/06/23 @ 21:30 by Vangie Gonzalez APRN) Anxiety Asthma Bipolar disorder Colostomy present Depression Fibromyalgia Frequent PVCs Gastroparesis GERD (gastroesophageal reflux disease) History of placement of stent in LAD coronary artery Hypothyroidism Surgical History (Updated 07/06/23 @ 21:24 by Vangie Gonzalez APRN) H/O hernia repair History of bowel resection Hx of cardiac cath 2021- one stent to LAD Family History (Updated 07/06/23 @ 21:24 by Vangie Gonzalez APRN) Father Colon cancer Diabetes Brother Diabetes Social History Smoking Status: Former smoker Substance Use Type: Alcohol (rarely) Meds Medications and Allergies Allergies adhesive tape Adverse Reaction (Verified 07/06/23 20:53) Rash Home Medications alprazolam 1 mg tablet 1 mg PO HS 07/06/23 [History Confirmed 07/06/23] amitriptyline 25 mg tablet 12.5 mg PO HS 07/06/23 [History Confirmed 07/06/23] ascorbic acid (vitamin C) 1,000 mg tablet (Vitamin C) 1,000 mg PO DAILY 07/06/23[History Confirmed 07/06/23] aspirin 81 mg tablet,delayed release 81 mg PO DAILY 07/06/23 [History Confirmed 07/06/23] atorvastatin 80 mg tablet 80 mg PO DAILY 07/06/23 [History Confirmed 07/06/23] brimonidine 0.2 % eye drops 1 drp Eye-Both BID 07/06/23 [History Confirmed 07/06/23] dextroamphetamine sulfate 10 mg tablet 10 mg PO QPM 07/06/23 [History Confirmed 07/06/23] dextroamphetamine sulfate 10 mg tablet 20 mg PO QAM 07/06/23 [History Confirmed 07/06/23] duloxetine 60 mg capsule,delayed release 60 mg PO BID 07/06/23 [History Confirmed 07/06/23] fluticasone fur. 200 mcg-umeclid 62.5 mcg-vilant 25 mcg inhalat.powder (Trelegy Ellipta) 1 inh inhalation DAILY 07/06/23 [History Confirmed 07/06/23] fluticasone propionate 50 mcg/actuation nasal spray,suspension 1 spray intranasal BID 07/06/23 [History Confirmed 07/06/23] lamotrigine 200 mg tablet 200 mg PO BID 07/06/23 [History Confirmed 07/06/23] levothyroxine 150 mcg tablet 150 mcg PO QAM 07/06/23 [History Confirmed 07/06/23] loratadine 10 mg tablet (Claritin) 10 mg PO DAILY 07/06/23 [History Confirmed 07/06/23] methocarbamol 500 mg tablet 500 mg PO Q8H PRN Muscle Spasm 07/06/23 [History Confirmed 07/06/23] omeprazole 40 mg capsule,delayed release 40 mg PO BID 07/06/23 [History Confirmed 07/06/23] ondansetron HCl 8 mg tablet 8 mg PO Q6H PRN Nausea 07/06/23 [History Confirmed 07/06/23] verapamil 180 mg 24 hr capsule,extended release 360 mg PO QAM 07/06/23 [History Confirmed 07/06/23] Exam Physical Exam Vital Signs: Temp Pulse Resp BP Pulse Ox O2 Del Method 98.8 F 90 17 123/70 96 Room Air 07/06/23 20:32 07/06/23 20:32 07/06/23 20:32 07/06/23 20:32 07/06/23 20:32 07/06/23 20:32 Narrative: CONST- Appears well -developed and well nourished. HEAD - Normocephalic and atraumatic EENT-Sclera nonicteric, conjunctive are non-erythemic, moist oral mucosa, pharynx clear NECK-Supple, no cervical lymphadenopathy CARDIAC-normal rate, regular rhythm, S1 & S2. Murmur PULM-diminished without wheeze or rhonchi, RA, no accessory muscle use or cough noted ABD - Soft. Bowel sounds are normal. No distention. No tenderness, colostomy inplace-stoma red, moist, small amount of stool present in bag EXTREM-no edema BLE calves, nontender SKIN- W/D good turgor MS- MAEX4 spontaneously with equal with equal strength NEURO- A&Ox3 speech clear and tongue midline, equal facial symmetry, no focal motor deficits PSYCH-Mood, affect, and behavior appropriate Assessment & Plan Assessment/Plan (1) NSTEMI (non-ST elevated myocardial infarction): (2) Chest pain: (3) Cardiac murmur: (4) Anxiety: (5) GERD (gastroesophageal reflux disease): (6) Asthma: (7) Hypothyroidism: Plan NSTEMI Chest pain Heart murmur ? Consult cardiology ? Trend troponins ? Stat coags, troponin, EKG ? Continue heparin drip per ACS protocol ? Echo in a.m.?patient states no history of heart murmur ? Troponin, CBC, lipid profile, BMP, EKG in a.m. ? Nitro SL as needed, morphine as needed ? Continue low-dose aspirin daily Chronic conditions: Anxiety?alprazolam as needed Hypothyroidism?continue levothyroxine Asthma?continue Trelegy, albuterol as needed Frequent PVCs?patient takes verapamil Bipolar/depression?continue duloxetine, amitriptyline, lamotrigine GERD?omeprazole DVT PPx-SCDs, heparin drip Diet order-heart healthy, n.p.o. at midnight CODE STATUS-full code Attending attestation: Patient was personally seen by me on the day of encounter. I reviewed her history and performed galeano elements of exam and formulated the plan of care and confirmed the nurse practitioner's note above. Plan of care reflects my direct input. IP vs OBS Justification Based on differential dx, clinical care plan, and risk of adverse events, if untreated, in my clinical judgement this patient requires an acute care setting as: INPATIENT because of an expectation of an over 2 midnight stay. Estimated length of stay (# of days): 3 Documented By: Vangie Gonzalez APRN 07/06/232050 Signed By: <Electronically signed by BRITTANI Gonzalez> 07/06/232137 <Electronically signed by Jayden Joe MD> 07/06/23 2322 [facility] Work Phone: 1(171) 429-949511-29-2023 Miscellaneous Notes* Telephone Encounter - Melania Freeman - 06/28/2023 4:03 PM EST Patient requesting refills as follows: Requested Prescriptions Pending Prescriptions Disp Refills Dextroamphetamine Sulfate 10 mg tablet 90 tablet 0 Sig: Take 1 tablet by mouth three times a day for 30 days. Please review and advise. Melania Freeman [facility] History and physical note * Carlyn Mosquera MD - 06/07/2023 11:00 AM EST History Of Present Illness Talya Bahena is a 48 y.o. female with a complex surgical history who presents with frequent episodesof dysphagia and spitting up. She underwent a laparoscopic hiatal hernia repair and fundoplication which she states has recurred as well as associated with vagal injury leading to gastroparesis. Approximately 4 years ago she underwent gastric peroral pyloromyotomy with improvement in her nausea and vomiting symptoms. She denies abdominal pain or vomiting at this time but does report chest discomfort and pain which she states mimics her cardiac disease. She is approximate 1 year status post a myocardial infarction. Patient is also status post a sigmoid loop colostomy in the periumbilical region for chronic pelvic floor disease and chronic constipation. She complains of difficulty with pouching the stoma as well as a parastomal hernia. Patient denies hematemesis, weight loss, nor bright redblood per stoma. She has not had endoscopic, manometric, nor objective pH monitoring. She states that she takes Prilosec twice daily. She has no recent imaging although says that she was told that the re was a small recurrent hernia. Past Medical History Past Medical History: Diagnosis Date Chronic constipation GERD (gastroesophageal reflux disease) Irritable bowel syndrome Surgical History Past Surgical History: Procedure Laterality Date COLOSTOMY Social History She reports that she has quit smoking. Her smoking use included cigarettes. She has never used smokeless tobacco. She reports that she does not currently use alcohol. She reports that she does not use drugs. Family History No family history on file. Allergies Adhesive tape-silicones Review of Systems Constitutional: Negative. HENT: Negative. Eyes: Negative. Respiratory: Negative. Cardiovascular: Negative. Gastrointestinal: Negative for abdominal distention, abdominal pain, constipation, diarrhea, nauseaand vomiting. Positive per HPI Endocrine: Negative. Genitourinary: Negative. Musculoskeletal: Negative. Skin: Negative. Allergic/Immunologic: Negative. Neurological: Negative. Hematological: Negative. Psychiatric/Behavioral: Negative. Physical Exam Vitals reviewed. Constitutional: Appearance: Normal appearance. She is obese. HENT: Head: Normocephalic and atraumatic. Nose: Nose normal. Eyes: Extraocular Movements: Extraocular movements intact. Pupils: Pupils are equal, round, and reactive to light. Cardiovascular: Rate and Rhythm: Normal rate and regular rhythm. Pulmonary: Effort: Pulmonary effort is normal. Abdominal: General: Abdomen is flat. There is no distension. Palpations: Abdomen is soft. There is no mass. Tenderness: There is no abdominal tenderness. Musculoskeletal: General: Normal range of motion. Cervical back: Normal range of motion and neck supple. Skin: General: Skin is warm and dry. Capillary Refill: Capillary refill takes less than 2 seconds. Neurological: General: No focal deficit present. Mental Status: She is alert and oriented to person, place, and time. Psychiatric: Mood and Affect: Mood normal. Behavior: Behavior normal. Thought Content: Thought content normal. Judgment: Judgment normal. Last Recorded Vitals Blood pressure 111/83, pulse 85, resp. rate 16, SpO2 95 %. Relevant Results Assessment/Plan Active Problems: There are no active Hospital Problems. 48 y.o. female with a complex surgical history who presents with frequent episodes of dysphagia andspitting up. She underwent a laparoscopic hiatal hernia repair and fundoplication which she states has recurred as well as associated with vagal injury leading to gastroparesis. Approximately 4 yearsago she underwent gastric peroral pyloromyotomy with improvement in her nausea and vomiting symptoms. She denies abdominal pain or vomiting at this time but does report chest discomfort and pain which she states mimics her cardiac disease. She is approximate 1 year status post a myocardial infarction. Patient is also status post a sigmoid loop colostomy in the periumbilical region for chronic pelvic floor disease and chronic constipation. She complains of difficulty with pouching the stoma as well as a parastomal hernia. Patient denies hematemesis, weight loss, nor bright red blood per stoma.She has not had endoscopic, manometric, nor objective pH monitoring. She states that she takes Prilosec twice daily. She has no recent imaging although says that she was told that there was a small recurrent hernia. -NPO, IVF -Consented -outpatient Carlyn Mosquera MD [facility] Work Phone: 1(482) 970-870511-08-2023 History and physical note* Carlyn Mosquera MD - 06/07/2023 11:00 AM EST History Of Present Illness Talya Bahena is a 48 y.o. female with a complex surgical history who presents with frequent episodesof dysphagia and spitting up. She underwent a laparoscopic hiatal hernia repair and fundoplication which she states has recurred as well as associated with vagal injury leading to gastroparesis. Approximately 4 years ago she underwent gastric peroral pyloromyotomy with improvement in her nausea and vomiting symptoms. She denies abdominal pain or vomiting at this time but does report chest discomfort and pain which she states mimics her cardiac disease. She is approximate 1 year status post a myocardial infarction. Patient is also status post a sigmoid loop colostomy in the periumbilical region for chronic pelvic floor disease and chronic constipation. She complains of difficulty with pouching the stoma as well as a parastomal hernia. Patient denies hematemesis, weight loss, nor bright redblood per stoma. She has not had endoscopic, manometric, nor objective pH monitoring. She states that she takes Prilosec twice daily. She has no recent imaging although says that she was told that the re was a small recurrent hernia. Past Medical History Past Medical History: Diagnosis Date Chronic constipation GERD (gastroesophageal reflux disease) Irritable bowel syndrome Surgical History Past Surgical History: Procedure Laterality Date COLOSTOMY Social History She reports that she has quit smoking. Her smoking use included cigarettes. She has never used smokeless tobacco. She reports that she does not currently use alcohol. She reports that she does not use drugs. Family History No family history on file. Allergies Adhesive tape-silicones Review of Systems Constitutional: Negative. HENT: Negative. Eyes: Negative. Respiratory: Negative. Cardiovascular: Negative. Gastrointestinal: Negative for abdominal distention, abdominal pain, constipation, diarrhea, nauseaand vomiting. Positive per HPI Endocrine: Negative. Genitourinary: Negative. Musculoskeletal: Negative. Skin: Negative. Allergic/Immunologic: Negative. Neurological: Negative. Hematological: Negative. Psychiatric/Behavioral: Negative. Physical Exam Vitals reviewed. Constitutional: Appearance: Normal appearance. She is obese. HENT: Head: Normocephalic and atraumatic. Nose: Nose normal. Eyes: Extraocular Movements: Extraocular movements intact. Pupils: Pupils are equal, round, and reactive to light. Cardiovascular: Rate and Rhythm: Normal rate and regular rhythm. Pulmonary: Effort: Pulmonary effort is normal. Abdominal: General: Abdomen is flat. There is no distension. Palpations: Abdomen is soft. There is no mass. Tenderness: There is no abdominal tenderness. Musculoskeletal: General: Normal range of motion. Cervical back: Normal range of motion and neck supple. Skin: General: Skin is warm and dry. Capillary Refill: Capillary refill takes less than 2 seconds. Neurological: General: No focal deficit present. Mental Status: She is alert and oriented to person, place, and time. Psychiatric: Mood and Affect: Mood normal. Behavior: Behavior normal. Thought Content: Thought content normal. Judgment: Judgment normal. Last Recorded Vitals Blood pressure 111/83, pulse 85, resp. rate 16, SpO2 95 %. Relevant Results Assessment/Plan Active Problems: There are no active Hospital Problems. 48 y.o. female with a complex surgical history who presents with frequent episodes of dysphagia andspitting up. She underwent a laparoscopic hiatal hernia repair and fundoplication which she states has recurred as well as associated with vagal injury leading to gastroparesis. Approximately 4 yearsago she underwent gastric peroral pyloromyotomy with improvement in her nausea and vomiting symptoms. She denies abdominal pain or vomiting at this time but does report chest discomfort and pain which she states mimics her cardiac disease. She is approximate 1 year status post a myocardial infarction. Patient is also status post a sigmoid loop colostomy in the periumbilical region for chronic pelvic floor disease and chronic constipation. She complains of difficulty with pouching the stoma as well as a parastomal hernia. Patient denies hematemesis, weight loss, nor bright red blood per stoma.She has not had endoscopic, manometric, nor objective pH monitoring. She states that she takes Prilosec twice daily. She has no recent imaging although says that she was told that there was a small recurrent hernia. -NPO, IVF -Consented -outpatient Carlyn Mosquera MD [facility] Work Phone: 1(588) 794-821410-24-2023 Miscellaneous Notes* Telephone Encounter - Melania Freeman - 05/23/2023 2:50 PM EDT Patient requesting refills as follows: Requested Prescriptions Pending Prescriptions Disp Refills ALPRAZolam (XANAX) 1 mg tablet Sig: Take 1 tablet by mouth two times a day as needed. Please review and advise. Melania Freeman [facility] History of Present illness Narrative* Arash Freeman MD - 02/15/2023 11:00 AM EDT Images from the original note were not included. PSYC FOLLOW UP - PSYCHIATRIC PROGRESS NOTE CC: Depression, anxiety, CFS HPI: Patient presents for follow-up. Current medications include the following: Dexedrine 10mg TID Cymbalta 60mg twice daily Xanax 1mg twice daily (PRN) Vraylar 3mg every other day. Lamictal 200mg twice daily Stopped taking the Vraylar due to wt gain. Otherwise, taking her medications as Rx'd. No improvement from the Vraylar in any event. Since coming off the Vraylar, I don't feel quite as manic and hopeless, I guess. Probably related to getting back on the Lamictal. Has done well with VPA, but the weight gain was way too much. Had been on [place] in the past, but does not remember why she came off it. It wasn't optimal . Sleeping lousy at night. Would be worse without the Xanax. I'm always tired anyway . Appetite has come down since coming off Vraylar. Now on Nutrasystem. There is no SI, HI, intent or plan. No AVH, delusions or paranoid thinking. Risks and benefits of the medication, including any black box warnings, were discussed with the patient. Interval Progress: worse PATIENT DATA: Generalized Anxiety Disorder Scale (VIVIAN-7) No flowsheet data found.(0-4) minimal anxiety, (5-9) mild anxiety, (10-14) moderate anxiety, (15-21) severe anxiety Patient Health Questionnaire (PHQ-9) No flowsheet data found.(0-4) minimal depression, (5-9) mild depression, (10-14) moderate depression, (15-19) moderately severe depression, (20-27) severe depression PROMIS [employer] [facility] No flowsheet data found. No past medical history on file. No past surgical history on file. Current Outpatient Medications Medication Sig Dispense Refill Dextroamphetamine Sulfate 10 mg tablet Take 1 tablet by mouth three times daily for 30 days. This to replace all previous stimulants as of today. 90 tablet 0 cariprazine (VRAYLAR) 3 mg capsule Take 1 capsule by mouth once daily. 90 capsule 0 ALPRAZolam (XANAX) 1 mg tablet Take 1 tablet by mouth twice daily as needed for anxiety for up to 90 days. 60 tablet 2 DULoxetine (CYMBALTA) 60 mg capsule Take 1 capsule by mouth twice daily. 180 capsule 1 No current facility-administered medications for this visit. ROS: GENERAL: Negative for malaise, significant weight loss and fever. HEENT: No changes in hearing or vision, no nose bleeds or other nasal problems. RESPIRATORY: Negative for cough, wheezing and shortness of breath. CARDIOVASCULAR: Negative for chest pain, leg swelling and palpitations. GI: Negative for abdominal discomfort, blood in stools or black stools. : Negative for dysuria, frequency and incontinence. MUSCULOSKELETAL: Negative for joint pain or swelling, back pain, and muscle pain. SKIN: Negative for lesions, rash, and itching. HEMATOLOGY/LYMPHOLOGY Negative for prolonged bleeding, bruising easily, and swollen nodes. ENDOCRINE: Negative for cold or heat intolerance, polyuria, polydipsia and goiter. NEURO: Negative for headaches, syncope, seizures and paralysis. VITAL SIGNS: There were no vitals filed for this visit. MENTAL STATUS EXAM: CONSTITUTIONAL: Well groomed, Appropriately dressed, Casually dressed ORIENTATION: Person, Place, Time and Situation MEMORY: Recent intact, Remote intact, Immediate intact CONCENTRATION: Normal MOOD: depressed AFFECT: Full and appropriate to topic SPEECH : Clear & distinct LANGUAGE : Normal ASSOCIATIONS: Intact THOUGHT PROCESS : Logical, Coherent, and Rational PROGRESSION : There was no evidence of disturbance in thought perception or progression. FUND OF KNOWLEDGE : Appropriate and Adequate SUICIDE: None HOMICIDE: None DATA REVIEWED: epic DIAGNOSIS: MDD, severe, without psychosis Chronic Fatigue TREATMENT PLAN: Modestly better now that she is back on her Lamictal. She will pursue outpatient ECT, either at [facility] or [place]. The [facility] is also an option, though farther away for her. She will update me over MyChart after she spoken to the program, and then we will schedule her follow-up. 1) Continue Dexedrine 10mg three times daily 2) Continue Cymbalta 60mg twice daily 3) Continue Lamictal 200mg twice daily 4) Continue Xanax 1mg twice daily as needed. 5) Update over [employer] once you have spoken to the ECT programs. And then we will schedule follow-up visit at that time. ADD ON PSYCHOTHERAPY CODE : No SIGNATURE: Arash Freeman MD PATIENT NAME: Talya Bahena DATE: February 15, 2023 [facility] History of Present illness Narrative* Arash Freeman MD - 01/11/2023 10:40 AM EDT Images from the original note were not included. PSYC FOLLOW UP - PSYCHIATRIC PROGRESS NOTE CC: Depression, anxiety, CFS HPI: Patient presents for follow-up. Current medications include the following: Dexedrine 10mg TID Cymbalta 60mg twice daily Xanax 1mg twice daily Vraylar 3mg every other day. Topamax 50mg at bedtime -Worse emotional lability off the Lamictal. Mood seems to follow this to a significant agree. Otherwise taking her medications every day, tolerating well. Sleeping okay and eating okay, continues to be frustrated by the way that she feels. Anxiety is significant and she continues to be profoundly unhappy. However, no safety concerns. Certainly, she would like to go back on her Lamictal. I talked about the risks associated with a more rapid titration, particularly as it concerns the initiation of a potentially life-threatening rash. She voices understanding of this and agrees to proceed. She would like to accelerate the titration schedule, as she is not feeling at all well. There is no SI, HI, intent or plan. No AVH, delusions or paranoid thinking. Risks and benefits of the medication, including any black box warnings, were discussed with the patient. Interval Progress: worse PATIENT DATA: Generalized Anxiety Disorder Scale (VIVIAN-7) No flowsheet data found.(0-4) minimal anxiety, (5-9) mild anxiety, (10-14) moderate anxiety, (15-21) severe anxiety Patient Health Questionnaire (PHQ-9) No flowsheet data found.(0-4) minimal depression, (5-9) mild depression, (10-14) moderate depression, (15-19) moderately severe depression, (20-27) severe depression PROMIS [employer] [facility] No flowsheet data found. No past medical history on file. No past surgical history on file. Current Outpatient Medications Medication Sig Dispense Refill cariprazine (VRAYLAR) 3 mg capsule Take 1 capsule by mouth once daily. 90 capsule 0 topiramate (TOPAMAX) 50 mg tablet Take 1 tablet by mouth twice daily. 180 tablet 0 Dextroamphetamine Sulfate 10 mg tablet Take 1 tablet by mouth three times daily for 30 days. This to replace all previous stimulants as of today. 90 tablet 0 ALPRAZolam (XANAX) 1 mg tablet Take 1 tablet by mouth twice daily as needed for anxiety for up to 90 days. 60 tablet 2 lamoTRIgine (LAMICTAL) 200 mg tablet Take 1 tablet by mouth twice daily. 180 tablet 1 DULoxetine (CYMBALTA) 60 mg capsule Take 1 capsule by mouth twice daily. 180 capsule 1 No current facility-administered medications for this visit. ROS: GENERAL: Negative for malaise, significant weight loss and fever. HEENT: No changes in hearing or vision, no nose bleeds or other nasal problems. RESPIRATORY: Negative for cough, wheezing and shortness of breath. CARDIOVASCULAR: Negative for chest pain, leg swelling and palpitations. GI: Negative for abdominal discomfort, blood in stools or black stools. : Negative for dysuria, frequency and incontinence. MUSCULOSKELETAL: Negative for joint pain or swelling, back pain, and muscle pain. SKIN: Negative for lesions, rash, and itching. HEMATOLOGY/LYMPHOLOGY Negative for prolonged bleeding, bruising easily, and swollen nodes. ENDOCRINE: Negative for cold or heat intolerance, polyuria, polydipsia and goiter. NEURO: Negative for headaches, syncope, seizures and paralysis. VITAL SIGNS: There were no vitals filed for this visit. MENTAL STATUS EXAM: CONSTITUTIONAL: Well groomed, Appropriately dressed, Casually dressed ORIENTATION: Person, Place, Time and Situation MEMORY: Recent intact, Remote intact, Immediate intact CONCENTRATION: Normal MOOD: depressed AFFECT: Full and appropriate to topic SPEECH : Clear & distinct LANGUAGE : Normal ASSOCIATIONS: Intact THOUGHT PROCESS : Logical, Coherent, and Rational PROGRESSION : There was no evidence of disturbance in thought perception or progression. FUND OF KNOWLEDGE : Appropriate and Adequate SUICIDE: None HOMICIDE: None DATA REVIEWED: [facility] DIAGNOSIS: MDD, severe, without psychosis Chronic Fatigue TREATMENT PLAN: We will get her back on Lamictal as she is crying more and is more emotionally labile without it. She is loathe to titrate so slowly. We had a long conversation about the risk of potentially life threatening rash if she moves too quickly. She is aware of this risk and says she will go to the ED if she develops any rash of any kind. She says she has Lamictal at home in small dosages, and does not want any refills at this time for this. 1) Vraylar 3mg every other day 2) Stop Topamax 3) Continue Cymbalta 60mg twice daily 4) Restart Lamictal 25mg daily for one week, then 50mg daily for one week, then 100mg daily for oneweek, then 200mg daily thereafter. This is an accelerated titration scheduled (as you know). 5) Continue Xanax 1mg twice daily as needed. 6) Return to clinic in one month. Call or MyChart sooner as needed. ADD ON PSYCHOTHERAPY CODE : No SIGNATURE: Arash Freeman MD PATIENT NAME: Talya Bahena DATE: January 11, 2023 documented in this encounterMag[facility]05-10-[facility]23 Miscellaneous Notes* Telephone Encounter - Melania Freeman - 12/07/2022 10:29 AM EDT Winnie Washington, [facility] [employer] ([phone]) called on behalf of pt. She stated ptwould prefer to use mailorder pharmacy and requested 90-day prescirptions for duloxetine and lamotrigine be sent to [facility] on [facility]. Patient requesting refills as follows: Requested Prescriptions Pending Prescriptions Disp Refills lamoTRIgine (LAMICTAL) 200 mg tablet 180 tablet 1 Sig: Take 1 tablet by mouth twice daily. DULoxetine (CYMBALTA) 60 mg capsule 180 capsule 1 Sig: Take 1 capsule by mouth twice daily. Please review and advise. Melania Freeman documented in this encounterMag[facility]05-04-[facility]23 History of Present illness Narrative* Arash Freeman MD - 12/01/2022 11:00 AM EDT Images from the original note were not included. PSYC FOLLOW UP - PSYCHIATRIC PROGRESS NOTE CC: Depression, anxiety, CFS This was a virtual visit done with audio and video in the patient's consent. The patient was at home and I was in my office. HPI: Patient presents for third follow-up following initial evaluation. Current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
--- NOTE | 2024-03-29 06:55 | NM_ITS ---
The [address] [address] Patient Name: ABBIE SALCIDO MRN: [id number] date: 1975 Sex: F Assigned Patient Location: [place] Current Patient Location: [place] Accession/Order Number: [id number] Exam Date: 03/29/2024 06:50 Report Date: 03/29/2024 14:10 At the request of: NON-STAFF PHYSICIAN Procedure: AK gastric emptying study NUCLEAR MEDICINE GASTRIC EMPTYING SCAN HISTORY: Dysphagia. COMPARISON: None. TECHNIQUE: The patient ingested a meal of a labeled with 0.9 mCi of technetium-99 sulfur colloid and images were performed of the stomach over 4 hours. Gastric retention was calculated. FINDINGS: At one hour, there was 86% gastric retention. The normal range is 30% to 90%. At two hours, there was 86% gastric retention. The normal range 0% to 60%. At four hours, there was 50% gastric retention. The normal range 0% to 10%. AK/AK gastric emptying study IMPRESSION: Delayed gastric emptying. Electronically authenticated by: CESILIA CANALES Date: 03/29/2024 14:10
== END 2024-03-29 06:48 | disposition home or self-care (01) ==
PROVIDERS: PCP Internal Medicine
DX: R13.19 Other dysphagia (principal)
CPT/HCPCS: 78264; A9541

== ENCOUNTER 2024-04-02 11:31 | Outpatient (OUT) | payer MEDICARE, OTHER, SELFPAY ==
--- NOTE | 2024-04-02 11:34 | MM_ITS ---
Patient Name: ABBIE SALCIDO MR#: [id number] : 1975 Exam Date: 04/02/2024 Ordering Doctor: Shaikh Amy Kendall . RADIOLOGY REPORT PROCEDURE: MM TOMOSYNTHESIS SCREENING BI COMPARISON: MM TOMOSYNTHESIS SCREENING BI, 02/01/2023. MM TOMOSYNTHESIS SCREENING BI, 06/23/2021. MM TOMOSYNTHESIS SCREENING BI, 03/24/2020. MG MAMM SCREEN EBER W CAD, 02/05/2019. INDICATIONS: Screening Calculator Name NCI Breast Cancer Risk Assessment Tool 5 Year Breast Cancer Risk 1.20% Lifetime Breast Cancer Risk 10.60% Personal Breast Cancer No Personal Ovarian Cancer No Treatments None Family Cancers None LOCATION: [facility] BREAST COMPOSITION: The breasts are heterogeneously dense,which may obscure small masses. FINDINGS: DIAGNOSTIC CATEGORY 1--NEGATIVE. RIGHT BREAST: No significant suspicious finding. No significant change has occurred. LEFT BREAST: No significant suspicious finding. No significant change has occurred. RECOMMENDATIONS: ROUTINE MAMMOGRAM AND CLINICAL EVALUATION IN 12 MONTHS. PLEASE NOTE: A NORMAL MAMMOGRAM DOES NOT EXCLUDE THE POSSIBILITY OF BREAST CANCER. A CLINICALLY SUSPICIOUS PALPABLE LUMP SHOULD BE BIOPSIED. Dictated by: Jaison Barber M.D. on 04/05/2024 at 08:18 Approved by: Jaison Barber M.D. on 04/05/2024 at 08:24
--- OUTSIDE RECORDS SUMMARY | 2024-04-02 11:59 | XMS_ITS | CCD ---
Author Organization [facility] Inform ion Partnership [facility] Care Team Providers Care Weight Loss Physician Name Role Phone Unavailable Primary Care Provider Unavailabl e FAWWAD, GUTIERRES H Primary Care Unavailable FAWWAD, GUTIERRES H Attending Unavailable CLIFTON, DR NURY Carpenter Consulting Unavailable FAWWAD, GUTIERRES [...] Provider Unavailable DO Hayley Cordova Other Provider [phone] MD Sherman Santiago Other Provider [phone] MD Rishabh Boykin Other Provider MD Suzan Clifton Other Provider MD Alo Perez Other Provider BRITTANI Doshi Other Provider MD Teri Wynn Other Provider MD Sunshine Forrester Other Provider MD Katelyn Carrillo Other Provider Aurelia [facility] Anh [place] Other Provider MD Jennifer Rodriguez Other Provider [phone] DO Christophe Stockton Attending Provider LUCILLE SOLORZANO Attending Unavailable CRYSTALD, GUTIERRES Referring Unavailable FAWSABAD, [facility] Primary Care Unavailable Enoch COTTO [facility] Primary Care Provider Unavailable Primary Care Provider Unavailhai Kendall MD [facility] Primary Care Provider MD Enoch [facility] Primary Care Provider MD Breezy Kendall Attending Provider Fawadryan, Gutierres Primary Care Unavailable Enoch, Gutierres Attending Unavailable Fadanield, Gutierres Admitting Unavailable Fawsabad, Gutierres Primary Care Unavailable Enoch, Gutierres Attending Unavailable Enoch, Gutierres Admitting Unavailable Fasabad, [facility] Primary Care Unavailable Christophe Stockton Attending Unavailable [...] AUBREY-GOLBIG, SYMONE Goldstein Referring Unava ilable FAWWAD, [facility] Primary Care Unavailable [facility] Goldstein Referring Unava ilable FAWWAD, [facility] Primary Care Unavailable CJ, SYMONE Goldstein Attending Unava ilable ANDREAS ANDRADE Attending Unavailable FAWWAD, [facility] Primary Care Unavailable ANDREAS ANDRADE Attending Unavailable FAWWAD, [facility] Primary Care Unavailable FAWWAD, [facility] Primary Care Unavailable ANDREAS ANDRADE Attending Unavailable ANDREAS ANDRADE Referring Unavailable FAWWAD, [facility] Primary Care Unavailable ANDREAS ANDRADE Referring Unavailable FAWWAD, [facility] Primary Care Unavailable ANDREAS ANDRADE Attending Unavailable AL KHADEM, CARLYN Referring Unavailable FAWWAD, [facility] Primary Care Unavailable KHAITAN, JUJU Attending Unavailable KHAITAN, JUJU Attending Unavailable ANDREAS ANDRADE Referring Unavailable AL KHADEM, CARLYN Referring Unavailable FAULXYESY Attending Unavailable KHAITAN, JUJU Referring Unavailable FAULXYESY Attending Unavailable Allergies Allergy Classification Reported Allergen(s) Allergy Type Date of Onset Reaction(s) Facility (3 sources) Adhesive agent; Translations: [ADHESIVE] Drug allergy (disorder) 9 infection [facility] Repository (1 source) Gadolinium Drug Allergy The [facility] Repository (2 sources) Morphine; Translations: [MORPHINE] Drug Allergy 5 [facility] Repository (3 sources) Adhesive Tape TAPE; Translations: [Adhesive Tape TAPE] Allergy to drug (finding) GP-Zgdazri-Hmw well 2100 Work Phone: (3 sources) Adhesive Tape; Translations: [adhesive tape] Propensity to adverse reactions 3 [facility] (3 sources) Codeine; Translations: [CODEINE] Drug Allergy 5 [facility] Repository (1 source) GADOLINIUM-CONT AINING CONTRAST MEDIA; Translations: [GADOLINIUM-CON TAINING CONTRAST MEDIA] Propensity to adverse reactions to drug (disorder) 5 [facility] Repository (2 sources) Iodine Drug Allergy 7 [facility] (2 sources) Morphine Drug Allergy 5 [facility] (2 sources) Gadolinium Derivatives Drug Intolerance 5 [facility] (2 sources) Wound Dressing Adhesive Drug Allergy 9 Unknown, Rash [facility] (1 source) Adhesive agent Drug allergy (disorder) 2 [facility] Repository (3 sources) ADHESIVE TAPE-SILICONES; Translations: [ADHESIVE TAPE-SILICONES] Propensity to adverse reactions to drug (disorder) 3 [facility] 2 Repository Medications Current Medications Medication [...] 0 Refills: 0 Ordered: 02-Mar-2023 DO Active [id number] actuat albuterol 0.09 mg/actuat metered dose [...] on above: Take 1 capsule by mo [facility] once daily. clopidogrel 75 mg oral tablet [...] on above: Take 1 capsule by mo [facility] once daily. Take 1 capsule by mo [facility] twice daily. Take 1 capsule by mo [...] bedtime. 0 08/18/2022 08/31/2023 Discontinued (Therapy completed) Clyhxibxohu-Nrmiqvuiw-Xjrndl er (2 sources) Start: 07-06-2023 Tgmgbafegua-Qqnsgetul-Uunbux er (Trelegy Ellipta) 200-62.5-25 mcg Blister With [...] Ordered: 02-Mar-2023 DO Active polyethylene glycol 3350 75697 mg powder for oral solution (1 source) [...] disease (7 sources) Atherosclerotic heart disease of [place] coronary artery without angina pectoris; Translations: [Arteriosclerotic [...] of bowel preparation was evaluated using the Harmony Bowel Preparation Scale with scores of: right [...] Time Specimens No specimens collected Procedure Location [facility] [address] [facility] [id number] Referring Provider Carlyn Mosquera MD Procedure Provider Andreas Andrade MD [facility] Cal 02-28-2024 Esophagogastroduodenosco py Table formatting from [...] Andreas Andrade MD 02/28/2024 1241 Procedure Location [facility]3] [address] [address] [facility] [id number] Referring Provider Andreas Andrade MD Procedure Provider Andreas Andrade MD Normal [facility] Surgical pathology studyon 0 02-28-2024 Surgical pathology study Pathology repor t.total SEE COMMENT Surgical Pathology Case: [id number] Authorizing Provider: Andreas Andrade MD Collected: 02/28/2024 1241 Ordering Location: [facility] Received: 02/28/2024 2157 Center Pathologist: Alis [...] is submitted in toto in one cassette. [facility] AP ASR DISCLAIMER One or more of the reagents used to perform assays on this specimen MAY have contained components considered to be analyte specific reagents (ASR's). ASR's have not been cleared or approved by the U.S. Food and Drug Administration. These assays were developed and their performance characteristics determined by the Department of Pathology at [facility]. The FDA does not require this test [...] and negative controls which stained appropriately. Normal [facility] XR GI TRANSIT COLONIC STUDY KUBon 02-23-2024 XR GI TRANSIT COLONIC STUDY KUB Interpreted By: Obey Santana, STUDY: XR GI TRANSIT COLONIC STUDY KUB; 02/23/2024 12:16 pm INDICATION: Signs/Symptoms:Sitz marker #3. COMPARISON: 02/21/2024 ACCESSION NUMBER(S): [id number] ORDERING CLINICIAN: SYMONE HUDSON FINDINGS: 2 supine [...] Obey Santana 02/26/2024 9:40 AM Dictation workstation: [id number] Normal [facility] Calcidiolon 02-21-2024 25-hydroxyvitamin D3 [Mass/Vol] 19 ng/mL Low 30-100 [facility] Comment on above: Order Comment: Defic iency: < 20 ng/ml Insufficiency: 20-29 ng/ml Sufficiency: 30-100 ng/ml This assay accurately quantifies the sum of Vitamin D3, 25-Hydroxy and Vitamin D2,25-Hydroxy. Performed By: #### 1 989-3 #### SHIV GARCIA ([id number]) [facility] ([facility]) [facility] [place] [address] Cobalaminson 02-21-2024 Cobalamin (Vitamin B12) [Mass/Vol] 385 pg/mL Normal 211-911 [facility] Comment on above: Performed By: #### 2 132-9 #### SHIV GARCIA ([id number]) [facility] ([facility]) [facility] [place] [address] Cortisolon 02-21-2024 Cortisol [Mass/Vol] 6.7 ug/dL Normal 2.5-20.0 [facility] Comment on above: Performed By: #### 2 143-6 #### BERE FOSTERMORRO [place] ([id number]) [facility] ([facility]) [id number] [place], [place] [id number] XR GI TRANSIT COLONIC STUDY KUBon 02-21-2024 XR GI TRANSIT COLONIC STUDY KUB Interpreted By: Obey Santana, STUDY: XR GI TRANSIT COLONIC STUDY KUB; 02/21/2024 12:18 pm INDICATION: Signs/Symptoms:chronic constipation. COMPARISON: None. ACCESSION NUMBER(S): [id number] ORDERING CLINICIAN: SYMONE HUDSON FINDINGS: 2 supine [...] Obey Santana 02/22/2024 9:09 AM Dictation workstation: [id number] [facility] CT ABDOMEN AND PELVIS W ORAL CONTRAST ONLYon 01-18-2024 CT ABDOMEN AND PELVIS W ORAL CONTRAST ONLY Interpreted By: Maciel Joshi, STUDY: CT ABDOMEN AND PELVIS W ORAL CONTRAST ONLY; 01/18/2024 11:47 am INDICATION: Signs/Symptoms: abdominal pain K46.9: Hernia, abdominal. COMPARISON: CT abdomen and pelvis 04/21/2023. ACCESSION NUMBER(S): [id number] ORDERING CLINICIAN: ANDREAS ANDRADE TECHNIQUE: CT of [...] Maciel Joshi 01/19/2024 11:51 PM Dictation workstation: [id number] [facility] Comment on above: Order Comment: Mark Mercer elected: Y XR hand BI 3Von 01-04-2024 XR hand BI 3V [facility] Main [place] [address] [place] [address] XRay Report Signed Patient: Talya Bahena MR#: [id number] 5 : 1975 Acct:[id number] Age/Sex: 48 / F ADM Date: 01/04/24 Loc: XDCLY Room: Type: [facility] Attending Dr: Shaikh Enoch COTTO Copies to: [...] Andreas Solis M.D.01/04/2024 3:21 PM Dictation Location: [place] [address] Transcribed By: [facility] 01/04/24 1521 Dictated By: Andreas Solis DO 01/04/24 1506 Signed By: 01/04/24 1521 [facility] FL UPPER GI SINGLE CONTRAST W SMALL BOWEL FOLLOW THROUGHon 01-01-2024 FL UPPER GI SINGLE CONTRAST W SMALL BOWEL FOLLOW THROUGH Interpreted By: Obey Santana, STUDY: FL UPPER GI SINGLE CONTRAST W SMALL BOWEL FOLLOW THROUGH; 01/01/2024 1:40 pm INDICATION: Signs/Symptoms:Evaluate for small bowel dysmotility. COMPARISON: None. ACCESSION NUMBER(S): [id number] ORDERING CLINICIAN: SYMONE HUDSON TECHNIQUE: An initial [...] observed to reach the colon. FINDINGS: Initial mica plate layer hand image demonstrates a nonspecific nonobstructive bowel gas [...] Obey Santana 01/02/2024 12:26 PM Dictation workstation: [id number] [facility] XR acute abdomen serieson XR acute abdomen series [facility] Main [place] [address] [place] [address] XRay Report Signed Patient: Talya Bahena MR#: [id number] 5 : 1975 Acct:[id number] Age/Sex: 48 / F ADM Date: 09/01/23 Loc: XDCLY Room: Type: [facility] Attending Dr: Shaikh Enoch COTTO Copies to: Shaikh Enoch MD Ordering Provider: Shaikh Enoch MD Date of Service: 09/01/23 XR/XR acute [...] Groves Jr., D.O.09/01/2023 4:01 PM Dictation Location: [place] [address] Transcribed By: [facility] 09/01/23 1601 Dictated By: Gilberto Groves Jr, DO 09/01/23 1556 Signed By: 09/01/23 1601 Normal [facility] Basic Metabolic Panelon 12 Creatinine Clr Calc Pharmacy 123.15 Normal [facility] Comment on above: Performed By: #### YUAN Savage CBCNO #### [place] [address] [place] GFR/1.73 sq M.predicted MDRD (S/P/Bld) [Vol rate/Area] mL/min/{1.73_m2} Normal [facility] Comment on above: Performed By: #### M YUAN Turpin, CBCNO #### [facility] [address] [place] [address] [place] Calcium [Mass/volume] in Ser um or PlasmaOrdered By: Christophe Stockton on 07-08-2023 Calcium [Mass/Vol] 9.2 mg/dL Normal 8.6-10.3 [facility] Comment on above: Performed By: #### YUAN Savage, CBCNO #### [facility] [address] [place] [id number] [place] Carbon dioxide, total [Moles /volume] in Serum or PlasmaOrdered By: Christophe Stockton on 07-08-2023 CO2 [Moles/Vol] 24.4 mmol/L Normal 21.0-31.0 [facility] Comment on above: Performed By: #### YUAN Savage, CBCNO #### [facility] [address] [place] [id number] [place] Chloride [Moles/volume] in S jackson or PlasmaOrdered By: Christophe Stockton on 07-08-2023 Chloride [Moles/Vol] 107 mmol/L Normal 98-107 [facility] Comment on above: Performed By: #### YUAN Savage, CBCNO #### [facility] [address] Creatinine [Mass/volume] in Serum or PlasmaOrdered By: Christophe Stockton on 07-08-2023 Creatinine [Mass/Vol] 0.61 mg/dL Normal 0.60-1.20 [facility] Comment on above: Performed By: #### YUAN Savage, CBCNO #### [facility] [address] Erythrocyte distribution wid th [Ratio] by Automated countOrdered By: Christophe Stockton on 07-08-2023 Erythrocyte distribution width (RBC) [Ratio] 14.9 % Normal 11.9-15.3 [facility] Comment on above: Performed By: #### YUAN Savage, CBCNO #### [facility] [address] Erythrocytes [#/volume] in B lood by Automated countOrdered By: Christophe Stockton on 07-08-2023 RBC (Bld) [#/Vol] 4.38 10*6/uL Normal 3.60-5.00 [facility] Comment on above: Performed By: #### YUAN Savage, CBCNO #### [facility] [address] Glucose [Mass/volume] in Ser um or PlasmaOrdered By: Christophe Stockton on 07-08-2023 Glucose [Mass/Vol] 114 mg/dL High 70-100 [facility] Comment on above: ADA recommended refe rence rangeRandom Glucose Reference Range is dependent on time and content of last meal. Glucose of more than 200 mg/dL in a nonstressed, ambulatory subject supports the diagnosis of Diabetes Mellitus. Result Comment: [place] om Glucose Reference Range is dependent on time and content of last meal. Glucose of more than 200 mg/dL in a nonstressed, ambulatory subject supports the diagnosis of Diabetes Mellitus. ADA recommended reference range Performed By: #### M G, BMP, CBCNO #### [address] Hematocrit [Volume Fraction] of Blood by Automated countOrdered By: Christophe Stockton on 07-08-2023 Hematocrit (Bld) [Volume fraction] 36.9 % Normal 34.0-46.4 [facility] Comment on above: Performed By: #### M Dyana, BMP, CBCNO #### [address] Hemoglobin [Mass/volume] in BloodOrdered By: Chirstophe Stockton on 07-08-2023 Hemoglobin (Bld) [Mass/Vol] 12.4 g/dL Normal 11.8-15.4 [facility] Comment on above: Performed By: #### Lyle Turpin, YUAN, CBCNO #### [address] Hemogram CBC Without Diffon 07-08-2023 Mean Corpuscular HGB Conc 33.7 g/dL Normal 32.0-35.0 [facility] Comment on above: Performed By: #### M Dyana, YUAN, CBCNO #### [address] WBC (Bld) [#/Vol] 8.3 10*3/uL Normal 3.8-11.6 [facility] Comment on above: Performed By: #### Lyle Turpin, YUAN, CBCNO #### [address] Leukocytes [#/volume] correc keenan for nucleated erythrocytes in Blood by Automated counOrdered By: Christophe Stockton on 07-08-2023 WBC corrected for nucl RBC Auto (Bld) [#/Vol] 8.3 10*3/uL 3.8-11.6 [facility] MCH [Entitic mass] by Automa keenan countOrdered By: Christophe Stockton on 07-08-2023 MCH (RBC) [Entitic mass] 28.3 pg Normal 24.7-34.3 [facility] Comment on above: Performed By: #### M Dyana, BMP, CBCNO #### [facility] [address] [place] [address] MCHC Auto (RBC) [Mass/Vol]Or dered By: Christophe Stockton on 07-08-2023 MCHC (RBC) [Mass/Vol] 33.7 g/dL 32.0-35.0 [facility] MCV [Entitic volume] by Auto mated countOrdered By: Christophe Stockton on 07-08-2023 MCV (RBC) [Entitic vol] 84.2 fL Normal 80-100 [facility] Comment on above: Performed By: #### M YUAN Turpin, CBCNO #### [address] Magnesium [Mass/volume] in S jackson or PlasmaOrdered By: Christophe Stockton on 07-08-2023 Magnesium [Mass/Vol] 1.9 mg/dL Normal 1.9-2.7 [facility] Comment on above: Result Comment: PERF ORMED BY: [place] [address] PATHOLOGIST LOG HAUL CHAIN FEEDER CUONG JULIO M.D. Performed By: #### M YUAN Turpin, CBCNO #### [address] No Panel InformationOrdered By: Christophe Stockton on 07-08-2023 Estimated GFR (CKD-EPI) > 60.0 mL/Min [facility] Creatinine Clearance (Chem 123.15 [facility] Platelet mean volume [Entiti c volume] in Blood by Automated countOrdered By: Christophe Stockton on 07-08-2023 Platelet mean volume (Bld) [Entitic vol] 8.6 fL Normal 6.3-10.7 [facility] Comment on above: Result Comment: PERF ORMED BY: [place] [address] PATHOLOGIST LOG HAUL CHAIN FEEDER CUONG JULIO M.D. Performed By: #### M YUAN Turpin, CBCNO #### [facility] [address] [place] [address] Platelets [#/volume] in Bloo d by Automated countOrdered By: Christophe Stockton on 07-08-2023 Platelets (Bld) [#/Vol] 363 10*3/uL Normal 150-450 [facility] Comment on above: Performed By: #### YUAN Savage, CBCNO #### [address] Potassium [Moles/volume] in Serum or PlasmaOrdered By: Christophe Stockton on 07-08-2023 Potassium [Moles/Vol] 3.9 mmol/L Normal 3.5-5.1 [facility] Comment on above: Performed By: #### YUAN Savage, CBCNO #### [address] Serum or plasma anion gap de terminationOrdered By: Christophe Stockton on 07-08-2023 Anion gap [Moles/Vol] 9.5 mmol/L Normal 6.0-15.0 [facility] Comment on above: Performed By: #### YUAN Savage, CBCNO #### [address] Sodium [Moles/volume] in Ser um or PlasmaOrdered By: Christophe Stockton on 07-08-2023 Sodium [Moles/Vol] 137 mmol/L Normal 136-145 [facility] Comment on above: Performed By: #### YUAN Savage CBCNO #### [facility] [address] [place] [address] [place] Urea nitrogen [Mass/volume] in Serum or PlasmaOrdered By: Christophe Stockton on 07-08-2023 Urea nitrogen [Mass/Vol] 9 mg/dL Normal 7-25 [facility] Comment on above: Performed By: #### YUAN Savage, CBCNO #### [place] [address] [place] Activated partial thrombopla stin time (aPTT) [...] coagulation studies. Please contact the laboratory at [phone] for redraw instructions. Automated basophil %Ordered By: Vangie Gonzalez on 07-07-2023 Basophils/100 WBC (Bld) 0.3 % Normal . [facility] Comment on above: Performed By: #### B MP, LIPID, CBC ####[address] Automated basophil countOrde red By: Vangie Gonzalez on 07-07-2023 Basophils (Bld) [#/Vol] 0.0 10*3/uL Normal 0.0-0.2 [facility] Comment on above: Result Comment: PERF ORMED BY: [facility] [address] [place] [address] PATHOLOGIST LOG HAUL CHAIN FEEDER CUONG JULIO M.D. Performed By: #### B MP, LIPID, CBC ####[address] Automated blood monocyte cou ntOrdered By: Vangie Gonzalez on 07-07-2023 Monocytes (Bld) [#/Vol] 0.7 10*3/uL Normal 0.0-0.8 [facility] Comment on above: Performed By: #### B MP, LIPID, CBC ####[address] Automated eosinophil %Ordere d By: Vangie Gonzalez on 07-07-2023 Eosinophils/100 WBC (Bld) 0.9 % Normal . [facility] Comment on above: Performed By: #### B MP, LIPID, CBC ####[address] Automated eosinophil countOr dered By: Vangie Gonzalez on 07-07-2023 Eosinophils (Bld) [#/Vol] 0.1 10*3/uL Normal 0.0-0.45 [facility] Comment on above: Performed By: #### B MP, LIPID, CBC ####[address] Automated monocyte %Ordered By: Vangie Gonzalez on 07-07-2023 Monocytes/100 WBC (Bld) 5.8 % Normal . [facility] Comment on above: Performed By: #### B MP, LIPID, CBC ####[address] Automated neutrophil %Ordere d By: Vangie Gonzalez on 07-07-2023 Neutrophils/100 WBC (Bld) 64.2 % Normal . [facility] Comment on above: Performed By: #### B MP, LIPID, CBC ####[address] Basic Metabolic Panelon 12-0 Anion gap [Moles/Vol] 13.1 mmol/L Normal 6.0-15.0 e [facility] Comment on above: Performed By: #### B MP, LIPID, CBC ####[address] Calcium [Mass/Vol] 9.5 mg/dL Normal 8.6-10.3 [facility] Comment on above: Performed By: #### B MP, LIPID, CBC ####[address] Chloride [Moles/Vol] 108 mmol/L High 98-107 [facility] Comment on above: Performed By: #### B MP, LIPID, CBC ####[address] CO2 [Moles/Vol] 22.9 mmol/L Normal 21.0-31.0 [facility] Comment on above: Performed By: #### B MP, LIPID, CBC ####[address] Creatinine [Mass/Vol] 0.56 mg/dL Low 0.60-1.20 [facility] Comment on above: Performed By: #### B MP, LIPID, CBC ####[place] [id number] [place] Creatinine Clr Calc Pharmacy 134.29 Normal [facility] Comment on above: Performed By: #### B MP, LIPID, CBC ####[place] [id number] [address] GFR/1.73 sq M.predicted MDRD (S/P/Bld) [Vol rate/Area] mL/min/{1.73_m2} Normal [facility] Comment on above: Performed By: #### B MP, LIPID, CBC ####[address] Glucose [Mass/Vol] 109 mg/dL High 70-100 [facility] Comment on above: Result Comment: [facility] Glucose Reference Range is dependent on time and content of last meal. Glucose of more than 200 mg/dL in a nonstressed, ambulatory subject supports the diagnosis of Diabetes Mellitus. ADA recommended reference range Performed By: #### B MP, LIPID, CBC ####[place] [id number] [address] Potassium [Moles/Vol] 4.0 mmol/L Normal 3.5-5.1 [facility] Comment on above: Performed By: #### B MP, LIPID, CBC ####[address] Sodium [Moles/Vol] 140 mmol/L Normal 136-145 [facility] Comment on above: Performed By: #### B MP, LIPID, CBC ####[address] Urea nitrogen [Mass/Vol] 11 mg/dL Normal 7-25 [facility] Comment on above: Performed By: #### B MP, LIPID, CBC ####[address] Cholesterol [Mass/volume] in Serum or PlasmaOrdered By: Vangie Gonzalez on 07-07-2023 Cholesterol [Mass/Vol] 183 mg/dL Normal 140-200 [facility] Comment on above: Chol less than 200 m g/dl low riskChol 201-239 mg/dl borderline riskChol 240 mg/dl and greater high risk Result Comment: Chol less than 200 mg/dl low risk Chol 201-239 mg/dl borderline risk Chol 240 mg/dl and greater high risk Performed By: #### B MP, LIPID, CBC ####[place] [id number] [address] Cholesterol in LDL Calc [Mas s/Vol]Ordered By: Vangie Gonzalez on 07-07-2023 Cholesterol in LDL [Mass/Vol] 103 mg/dL 0-100 [facility] Comment on above: LDL ATP III CLASSIFI CATIONLDL less than 100 mg/dL OptimalLDL 100-129 mg/dL Near or above optimalLDL 130-159 mg/dL Borderline highLDL 160-189 mg/dL HighLDL greater than 189 mg/dL Very high Cholesterol in VLDL Calc [Ma ss/Vol]Ordered By: Vangie Gonzalez on 07-07-2023 Cholesterol in VLDL [Mass/Vol] 27 mg/dL [facility] Complete Blood Count Auto Di ffon 07-07-2023 Erythrocyte distribution width (RBC) [Ratio] 14.9 % Normal 11.9-15.3 [facility] Comment on above: Performed By: #### B MP, LIPID, CBC ####[address] Hematocrit (Bld) [Volume fraction] 37.1 % Normal 34.0-46.4 [facility] Comment on above: Performed By: #### B MP, LIPID, CBC ####[address] Hemoglobin (Bld) [Mass/Vol] 12.2 g/dL Normal 11.8-15.4 [facility] Comment on above: Performed By: #### B MP, LIPID, CBC ####[address] MCH (RBC) [Entitic mass] 27.6 pg Normal 24.7-34.3 [facility] Comment on above: Performed By: #### B MP, LIPID, CBC ####[place] [id number] [facility] MCV (RBC) [Entitic vol] 83.9 fL Normal 80-100 T [facility] Comment on above: Performed By: #### B MP, LIPID, CBC ####[address] Mean Corpuscular HGB Conc 32.9 g/dL Normal 32.0-35.0 [facility] Comment on above: Performed By: #### B MP, LIPID, CBC ####[address] NRBC% 0.1 /100{WBC} Normal 0-0.5 [facility] Comment on above: Performed By: #### B MP, LIPID, CBC ####[address] Platelet mean volume (Bld) [Entitic vol] 8.8 fL Normal 6.3-10.7 [facility] Comment on above: Performed By: #### B MP, LIPID, CBC ####[address] Platelets (Bld) [#/Vol] 355 10*3/uL Normal 150-450 [facility] Comment on above: Performed By: #### B MP, LIPID, CBC ####[address] RBC (Bld) [#/Vol] 4.42 10*6/uL Normal 3.60-5.00 [facility] Comment on above: Performed By: #### B MP, LIPID, CBC ####[address] ECG 12 lead ECGon 07-07-2023 ECG 12 lead ECG [facility] [address] [place] [address] [place] [address] Electrocardiograph Report Signed Patient: Talya Bahena MR#: [id number] 5 : 1975 Acct:[id number] Age/Sex: 48 / F ADM Date: 07/06/23 Loc: Room: [address] [place] [address] Type: ADM IN Attending Dr: Christophe Stockton [...] previous ECGs available Confirmed by [facility] ([facility] on 07/07/2023 9:51:56 AM Referred By: Electronically Signed By:SHERMAN SANTIAGO MD [facility] Transcribed By: MUS Signed By Sherman Santiago MD, [facility] 07/07/23 0951 Normal [facility] echo transthoracicon [facility] echo transthoracic [facility] [place] [address] Echocardiogram Signed Patient: Talya Bahena MR#: [id number] 5 : 1975 Acct:[id number] Age/Sex: 48 / F ADM Date: 07/06/23 Loc: Room: [address] [place] [address] Type: ADM IN Attending Dr: Christophe Stockton DO Ordering Provider: Vangie Gonzalez APRN Date of Service: 07/07/2303/22/500 [facility] echo transthoracic: heart murmur, NSTEMI Copies to: Sherman Santiago MD, [facility] Vangie Gonzalez APRN BSA: 2.0 m2 BP: [...] 07/07/23 0826 Signed By: Sherman Santiago MD, [facility] 07/07/23 1054 Normal [facility] Leukocytes [#/volume] in Blo od by Automated countOrdered By: Vangie Gonzalez on 07-07-2023 WBC (Bld) [#/Vol] 11.8 10*3/uL High 3.8-11.6 [facility] Comment on above: Performed By: #### B MP, LIPID, CBC ####[place] [id number] Lipid Panelon 07-07-2023 LDL Cholesterol,Calculated 103 mg/dL High 0-100 [facility] Comment on above: Result Comment: LDL ATP III CLASSIFICATION LDL less than 100 mg/dL Optimal LDL 100-129 mg/dL Near or above optimal LDL 130-159 mg/dL Borderline high LDL 160-189 mg/dL High LDL greater than 189 mg/dL Very high Performed By: #### B MP, LIPID, CBC ####[place] [id number] Triglyceride w/Reflex 136 mg/dL Normal 0-149 [facility] Comment on above: Result Comment: TRIG ATP III CLASSIFICATION TRIG less than 150 mg/dL Normal TRIG 150-199 mg/dL Borderline high TRIG 200-500 mg/dL High TRIG greater than 500 mg/dL Very high Standard traceable to the Center for Disease Conrtrol and Prevention (CDC) test method. Performed By: #### B MP, LIPID, CBC ####[facility] [id number] VLDL CHOLESTEROL 27 mg/dL Normal [facility] Comment on above: Performed By: #### B MP, LIPID, CBC ####[facility] Lymphocytes [#/volume] in Bl ood by Automated countOrdered By: Vangie Gonzalez on 07-07-2023 Lymphocytes (Bld) [#/Vol] 3.4 10*3/uL Normal 1.00-4.8 [facility] Comment on above: Performed By: #### B MP, LIPID, CBC ####[place] [id number] Lymphocytes/100 leukocytes i n Blood by Automated countOrdered By: Vangie Gonzalez on 07-07-2023 Lymphocytes/100 WBC (Bld) 28.8 % Normal . [facility] Comment on above: Performed By: #### B MP, LIPID, CBC ####[place] [id number] Neutrophils [#/volume] in Bl ood by Automated countOrdered By: Vangie Gonzalez on 07-07-2023 Neutrophils (Bld) [#/Vol] 7.6 10*3/uL Normal 1.8-7.7 [facility] Comment on above: Performed By: #### B MP, LIPID, CBC ####[address] Nucleated erythrocytes [Pres ence] in Blood by Automated countOrdered By: Vangie Gonzalez on 07-07-2023 Nucleated RBC Auto Ql (Bld) 0.1 /100{WBC} 0-0.5 [facility] Partial Thromboplastin Timeo n 07-07-2023 aPTT Coag (Bld) [Time] 61.5 s High 25.1-36.5 [facility] Comment on above: Result Comment: A he matocrit value greater than 55% may lead to inaccurate results in coagulation testing. Patients having hematocrit values >55% require a special collection tube for coagulation studies. Please contact the laboratory at [phone] for redraw instructions. PERFORMED BY: [facility] [address] [place] [address] PATHOLOGIST LOG HAUL CHAIN FEEDER CUONG JULIO M.D. Performed By: #### P TT ####[address] Serum or plasma high density lipoprotein (HDL) cholesterol measurementOrdered By: Vangie Gonzalez on 07-07-2023 Cholesterol in HDL [Mass/Vol] 53 mg/dL Normal 23-92 [facility] Comment on above: HDL CHOL ATP-III CLA SSIFICATION Cardiovascular RiskHDL > or equal to 60 mg/dL LOWHDL < 40 mg/dL HIGH Result Comment: HDL CHOL ATP-III CLASSIFICATION Cardiovascular Risk HDL > or equal to 60 mg/dL LOW HDL < 40 mg/dL HIGH Performed By: #### B MP, LIPID, CBC ####[place] [address] [place] [id number] [facility] Serum or plasma total choles terol/high density lipoprotein (HDL) cholesterol mass ratOrdered By: Vangie Gonzalez on 07-07-2023 Cholesterol.total/Choles terol in HDL [Mass ratio] 3.5 {ratio} Normal <5.0 [facility] Comment on above: Result Comment: PERF ORMED BY: [address] [place] [address] PATHOLOGIST LOG HAUL CHAIN FEEDER CUONG JULIO M.D. Performed By: #### B MP, LIPID, CBC ####[place] [id number] [facility] Triglyceride [Mass/volume] i n Serum or PlasmaOrdered By: Vangie Gonzalez on 07-07-2023 Triglyceride [Mass/Vol] 136 mg/dL 0-149 F [facility] Comment on above: TRIG ATP III CLASSIF ICATIONTRIG less than 150 mg/dL NormalTRIG 150-199 mg/dL Borderline highTRIG 200-500 mg/dL High TRIG greater than 500 mg/dL Very highStandard traceable to the Center for Disease Conrtrol and Prevention (CDC) test method. Troponin I High Sensitivityo n 07-07-2023 Troponin I High Sensitivity 635.6 pg/mL Off scale high 0.0-15.0 [facility] Comment on above: Result Comment: Crit ical Result : Called to and read back by: ISAK MORGAN at: 07/07/2023 06:04:07 by:[id number] PERFORMED BY: [facility] [address] [place] [id number] PATHOLOGIST LOG HAUL CHAIN FEEDER CUONG JULIO M.D. Performed By: #### H S TROP ####[place] [id number] [facility] Troponin I.cardiac [Mass/vol ume] in Serum or Plasma by Detection limit <= 0.01 ng/Ordered By: Vangie Gonzalez on 07-07-2023 Troponin I.cardiac DL <= 0.01 ng/mL [Mass/Vol] 635.6 pg/mL 0.0-15.0 [facility] Comment on above: Critical Result : Ca lled to and read back by: SIAK MORGAN at: 07/07/2023 06:04:07 by:[id number] US venous duplex LE BIon US venous duplex LE BI [facility] [address] [place] [address] [place], [place] [id number] Ultrasound Report Signed Patient: Talya Bahena MR#: [id number] 5 : 1975 Acct:[id number] Age/Sex: 48 / F ADM Date: 07/06/23 Loc: Room: [address] [place] [address] Type: ADM IN Attending Dr: Christophe Stockton [...] Andreas Sinha M.D.07/07/2023 1:13 PM Dictation Location: [facility]04 Tech: Yesy Chuyita Transcribed By: YOHANNES 07/07/23 1313 Dictated By: Andreas Sinha MD 07/07/231312 Signed By: 07/07/23 1313 Normal [facility] ECG 12 lead ECGon 07-06-2023 ECG 12 lead ECG [facility] [place] [address] Electrocardiograph Report Signed Patient: Talya Bahena MR#: [id number] 5 : 1975 Acct:[id number] Age/Sex: 48 / F ADM Date: 07/06/23 Loc: Room: [address] [place] [address] Type: ADM IN Attending Dr: Christophe Stockton [...] pericarditis Borderline ECG Confirmed by [facility]TO [facility] (137[facility] on 07/07/2023 9:51:42 AM Referred By: NOMckayla Electronically Signed By:SHERMAN SANTIAGO MD [facility] Transcribed By: OSCAR Signed By Sherman Santiago MD, FACC 07/07/23 0951 Normal [facility] INR in Platelet poor plasma by Coagulation assayOrdered By: Vangie Gonzalez on 07-06-2023 INR Coag (PPP) [Relative time] 1.0 {INR} Normal [facility] Comment on above: INR Therapeutic Rang e [...] Performed By: #### P TT, PT #### [place] [id number] [facility] Partial Thromboplastin Timeo n 07-06-2023 aPTT Coag (Bld) [Time] 39.1 s High 25.1-36.5 [facility] e [facility] Comment on above: Result Comment: A he matocrit value greater than 55% may lead to inaccurate results in coagulation testing. Patients having hematocrit values >55% require a special collection tube for coagulation studies. Please contact the laboratory at [phone] for redraw instructions. PERFORMED BY: [place] [address] PATHOLOGIST LOG HAUL CHAIN FEEDER CUONG JULIO M.D. Performed By: #### P TT, PT #### [address] Prothrombin time (PT)Ordered By: Vangie Gonzalez on 07-06-2023 PT Coag (PPP) [Time] 11.7 s Normal 9.0-12.9 [facility] Comment on above: A hematocrit value g reater than 55% may lead to inaccurate results in coagulation testing. Patients having hematocrit values >55% require a special collection tube for coagulation studies. Please contact the laboratory at [phone] for redraw instructions. Result Comment: A he matocrit value greater than 55% may lead to inaccurate results in coagulation testing. Patients having hematocrit values >55% require a special collection tube for coagulation studies. Please contact the laboratory at [phone] for redraw instructions. Performed By: #### P TT, PT #### [place] [id number] [place] Troponin I High Sensitivityo n 07-06-2023 Troponin I High Sensitivity 1352.7 pg/mL Off scale high 0.0-15.0 [facility] Comment on above: Result Comment: Crit ical Result : Called to and read back by: TITUS BARTON at: 07/06/2023 23:09:16 by:[id number] PERFORMED BY: [place] [address] PATHOLOGIST LOG HAUL CHAIN FEEDER CUONG JULIO M.D. Performed By: #### [facility] ####[facility] [id number] [place] [address] [facility] COLONOSCOPYon 06-07-2023 Colonoscopy Table formatting fro m the original result was not included. [facility] EGDon 06-07-2023 Esophagogastroduodenosco py Table formatting from the original result was not included. [facility] Comment on above: Order Comment: WITH NAVARRETE [...] Time Specimens No specimens collected Procedure Location [facility] [address] [facility] [address] [place] [address] [address] Singleton [facility] [place] [address] Procedure Provider Yesy Bosch MD [facility] Work Phone: [phone] Table formatting fro m the original result [...] AM Specimens No specimens collected Procedure Location [facility] [address] [facility] [address] [place] [address] [address] Sing[address] [facility] [place] [address] Procedure Provider Juju Teran MD [facility] Work Phone: [phone] [facility] Work Phone: [phone] Radiology Study observation (narrative) [facility] Work Phone: [phone] Radiology Study observation (narrative) [facility] Work Phone: [phone] No Panel InformationOrdered By: Yesy Bosch on 06-07-2023 [facility] Work Phone: Falls Screening (Age 18+)on 03-02-2023 [...] Only; Status:Hold For - Scheduling,Retrospective Authorization; Requested for:[id number]; Perform: Radiology Services Imaging; Due:[id number]; Last Updated By:Marilee Hand; 03/02/2023 12:08:44 PM;Ordered; For:Hernia, abdominal; Ordered By:Andreas Andrade; Patient taking Metformin or Derivatives? : Unknown Radiologist to Determine Optimal Study : Y What are the patient's signs and symptoms? : abdominal pain Hernia, abdominal, Other dysphagia Follow-up PRN Outpatient Follow-up Status: Active Requested for: [id number] Ordered Stat;For: Hernia, abdominal, Other dysphagia; Ordered [...] Tablet Lipitor (more content not included)... Normal [employer] Initial Visit (General Surge ry)on 12-12-2022 Initial Visit (General Surgery) No report was sent Normal [facility] PROF CHEM 8 (BAS METB)on Anion gap [Moles/Vol] 11.5 mmol/L Normal [facility] Comment on above: Performed By: #### T , BMP #### [facility] [address] [place] [address] [address] Wes Leonard Calcium [Mass/Vol] 8.9 mg/dL Normal 8.5-10.1 [facility] Comment on above: Performed By: #### T , BMP #### [facility] [address] [place] [address] [address] Wes Leonard Chloride [Moles/Vol] 104 mmol/L Normal 98-107 [facility] Comment on above: Performed By: #### T ULI, BMP #### [facility] [address] [place] [address] [address] Wes Leonard CO2 [Moles/Vol] 26.3 mmol/L Normal 21.0-32.0 [facility] Comment on above: Performed By: #### T , BMP #### [facility] [address] [place] [address] [address] Wes Leoanrd Creatinine [Mass/Vol] 0.74 mg/dL Normal 0.55-1.02 [facility] Comment on above: Performed By: #### T SH, BMP #### [facility] [address] [place] [address] [address] Wes Leonard EGFR-AF BELIZEAN >60 Normal >=60 [facility] Comment on above: Performed By: #### T SH, BMP #### [facility] [address] [place] [address] [address] Wes Leonard EGFR-NON AF BELIZEAN >60 Normal >=60 [facility] Comment on above: Performed By: #### T SH, BMP #### [facility] [address] [place] [address] [address] Wes Leonard Glucose [Mass/Vol] 166 mg/dL Critically high 74-106 [facility] Comment on above: Performed By: #### T SH, BMP #### [facility] [address] [place] [address] Dr. Wes Leonard Potassium [Moles/Vol] 3.8 mmol/L Normal 3.5-5.1 [facility] Comment on above: Performed By: #### T SH, BMP #### [facility] [address] [place] [address] Dr. Wes Leonard Sodium [Moles/Vol] 138 mmol/L Normal 136-145 [facility] Comment on above: Performed By: #### T SH, BMP #### [facility] [address] [place] [address] Dr. Wes Leonard Urea nitrogen [Mass/Vol] 10.0 mg/dL Normal 7.0-18.0 [facility] Comment on above: Performed By: #### T SH, BMP #### [facility] [address] [place] [address] Dr. Wes Leonard Urea nitrogen/Creatinine [Mass ratio] 13.5 mg/mg Normal [facility] Comment on above: Performed By: #### T SH, BMP #### [facility] [address] [place] [address] Dr. Wes Leonard TSHon 10-21-2022 TSH 1.062 uIU/mL Normal 0.358-3.74 0 [facility] Comment on above: Performed By: #### T ULI BMP #### [facility] [address] [place] [address] [address] Wes Leonard FREE T3on 05-12-2022 FREE T3 3.08 pg/mlL Normal 2.18-3.98 [facility] Comment on above: Performed By: #### T ULI BMP, FT3 #### [facility] [address] [place] [address] Dr. Wes Leonard PROF CHEM 8 (BAS METB)on Anion gap [Moles/Vol] 11.3 mmol/L Normal Th e [facility] Comment on above: Performed By: #### T YUAN MCNALLY, FT3 #### [facility] [address] [place] [address] Dr. Wes Leonard Calcium [Mass/Vol] 9.4 mg/dL Normal 8.5-10.1 [facility] Comment on above: Performed By: #### T ULI BMP, FT3 #### [facility] [address] [place] [address] Dr. Wes Leonard Chloride [Moles/Vol] 106 mmol/L Normal 98-107 [facility] Comment on above: Performed By: #### T YUAN MCNALLY, FT3 #### [facility] [address] [place] [address] Dr. Wes Leonard CO2 [Moles/Vol] 26.3 mmol/L Normal 21.0-32.0 [facility] Comment on above: Performed By: #### T ULI BMP, FT3 #### [facility] [address] [place] [address] Dr. Wes Leonard Creatinine [Mass/Vol] 0.73 mg/dL Normal 0.55-1.02 [facility] Comment on above: Performed By: #### T ULI BMP, FT3 #### [facility] [address] [place] [address] Dr. Wes Leonard EGFR-AF BELIZEAN >60 Normal >=60 [facility] Comment on above: Performed By: #### T ULI BMP, FT3 #### [facility] [address] [place] [address] [address] Wes Leonard EGFR-NON AF BELIZEAN >60 Normal >=60 [facility] Comment on above: Performed By: #### T ULI BMP, FT3 #### [facility] [address] [place] [address] [address] Wes Leonard Glucose [Mass/Vol] 116 mg/dL Critically high 74-106 T [facility] Comment on above: Performed By: #### T ULI BMP, FT3 #### [facility] [address] [place] [address] Dr. Wes Leonard Potassium [Moles/Vol] 4.6 mmol/L Normal 3.5-5.1 [facility] Comment on above: Performed By: #### T ULI BMP, FT3 #### [facility] [address] [place] [address] Dr. Wes Leonard Sodium [Moles/Vol] 139 mmol/L Normal 136-145 [facility] Comment on above: Performed By: #### T ULI BMP, FT3 #### [facility] [address] [place] [address] Dr. Wes Leonard Urea nitrogen [Mass/Vol] 10.0 mg/dL Normal 7.0-18.0 [facility] Comment on above: Performed By: #### T ULI BMP, FT3 #### [facility] [address] [place] [address] Dr. Wes Leonard Urea nitrogen/Creatinine [Mass ratio] 13.7 mg/mg Normal [facility] Comment on above: Performed By: #### T ULI BMP, FT3 #### [facility] [address] [place] [address] Dr. Wes Leonard TSHon 05-12-2022 TSH 0.129 uIU/mL Critically low 0.358-3.74 0 [facility] Comment on above: Performed By: #### T ULI, BMP, FT3 #### [facility] [address] [place] [address] Dr. Wes Leonard Coding Summaryon 02-03-2022 Coding Summary HTMLBase 64 JqhcmteqUYh3lLa+PGhlYWQ+P K8EYGWtL02qkUJxnP8CP4hPLF 1YNYAZELODRJ0SUW1syED6LVc zN0YfwwCk RknxrELtAA90MNr6YOD2aJioM GfloG1wzLWhA5m1GdAaUJ17uA 56YWuvKSYnDpS9ZmUbzpahrHS y Z0kdNlIbxXQuRgv+PHRhYmxlI HdpZHRoPScxMDAlJyBzdHlsZT 3eNa1mNIShLVAihQxdtXBfUmC j e3hlWEYyTWqlEU6ihXleV3Bwf SY6USBrr5p4He34lIL+PHRkIH G7vKbgEKzpf848BwJvk7ksWOK 3 cANlPPvaICV8Q74br8I7FQSyX ZKjQEI6vHF9fK7yrDuftxqjC0 TzvIWjHbI7FLU3rKZupT2udUi n awmwdB7oDmw+R73XFH7KACBYK D1YTph6V2UzBfkplVR+PC90YW ZuRI67oSOmnLTsk4ligQi6HiJ w KEEyCSM3uNuuCQtzl9BoLWBiC 47phNSmd6F2GHScoLtovFAxPz ByxBU9eP7iEGxejplje1jkplz n Hsvih2rbil09oR89W38dAQbqL TQpNKE6KQBvXGIqzRsqis5oiU 9wIi8+FEldd8jpb6oozCr9VuT w TYEjjxWoqHlwIWN6g4GeHp81R 4KgmFdte3HtPna7yt15qGVrg8 X6qAR4ZSduBWJgbX5tSHpwAqH 6 VBZqRwMnmN01yVOpGTajQp9mq LmskRnmKC4dARHxlfqaWPOzlJ 2pMKIzlPDadJxtPA0eAXUlcqa m t665WwUqJJL4KUQatSCaK7Qvx W7fLpWyLJQaLJAbU9YxbJUaDG zsV518SQmlIvV7WMTtmvRqF0I s RMVvxKanTkY3a4X4Ra5Fu6Oja loeFVB6VHjcOTC0RpQ4PfMcVz W2T7DnIsj2XUJcrMlxSJ0oC1E h UYOjsnfbsbztiGY8OBGcGPJib W15tBVnVQnjMg5dx8K5t457GS OsUOEdoD59Sv3bkYqqCTXgxGD U aV8bhpfpi8ytqdgaDlFqDNEdB Zc9HHl9WTUzdBjtKyOuXTQ3Ra L4CJK2iTVxzT7dzOuogtotiW8 w Oyc+V39auB5qEOQ5LDT2rbjnT JWlehKmFJ74ES14B5DdUopvrP FibGU+SLHceoZjaSefCG6rCaR j y1cwd4IsYOlpT8JfYSWhYCmoU ab0UIZiFRI4wXT4wW3tCBRjSW rmd7A3fSF4O6UulzUwax1lg8p s WWDuMRtqN86ltFXvs7E6YQPyr ZE9ACOxdDeaFxPhwV31Ddr+PG TpsUrmd3QqVykzi6tnq0oquYe 9 VkHeXAOrnhVqgCepFGC7o9LyX g66O91cUAlkRTMqJYPpTITxKK CosGdbks0tsN7pKf9+PGNvbCB 3 sXZ8vR4vCJTyJsR1ENasE475D bTzmGIdAkwti2aqi9aduOr1Oq GpVIDnmsMrpPobNKA7r7IsQj0 8 O29aADfrJBQxPNTbHNEoYOYcp Qevqm8nxF6uTe8+AN8pj6nnnp 82tA21dFI+UWQhZLK7kBmgAKs w ZEBoyX6tKQiwHjU5OZMyHtCge E41zXHiHSodWo4inItcdDutVA 6tXATxhirey468WePpw2sgOQJ w kSGbTYtbRHG8L38sb9S1BTWhV XVtTXI9rXZ5pZ1bvTqyeraiqB PorNsxtkGzpJmuZAocDQufX32 6 IHRvcDsnPlBhdGllbnQgTmFtZ Tq3F0NyMuj2WTYstKwlCQ4gfG JhOLewRe5wcUzsmPxgRO7gDIF p ivpqj188UzJea2hrYYUttKTiR VhnIWR2Q40om7H1YLTnOUJqII T2iXP2zF9gfOxpwdcffFFygWp g abUsjMvrAHizOYisJ556AJCmp AekKlQprtRwLWEskRS4RW75DR 91qORnl2Z8eTR3C7JpKOHtcad t tnfmhWP3QQElIWSloT51Gl4qy DctNu8uFOXrPCW0UHAuqYZlT1 TxsF4cWnByTWKsZRPgO5RcvQW t LQixL548BVddFrX5WTTvpeErX 7BgTBUjzWfvLrL8c5K2Lf8GZ0 L0SV28XU00zLXxj0U7tMQ4U2F h BEZmuhsldmazySU6BEBzAYRxl Z99Qp1evEpoQz5dCILxAQD2RI MdbTQqM1AbaL6lWqOpJDQqNGA w A4JijXPtTUriL695TGgsTbV7H ZZcqpTrB1WiRFMhqQadElI4h8 R6Lb1ONZo7VP00AM29lTRxr7C 5 mVJ2K9XbXLLjhlwbhgdblRZ1H XKoSMIxiW90Sb3qxFhzCh3lYE XzSBP7ORSuyHFeL3XdcY7sQsE j VJFtBAKbI8LhlWGfBGkbZ809Z RcyWsG1ICCiwcKzM7KrZAXuyM fpVrY6d6H7Tn0REJQmRY37DSI 5 rKM8SH23NN21U9UeXpafgFIah +PHRhYmxlIHdpZHRoPScxMD RuUpUvnUgtZJ6gNd2bSMHqTCN v fQxldEGzItAli1xkNRSnUGffN E1kjHayV0JayKG4NGHcx3d9Kk 48T84fY4RhgLL+GECfnOY1kEL 0 tZ9zLoGbFuM8LUwhF703YjSew YVbIqatj4ejy3vgwUk8OzH9HI ZghmZfaHkgNFE3n9DrRu10O50 s IHdpZHRoPSIxNSUiIHZhbGlnb a2iqA8iXg8+KANusPX4vUF0pG 1aCsKsWiY4AZvrT093EvQkwNH v Zkhpl7juz0xbaFq8JjUsBHMvl tNsaZzpPHA5b8HdDc33K8SgsK pqh9SjRbo2mi63dLVmz8K1kVF 9 I2HhYVIkpkmecGHbhWqvCN8eA TOterjcCIWdkJ6gYLSkO0s4Za UsPcD5KCikB4SpxdW8BOFkyXP g OMonQAG6X65an4H1SJJhCSMkA HC8hZR8gG1meGnwskmsjIGodW bcxdJdpKsaOEfpQGhzA891ZRM v wLzdTYDfjX3kOOZkoQDjtPuaM Z4yUEJnszdjPvvAH8AVN6MbDO ENWLMXKT6FEF86DV80tMGkv7Y 5 dNZ6B3DiTETylvurnrjzcZM7Z MFfGUDjwS76rWLfHMnhOi5be8 Q3b517BDOoNNJsmQ92Zn8mrXr g XZLaqGDKtX8srcwdt5htknofC bGaEEOtZKo6LQu5RHWluQinPu IoKXH0TvX6UQI5hMLaeQ9bdLn n aatmxY5mJok+EUcuBJLpYPv8V zwvdGQ+HATiUEV6iIhiUHwmGM PguF6sWDEaU9t1YqQcRfF7GZc u X8AdWEHarzxkGp93vS2cXoNfM kB6BDfjK3TgcwM9ECEirIHoCB nvKQR3R71jb8P3IRJpJQPlWRM 7 aDJ2dM7voMifptistNJkmUkao kXrlXhiQBuxLKqyS348GBZkmR myQtF2WIidAHIdME92MN67lXA g v1M9iUG9R0YvWATzpyxrdceml DC6XBUmYVKmtR15oJOpGBcpBf 8pp8V5c535YRRaQNKofS03Pb2 u hNljFISdyUDUqQ9vghlst3nld shiHwAjUFZqAWf2KPh1IRCqbF nxKkGsJXV7GoK2RJU1vQEqlJ8 h jBrijcwqzO5wVrb+RkVNQUxFP G16LI89rFNxc5H2xJP1P5NpRC MdmlobacwwgLV5MDSrTCJbwM5 7 pNLnVTlrUp2ns8B4s418MHCaW RUyeM04Ri8rkWrkTNTheCUZgZ 0fcazwx9myofcaDuWnTMMsIKt 0 AOt0EJLiaCkrApXqSHY2QjF4M CZ8oIRrtW9wuNnzcmscxC0jNs c+N8A0U3NkHldzbGG+OQ35MCC s NQ60jVNdjBFlm5vyxXm0KeTpE LPeAER6zLpjQEpcm1NiLHBhQ5 3zpGDut6X9HMTqxMucdVJmFtA l qHC4kA8cFBuacdsme3mopzheH rgah0drvc40uW66G90hKHteFS TlLFAqWXUuLDUjhTkbdx7zhM5 w Ii8+CPTlcRO2gDA9qG9zTwOgX hY0GFpsV648FtQoaOHvXemuv8 veu2vmpAm7UvVjFYQghzNyoCm u ZQL2e9GpBr31B71fIDklBAUwC IOcBYHbTYZllZuttl4yrO7vAc 8+SN2zd6zmpo03hB21cSB+PHR k GAC0mKzjANvcCWOqwW0tUFbfQ eJ6RDFvBtOjbS50cNTsMGamVz 2akKjlvWqsEW8mTQAznozka49 0 UcBvp5uhIADwoCRcQIcnXDZ2S 91tb0H2QMLgCKCrDFQ4bFJ7eO 1hbGlnbjogbGVmdDsgdmVydGl j QUeqSBuhY485ZYQhuSkgRkZfw GOuB8iotvLIPR4cTqciqRY+PH JhQLC7gEgqEKuoJXHlmM4sYUU p I9y1VoRhVqM5GAldC4DrjmS2R DDgoORqHXHebZEMfB1nhcqnq6 sdftamNeSeWPNiFPr4EPq1ZEO s hMymSsQwAPU0BoI9FWF2qZGhu U2zjPkfzgttuP7wVfi+RklOOj wvdGQ+UUYuGCT8pBiuNPnkQEA k jC2rXYMmZ5n7BbJhJnO5TRxmQ 7EdtqG8HWLwhOLiOSBwyRUAbL 6xhhlho3jtfpmjCgDmWOTyEWw 0 IDt2OADzxAciMgJnHNP3HbQ2B GE4gOJuhW3npRtsocxowA5vEh c+TVJOOjwvdGQ+TGKzCEL2zFv l QDotHTAwaW1vILQqH0u0SbYcH bB6LPywY7UuvmG6OXMunWPoZK EhcLWJwO8wmglax7jvjghrApX w SJOdDTc1UHo2QWDatBnwBeHjO GR9HuE3DRD2zTZutO6wwQemzo hflN5cJsg+IHV4YVQ5XS78YX2 8 T0GgIhgwmXGenLF+PHRhYmxlI HdpZHRoPScxMDAlJyBzdHlsZT 3yIo0cWPHhORHywUexkJNrXeG j b2x (more content not included)... [facility] Provider Orderson 02-02-2022 Provider Orders [id number] FF [facility] Vital Signs Date Time Vital Sign Value Performing Clinician Facility 10-12-2023 09:58-0400 Body height 167.6 cm Symone Hudson MD Work Phone: [facility] 10-12-2023 09:58-0400 Body mass index (BMI) [Ratio] 31.26 kg/m2 Symone Hudson MD Work Phone: [facility] 10-12-2023 09:58-0400 Body weight 87.86 kg Symone Hudson MD Work Phone: [facility] 10-12-2023 09:58-0400 Diastolic blood pressure 72 mm[Hg] Symone Hudson MD Work Phone: [facility] 10-12-2023 09:58-0400 Heart rate 66 /min Symone Hduson MD Work Phone: [facility] 10-12-2023 09:58-0400 Respiratory rate 16 /min Symone Hudson MD Work Phone: [facility] 10-12-2023 09:58-0400 Systolic blood pressure 112 mm[Hg] Symone Hudson MD Work Phone: [facility] 08-31-2023 11:23-0500 Body height 167.6 cm Shaikh Enoch COTTO Work Phone: [facility] 08-31-2023 11:23-0500 Body mass index (BMI) [Ratio] 30.99 kg/m2 Shaikh Enoch COTTO Work Phone: [facility] 08-31-2023 11:23-0500 Body temperature 99.1 [degF] Shaikh Enoch COTTO Work Phone: [facility] 08-31-2023 11:23-0500 Body weight 87.09 kg Shaikh Enoch COTTO Work Phone: [facility] 08-31-2023 11:23-0500 Diastolic blood pressure 72 mm[Hg] Shaikh Enoch COTTO Work Phone: [facility] 08-31-2023 11:23-0500 Heart rate 86 /min Shaikh Enoch COTTO Work Phone: [facility] 08-31-2023 11:23-0500 SaO2% (BldA) [Mass fraction] 99 % Shaikh Enoch COTTO Work Phone: [facility] 08-31-2023 11:23-0500 Systolic blood pressure 108 mm[Hg] Shaikh Enoch COTTO Work Phone: [facility] 07-08-2023 11:01-0500 Body temperature 98.2 [degF] MD Shaikh Kendall Work Phone: [facility] 07-08-2023 11:01-0500 Diastolic blood pressure 62 mm[Hg] MD Shaikh Kendall Work Phone: [facility] 07-08-2023 11:01-0500 Heart rate 72 /min MD Shaikh Kendall Work Phone: [facility] 07-08-2023 11:01-0500 Respiratory rate 18 /min MD Shaikh Kendall Work Phone: [facility] 07-08-2023 11:01-0500 SaO2% (BldA) [Mass fraction] 96 % MD Shaikh Kendall Work Phone: [facility] 07-08-2023 11:01-0500 Systolic blood pressure 109 mm[Hg] MD Shaikh Kendall Work Phone: [facility] 07-08-2023 06:00-0500 Body weight 87.8 kg MD Shaikh Kendall Work Phone: [facility] 07-07-2023 14:23-0500 Body height 167.64 cm MD Shaikh Kendall Work Phone: [facility] 07-07-2023 06:00-0500 Inhaled oxygen flow rate 2 L/min MD Shaikh Kendall Work Phone: [facility] 06-07-2023 13:31-0500 Diastolic blood pressure 68 mm[Hg] Juju Teran MD MPH Work Phone: [facility] 06-07-2023 13:31-0500 Heart rate 81 /min Juju Teran MD MPH Work Phone: [facility] 06-07-2023 13:31-0500 Respiratory rate 16 /min Juju Teran MD MPH Work Phone: [facility] 06-07-2023 13:31-0500 SaO2% (BldA) [Mass fraction] 96 % Juju Teran MD MPH Work Phone: [facility] 06-07-2023 13:31-0500 Systolic blood pressure 100 mm[Hg] Juju Teran MD MPH Work Phone: [facility] 06-07-2023 13:24-0500 Body temperature 97.5 [degF] Juju Teran MD MPH Work Phone: [facility] 06-07-2023 10:08-0500 Diastolic blood pressure 83 mm[Hg] Juju Teran MD MPH Work Phone: [facility] 06-07-2023 10:08-0500 Heart rate 85 /min Juju Teran MD MPH Work Phone: [facility] 06-07-2023 10:08-0500 Respiratory rate 16 /min Juju Teran MD MPH Work Phone: [facility] 06-07-2023 10:08-0500 SaO2% (BldA) [Mass fraction] 95 % Juuj Teran MD MPH Work Phone: [facility] 06-07-2023 10:08-0500 Systolic blood pressure 111 mm[Hg] Juju Teran MD MPH Work Phone: [facility] 03-02-2023 11:43-0400 Body height 167.64 cm Referring Provider Unknown XM-Yizlhux-Hujebrv 2100 Work Phone: 03-02-2023 11:43-0400 Body mass index (BMI) [Ratio] 30.34 kg/m2 Referring Provider Unknown UM-Joeytab-Sjhydad 2100 Work Phone: 03-02-2023 11:43-0400 Body surface area Derived from formula 1.95 m2 Referring Provider Unknown ZU-Idzjwgz-Lcypuwx 2100 Work Phone: 03-02-2023 11:43-0400 Body temperature 96.9 [degF] Referring Provider Unknown YB-Rivrfqo-Wqvtjfu 2100 Work Phone: 03-02-2023 11:43-0400 Body weight 85.28 kg Referring Provider Unknown UY-Uvpbsnj-Drcmvzw 2100 Work Phone: 03-02-2023 11:43-0400 Diastolic blood pressure 81 mm[Hg] Referring Provider Unknown WB-Rxaxttm-Vvhsfig 2100 Work Phone: 03-02-2023 11:43-0400 Heart rate 89 /min Referring Provider Unknown CI-Fnsvvwk-Qidnrfd 2100 Work Phone: 03-02-2023 11:43-0400 SaO2% (BldA) [Mass fraction] 98 % Referring Provider Unknown WI-Jrgemxj-Efgsjhw 2100 Work Phone: 03-02-2023 11:43-0400 Systolic blood pressure 116 mm[Hg] Referring Provider Unknown QE-Muqrqif-Thnxqfv 2100 Work Phone: 03-02-2023 11:43-0400 0 1 Referring Provider Unknown FN-Fnfbidv-Ikgqahy 2100 Work Phone: Comment on above: [employer] Encounters Encounter Date Encounter Type Care Provider Facility Start: 03-25-2024 End: 03-25-2024 ambulatory [facility] Start: 03-17-2024 End: 03-18-2024 Refill Arash Freeman MD Work Phone: Arahs Freeman MD Comment on above: Refill Request Start: 02-28-2024 End: 02-28-2024 ambulatory [facility] Start: 02-28-2024 End: 02-28-2024 ambulatory [facility] Start: 02-23-2024 End: 02-23-2024 ambulatory [facility] Start: 02-21-2024 End: 02-21-2024 ambulatory SYMONE [facility] Start: 02-05-2024 End: 02-05-2024 ambulatory SHAIKH ENOCH Not Available Start: 01-29-2024 End: 01-29-2024 ambulatory [facility] Start: 01-25-2024 End: 01-25-2024 Office outpatient visit 25 minutes Arash Freeman MD Work Phone: Arash Freeman MD Comment on above: VIVIAN (generalized anx iety disorder); Severe episode of recurrent major depressive disorder, without psychotic features (HCC); Chronic fatigue syndrome Start: 01-18-2024 End: 01-18-2024 ambulatory [facility] Start: 01-04-2024 End: 01-04-2024 Patient encounter procedure MD Shaikh Kendall Work Phone: [facility] Work Phone: Start: 01-04-2024 End: 01-04-2024 ambulatory MD Shaikh Kendall Work Phone: [facility] Work Phone: Start: 01-01-2024 End: 01-01-2024 Subsequent hospital visit by physician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 / Procedures Referred By Contact Referred To Contact Gastroenterology Diagnoses Other dysphagia Procedures EGD MS ESOPHAGOGASTRODUODENOSCOPY TRANSORAL DIAGNOSTIC MS EGD TRANSORAL BIOPSY SINGLE/[place] [address] [facility] [place] [address] Referral ID Status Reason Start Date Expiration Date V isits Requested Visits Authorized [id number] Authorized 04/16/2023 10/13/2023 1 1 Reason Onset [...] small [place] [address] [address] Department of Surgery-[place] [id number] Referral ID Status Reason Start Date Expiration Date Visits Requested Visits Authorized [id number] Authorized Perform Procedure 10/12/2023 10/11/2024 1 1 [...] MD Other Provider Active Anh Moses , [facility]- Other Provider Active Jennifer Rodriguez MD Other Provider Active Christophe Stockton DO Attending Provider Active Weight Loss Physician Relationship Specialty Start Date End Date Shaikh Kendall MD [address] [place] [phone] PCP - General Internal Medicine 08/31/23 Weight Loss Physician Relationship Specialty Start Date End Date Shaikh Kendall MD [address] [place] [phone] PCP - General Internal Medicine 08/31/23 Weight Loss Physician Relationship Specialty Start Date End Date Shaikh Kendall MD [address] [place] [address] PCP - General Internal Medicine 01/01/24 Team [...] BE BASED ON THE PRIMARY CLINICAL RECORDS. [employer] [facility]. provides no warranty or guarantee of the accuracy or completeness of information in this document.
== END 2024-04-02 11:32 | disposition home or self-care (01) ==
LOC: MAMMO 11:31
PROVIDERS: PCP Internal Medicine; Visit Provider Internal Medicine
DX: Z12.31 Encounter for screening mammogram for malignant neoplasm of breast (principal)
CPT/HCPCS: 77063; 77067

== ENCOUNTER 2024-05-07 12:55 | Emergency (ER) | payer MEDICARE, OTHER, SELFPAY ==
[2024-05-07 13:00] VITALS: BP 103/68; PULSE 80; TEMP 36.7; O2SAT 97; BMI 29.1
--- OUTSIDE RECORDS SUMMARY | 2024-05-07 13:13 | XMS_ITS | CCD ---
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 Name Role Phone Unavailable Primary Care Provider Unavailabl e FAWWAD, GUTIERRES H Primary Care Unavailable FAWWAD, GUTIERRES H Attending Unavailable [place], DR NURY Carpenter Consulting Unavailable FAWWAD, GUTIERRES [...] Provider Unavailable DO Hayley Cordova Other Provider [phone] MD Sherman Santiago Other Provider [phone] MD Rishabh Boykin Other Provider MD Suzan Clifton Other Provider MD Alo Perez Other Provider BRITTANI Doshi Other Provider [phone] MD Teri Wynn Other Provider MD Sunshine Forrester Other Provider MD Katelyn Carrillo Other Provider Aurelia [facility] Anh [place] Other Provider [phone] MD Jennifer Rodriguez Other Provider DO Christophe Stockton Attending Provider LUCILLE SOLORZANO Attending Unavailable CRYSTALD, GUTIERRES Referring Unavailable FAWSABAD, [facility] Primary Care Unavailable Enoch COTTO [facility] Primary Care Provider Unavailable Primary Care Provider Unavailhai Kendall MD [facility] Primary Care Provider MD Enoch [facility] Primary Care Provider MD Breezy Kendall Attending Provider Fawadryan, Gutierres Primary Care Unavailable Enoch, Gutierres Attending Unavailable Fadanield, Gutierres Admitting Unavailable Fawsabad, Gutierres Primary Care Unavailable Enoch, Gutierres Attending Unavailable Enoch, Gutierres Admitting Unavailable Fasabad, [facility] Primary Care Unavailable Christophe Stockton Attending Unavailable [...] Referring Unavailable FAWWAD, GUTIERRES Primary Care Unavailable STEINHASYMONE COHEN Referring Unava ilable FAWWAD, [facility] Primary Care Unavailable ZOYASYMONE SMALLS Referring Unava ilable FAWWAD, [facility] Primary Care Unavailable FAWWAD, [facility] Primary Care Unavailable ANDREAS ANDRADE Attending Unavailable RAYMOND, ANDREAS Alvarenga Referring Unavailable FAWWAD, [facility] Primary Care Unavailable ANDREAS ANDRADE Referring Unavailable FAWWAD, [facility] Primary Care Unavailable RAYMOND, ANDREAS Alvarenga Attending Unavailable AL KHADEM, CARLYN Referring Unavailable FAWWAD, [facility] Primary Care Unavailable ANDREAS ANDRADE Admitting Unavailable RAYMOND, ANDREAS Alvarnega Attending Unavailable FAWWAD, [facility] Primary Care Unavailable KHAITAN, JUJU Attending Unavailable KHAITAN, JUJU Attending Unavailable ANDREAS ANDRADE Referring Unavailable AL KHADEM, CARLYN Referring Unavailable FAULX, YESY [place] Attending Unavailable KHAITAN, JUJU Referring Unavailable FAULX, YESY [place] Attending Unavailable ANDREAS ANDRADE Attending Unavailable FAWPRD, [facility] Primary Care Unavailable CHOWDHRYMARIE Attending Unavailable FAWWAD, [facility] Primary Care Unavailable ANDREAS ANDRADE Attending Unavailable FAWWAD, [facility] Primary Care Unavailable [facility], DELAWARESYMONE SMALLS Attending Unava ilable Allergies Allergy Classification Reported Allergen(s) Allergy Type Date of Onset Reaction(s) Facility (3 sources) Adhesive agent; Translations: [ADHESIVE] Drug allergy (disorder) 9 infection [facility] Repository (1 source) Gadolinium Drug Allergy [facility] Repository (2 sources) Morphine; Translations: [MORPHINE] Drug Allergy 5 [facility] Repository (3 sources) Adhesive Tape TAPE; Translations: [Adhesive Tape TAPE] Allergy to drug (finding) JT-Pdqhkjg-Qco well 2100 Work Phone: (3 sources) Adhesive Tape; Translations: [adhesive tape] Propensity to adverse reactions 3 [facility] (3 sources) Codeine; Translations: [CODEINE] Drug Allergy 5 [facility] Repository (1 source) GADOLINIUM-CONT AINING CONTRAST MEDIA; Translations: [GADOLINIUM-CON TAINING CONTRAST MEDIA] Propensity to adverse reactions to drug (disorder) 5 [facility] Repository (2 sources) Iodine Drug Allergy 7 Rash [facility] (2 sources) Morphine Drug Allergy 5 Hives [facility] (2 sources) Gadolinium Derivatives Drug Intolerance 5 [facility] (2 sources) Wound Dressing Adhesive Drug Allergy 9 Unknown, Rash [facility] (1 source) Adhesive agent Drug allergy (disorder) 2 [facility] Repository (3 sources) ADHESIVE TAPE-SILICONES; Translations: [ADHESIVE TAPE-SILICONES] Propensity to adverse reactions to drug (disorder) 3 [facility] 2 Repository Medications Current Medications Medication Drug [...] 0 Refills: 0 Ordered: 02-Mar-2023 DO Active [id number] 200 actuat albuterol 0.09 mg/actuat metered dose inhaler (14 sources) beta2-Adrenergic Agonist Start: 08-27-2022 albut saul 90 mcg/actuation inhaler 08/27/2022 Active Albuterol 90 MCG /ACT AERS Quantity: 0 Refills: 0 Ordered: 02-Mar-2023 DO Active amitriptyline hydrochloride 25 mg oral tablet (11 sources) Tricyclic Antidepressant Start: 07-06-2023 take 12.5 mg by mouth at bedtime [...] on above: Take 1 capsule by mo [facility] once daily. clopidogrel 75 mg oral tablet (2 sources) P2Y12 Platelet Inhibitor Start: 07-08-2023 take 75 mg by mouth once daily Clopidogrel Active 75 MG PO Daily July 08, 2023 1:00am docusate sodium 100 mg oral capsule (2 sources) Start: 08-31-2023 End: 09-10-2023 take 1 capsule by mouth in the [...] sources) Serotonin and Norepinephrine Reuptake Inhibitor Start: 04-20-2023 End: 04-23-2024 take 1 capsule by mouth twice daily DULoxetine (CYMBALTA) 60 mg capsule Take 1 capsule by mouth two times a day. 180 capsule 1 04/23/2024 Active Start: 12-01-2022 End: 04-17-2023 take 1 [...] Comment on above: Take 1 capsule by [facility] once daily. Take 1 capsule by [facility] twice daily. Take 1 capsule by mo [facility] two times a day. fluticasone propionate 0.05 mg/actuat metered dose nasal spray (5 sources) Corticosteroid Start: take 1 spray(s) nasal route twice daily Fluticasone Propionate Active 1 SPRAY INTRANASAL Twice daily July 06, 2023 1:00am administer into each nostril Flonase 50 MCG/A CT SUSP Quantity: 0 Refills: 0 Ordered: 3-Feb-2023 DO Active 60 actuat fluticasone propionate 0.25 mg/actuat / salmeterol 0.05 mg/actuat dry powder inhaler (10 sources) Corticosteroid, beta2-Adrenergic Agonist Start: 08-18-2022 Wixela Inhub 25 0-50 mcg/dose diskus inhaler 08/18/2022 Active Start: 08-18-2022 End: 08-31-2023 Fluticasone-Salmeterol 250-5 0 MCG/ACT aerosol powder Inhale 1 Inhalation in the morning and 1 Inhalation before bedtime. 0 08/18/2022 08/31/2023 Discontinued (Therapy completed) Nwgdsrgzkkh-Bnpzhqbco-Qrcgxq er (2 sources) Start: 07-06-2023 Qmnxkdjgtry-Fznnxazqk-Poxjpg er (Trelegy Ellipta) 200-62.5-25 mcg Blister With Device Active 1 INH INHALATION Daily July 06, 2023 1:00am Start: 07-06-2023 Fluticasone-Um eclidin-Vilanter (Trelegy Ellipta) 200-62.5-25 mcg Blister With Device Active 1 INH INHALATION Daily July 06, 2023 12:00am lamoTRIgine 200 mg oral tablet (20 sources) Mood Stabilizer, Anti-epileptic Agent Start: 04-17-2023 End: 04-23-2024 take 1 tablet by mouth twice daily lamoTRIgine (LAMICTAL) 200 mg tablet Take 1 tablet by mouth two times a day. 180 tablet 1 04/23/2024 Active Start: 12-01-2022 End: 01-11-2023 take 1 [...] mg oral tablet (16 sources) l-Thyroxine Start: End: take 150 ug by mouth once daily [...] 05/11/2023 Active take 1 tablet by lew th every twenty-four hours Metoprolol Succinate ER 25 [...] 2023 1:00am take 1 tablet by lew th every eight hours as needed for nausea and vomiting ondansetron (Zofran) 8 MG tablet Take 1 tablet by mouth every 8 (eight) hours if needed for nausea or vomiting 0 Active Zofran 8 MG TABS Quantity: 0 Refills: 0 Ordered: 02-Mar-2023 DO Active polyethylene glycol 3350 54092 mg powder for oral solution (1 source) [...] Drug Class(es) Dates Sig (Normalized) Sig (Original) ALPRAZolam 1 mg oral tablet (20 sources) Benzodiazepine Start: 04-16-2023 End: 07-22-2024 take 1 tablet by mouth twice daily as needed for anxiety ALPRAZolam (XANAX) 1 mg tablet Indications: VIVIAN (generalized anxiety disorder) Take 1 tablet by mouth two times a day as needed for anxiety for up to 90 days. 60 tablet 2 01/25/2024 04/23/2024 Discontinued Start: 10-03-2022 End: 03-15-2023 take 1 tablet by mouth twice daily as needed for anxiety ALPRAZolam (XANAX) 1 mg tablet Indications: VIVAIN (generalized anxiety disorder) Take 1 tablet by [...] t wo times a day as needed. amphetamine aspartate 5 mg / amphetamine sulfate 5 mg / dextroamphetamine saccharate 5 mg / dextroamphetamine sulfate 5 mg oral tablet (11 sources) Central Nervous System Stimulant Start: End: take 1 tablet by mouth three times daily dextroamphetamine-amphet amine (ADDERALL) 20 mg tablet Indications: Hypersomnolence , Chronic fatigue syndrome Take 1 tablet by mouth three times daily for 30 days. 90 tablet 0 10/03/2022 10/09/2022 Discontinued Comment on above: Take 1 tablet by lew three times daily for 30 days. barium sulfate (E-Z-Paque) 96 % (w/w) suspension 110 mL (1 source) Start: End: take 110 mL by mouth once 110 mL, oral, Once in imaging, Starting on Mon01/01/24 at 1129, For 1 dose barium sulfate (Entero Vu) 24 % suspension 600 mL (1 source) Start: End: take 600 mL by mouth once 600 mL, oral, Once in imaging, Starting on Mon01/01/24 at 1129, For 1 dose dextroamphetamine sulfate 10 mg oral tablet (20 sources) Central Nervous System Stimulant Start: End: take 1 tablet by mouth three times daily Dextroamphetamine Sulfate 10 mg tablet Indications: Severe episode of recurrent major depressive disorder, without psychotic features (HCC) , Chronic fatigue syndrome Take 1 tablet by mouth three times a day for 30 days. 90 tablet 04/18/2024 04/23/2024 Discontinued Start: 07-06-2023 take 20 mg by mouth [...] on above: Take 1 tablet by lew three times daily for 30 days. This to replace all previous stimulants as of today. Take 1 tablet by lew three times daily for 30 days. Take 1 tablet by lew three times a day for 30 days. Take 1 tablet by lew three times a day for 14 days. Trelegy Ellipta 200-62.5-25 MCG/ACT Inhalation Aerosol Powder Breath Activated (3 sources) Trelegy Ellipta 200-62.5-25 MCG/ACT Inhalation Aerosol Powder Breath Activated Quantity: 0 Refills: 0 Ordered: 02-Mar-2023 DO Active 24 hr verapamil hydrochloride 180 mg extended release oral capsule (11 sources) Calcium Channel Gigi Start: 3 End: 3 take 360 mg by mouth once daily [...] disease (7 sources) Atherosclerotic heart disease of [place] coronary artery without angina pectoris; Translations: [Arteriosclerotic [...] severe without psychotic features] Onset: 6 Chronic Nausea and vomiting (2 sources) Nausea with vomiting, unspecified; Translations: [Nausea with vomiting, unspecified] Onset: 4 Episodic Nutritional deficiencies (2 sources) Vitamin D deficiency, [...] IN RIGHT HAND] Onset: 3 Episodic Other disorders of stomach and duodenum (2 sources) Gastroparesis; Translations: [Gastroparesis] Onset: 4 Episodic Other gastrointestinal disorders (13 sources) Colostomy present; Translations: [Colostomy status] Onset: 0 06-06-2023 Chronic Other gastrointestinal disorders (4 sources) Colostomy status; Translations: [Colostomy status (Multi)] Onset: 3 Chronic Other gastrointestinal disorders (2 sources) Irritable bowel syndrome with constipation; Translations: [Irritable bowel syndrome with constipation] Onset: 4 Chronic Other gastrointestinal disorders (14 sources) Dysphagia; Translations: [Other dysphagia] Onset: 3 06-06-2023 Episodic Other gastrointestinal disorders (3 sources) Slow transit constipation; Translations: [Slow transit constipation] Onset: 4 08-31-2023 Episodic Other gastrointestinal disorders (2 sources) Chronic constipation; Translations: [Other constipation] 10-12-2023 Episodic Other gastrointestinal disorders (2 sources) Dysphagia, unspecified; Translations: [Dysphagia, unspecified] Onset: 4 Episodic Other gastrointestinal disorders (2 sources) Slow transit constipation; Translations: [Slow transit constipation] Onset: 4 Episodic Other screening for suspected [...] 07-06-2023 07-06-2023 Episodic Other connective tissue disease (19 sources) Fibromyalgia; Translations: [Fibromyalgia] Onset: 01-28-2016 Episodic [...] of bowel preparation was evaluated using the Goddard Bowel Preparation Scale with scores of: right [...] Time Specimens No specimens collected Procedure Location [facility] [address] [facility] [id number] Referring Provider Carlyn Mosquera MD Procedure Provider Andreas Andrade MD [facility] Cal 02-28-2024 Esophagogastroduodenosco py Table formatting [...] Andreas Andrade MD 02/28/2024 1241 Procedure Location [facility] [address] [facility] [id number] Referring Provider Andreas Andrade MD Procedure Provider Andreas Andrade MD [facility] Surgical pathology studyon 0 02-28-2024 Surgical pathology study Pathology repor t.total SEE COMMENT Surgical Pathology Case: [id number] Authorizing Provider: Andreas Andrade MD Collected: 02/28/2024 1241 Ordering Location: [facility] Received: 02/28/2024 2157 Center Pathologist: Alis [...] is submitted in toto in one cassette. [facility] AP ASR DISCLAIMER One or more of the reagents used to perform assays on this specimen MAY have contained components considered to be analyte specific reagents (ASR's). ASR's have not been cleared or approved by the U.S. Food and Drug Administration. These assays were developed and their performance characteristics determined by the Department of Pathology at [facility]. The FDA does not require this [...] positive and negative controls which stained appropriately. [facility] XR GI TRANSIT COLONIC STUDY [facility] 02-23-2024 XR GI TRANSIT COLONIC STUDY [facility] Interpreted By: Obey Santana, STUDY: XR GI TRANSIT COLONIC STUDY KUB; 02/23/2024 12:16 pm INDICATION: Signs/Symptoms:Sitz marker #3. COMPARISON: 02/21/2024 ACCESSION NUMBER(S): [id number] ORDERING CLINICIAN: SYMONE HUDSON FINDINGS: 2 supine [...] Obey Santana 02/26/2024 9:40 AM Dictation workstation: [id number] [facility] Calcidiolon 02-21-2024 25-hydroxyvitamin D3 [Mass/Vol] 19 ng/mL Low 30-100 [facility] Comment on above: Order Comment: Defic iency: < 20 ng/ml Insufficiency: 20-29 ng/ml Sufficiency: 30-100 ng/ml This assay accurately quantifies the sum of Vitamin D3, 25-Hydroxy and Vitamin D2,25-Hydroxy. Performed By: #### 1 989-3 #### SHIV GARCIA ([id number]) [facility] ([facility]) [address] [place] [address] Cobalaminson 02-21-2024 Cobalamin (Vitamin B12) [Mass/Vol] 385 pg/mL Normal 211-911 [facility] Comment on above: Performed By: #### 2 132-9 #### SHIV GARCIA ([id number]) [facility] ([facility]) [address] [place] [address] Cortisolon 02-21-2024 Cortisol [Mass/Vol] 6.7 ug/dL Normal 2.5-20.0 [facility] Comment on above: Performed By: #### 2 143-6 #### BERE [place] ([id number]) [facility] ([facility]) [address] [place] [address] XR GI TRANSIT COLONIC STUDY KUBon 02-21-2024 XR GI TRANSIT COLONIC STUDY KUB Interpreted By: Obey Santana, STUDY: XR GI TRANSIT COLONIC STUDY KUB; 02/21/2024 12:18 pm INDICATION: Signs/Symptoms:chronic constipation. COMPARISON: None. ACCESSION NUMBER(S): [id number] ORDERING CLINICIAN: SYMONE HUDSON FINDINGS: 2 supine [...] Obey Santana 02/22/2024 9:09 AM Dictation workstation: [id number] [facility] CT ABDOMEN AND PELVIS W ORAL CONTRAST ONLYon 01-18-2024 CT ABDOMEN AND PELVIS W ORAL CONTRAST ONLY Interpreted By: Maciel Joshi, STUDY: CT ABDOMEN AND PELVIS W ORAL CONTRAST ONLY; 01/18/2024 11:47 am INDICATION: Signs/Symptoms: abdominal pain K46.9: Hernia, abdominal. COMPARISON: CT abdomen and pelvis 04/21/2023. ACCESSION NUMBER(S): [id number] ORDERING CLINICIAN: ANDREAS ANDRADE TECHNIQUE: CT of [...] Maciel Joshi 01/19/2024 11:51 PM Dictation workstation: [id number] [facility] Comment on above: Order Comment: Mark Mercer elected: Y XR hand BI 3Von 01-04-2024 XR hand BI 3V [facility] [address] [place] [address] XRay Report Signed Patient: Talya Bahena MR#: [id number] 5 : 1975 Acct:[id number] Age/Sex: 48 / F ADM Date: 01/04/24 Loc: [facility] Room: Type: [facility] Attending Dr: Shaikh Enoch COTTO Copies to: [...] Andreas Solis M.D.01/04/2024 3:21 PM Dictation Location: [place] [address] Transcribed By: YOHANNES 01/04/24 1521 Dictated By: Andreas Solis DO 01/04/24 1506 Signed By: 01/04/24 1521 Normal [facility] FL UPPER GI SINGLE CONTRAST W SMALL BOWEL FOLLOW THROUGHon 01-01-2024 FL UPPER GI SINGLE CONTRAST W SMALL BOWEL FOLLOW THROUGH Interpreted By: Obey Santana, STUDY: FL UPPER GI SINGLE CONTRAST W SMALL BOWEL FOLLOW THROUGH; 01/01/2024 1:40 pm INDICATION: Signs/Symptoms:Evaluate for small bowel dysmotility. COMPARISON: None. ACCESSION NUMBER(S): [id number] ORDERING CLINICIAN: SYMONE HUDSON TECHNIQUE: An initial [...] observed to reach the colon. FINDINGS: Initial yield clerk image demonstrates a nonspecific nonobstructive bowel gas [...] Obey Santana 01/02/2024 12:26 PM Dictation workstation: [id number] [facility] XR acute abdomen serieson XR acute abdomen series [facility] [address] [place] [address] XRay Report Signed Patient: Talya Bahena MR#: [id number] 5 : 1975 Acct:[id number] Age/Sex: 48 / F ADM Date: 09/01/23 Loc: XDCLY Room: Type: [facility] Attending Dr: Shaikh Enoch COTTO Copies to: [...] CONSTIPATION. Impression dictated by: Gilberto Groves Jr., D.ONereida09/01/2023 4:01 PM Dictation Location: [place] [address] Transcribed By: [facility] 09/01/23 1601 Dictated By: Gilberto Groves Jr, DO 09/01/23 1556 Signed By: 09/01/23 1601 Normal [facility] Basic Metabolic Panelon 12-0 Creatinine Clr Calc Pharmacy 123.15 Normal [facility] Comment on above: Performed By: #### M YUAN Turpin CBCDC #### [facility] [address] [place], [place] [id number] [facility] GFR/1.73 sq M.predicted MDRD (S/P/Bld) [Vol rate/Area] mL/min/{1.73_m2} Normal [facility] Comment on above: Performed By: #### M YUAN Turpin CBCNO #### [place] [id number] [place] Calcium [Mass/volume] in Ser um or PlasmaOrdered By: Christophe Stockton on 07-08-2023 Calcium [Mass/Vol] 9.2 mg/dL Normal 8.6-10.3 [facility] Comment on above: Performed By: #### YUAN Savage, CBCNO #### [facility] [address] [place] [address] Carbon dioxide, total [Moles /volume] in Serum or PlasmaOrdered By: Christophe Stockton on 07-08-2023 CO2 [Moles/Vol] 24.4 mmol/L Normal 21.0-31.0 [facility] Comment on above: Performed By: #### YUAN Savage, CBCNO #### [facility] [address] Chloride [Moles/volume] in S jackson or PlasmaOrdered By: Christophe Stockton on 07-08-2023 Chloride [Moles/Vol] 107 mmol/L Normal 98-107 [facility] Comment on above: Performed By: #### YUAN Savage, CBCNO #### [facility] [address] [place] [address] Creatinine [Mass/volume] in Serum or PlasmaOrdered By: Christophe Stockton on 07-08-2023 Creatinine [Mass/Vol] 0.61 mg/dL Normal 0.60-1.20 [facility] Comment on above: Performed By: #### YUAN Savage, CBCNO #### [address] Erythrocyte distribution wid th [Ratio] by Automated countOrdered By: Christophe Stockton on 07-08-2023 Erythrocyte distribution width (RBC) [Ratio] 14.9 % Normal 11.9-15.3 [facility] Comment on above: Performed By: #### YUAN Savaeg, CBCNO #### [facility] [address] [place] [address] [place] Erythrocytes [#/volume] in B lood by Automated countOrdered By: Christophe Stockton on 07-08-2023 RBC (Bld) [#/Vol] 4.38 10*6/uL Normal 3.60-5.00 [facility] Comment on above: Performed By: #### M G, BMP, CBCNO #### [facility] [address] Glucose [Mass/volume] in Ser um or PlasmaOrdered By: Christophe Stockton on 07-08-2023 Glucose [Mass/Vol] 114 mg/dL High 70-100 [facility] Comment on above: ADA recommended refe rence rangeRandom Glucose Reference Range is dependent on time and content of last meal. Glucose of more than 200 mg/dL in a nonstressed, ambulatory subject supports the diagnosis of Diabetes Mellitus. Result Comment: [place] Glucose Reference Range is dependent on time and content of last meal. Glucose of more than 200 mg/dL in a nonstressed, ambulatory subject supports the diagnosis of Diabetes Mellitus. ADA recommended reference range Performed By: #### YUAN Savage CBCNO #### [address] Hematocrit [Volume Fraction] of Blood by Automated countOrdered By: Christophe Stockton on 07-08-2023 Hematocrit (Bld) [Volume fraction] 36.9 % Normal 34.0-46.4 [facility] Comment on above: Performed By: #### YUAN Savage CBCNO #### [address] Hemoglobin [Mass/volume] in BloodOrdered By: Christophe Stockton on 07-08-2023 Hemoglobin (Bld) [Mass/Vol] 12.4 g/dL Normal 11.8-15.4 [facility] Comment on above: Performed By: #### YUAN Savage CBCNO #### [address] Hemogram CBC Without Diffon 07-08-2023 Mean Corpuscular HGB Conc 33.7 g/dL Normal 32.0-35.0 [facility] Comment on above: Performed By: #### YUAN Savage CBCNO #### [address] WBC (Bld) [#/Vol] 8.3 10*3/uL Normal 3.8-11.6 [facility] Comment on above: Performed By: #### YUAN Savage, CBCNO #### [facility] [address] Leukocytes [#/volume] correc keenan for nucleated erythrocytes in Blood by Automated counOrdered By: Christophe Stockton on 07-08-2023 WBC corrected for nucl RBC Auto (Bld) [#/Vol] 8.3 10*3/uL 3.8-11.6 [facility] MCH [Entitic mass] by Automa keenan countOrdered By: Christophe Stockton on 07-08-2023 MCH (RBC) [Entitic mass] 28.3 pg Normal 24.7-34.3 [facility] Comment on above: Performed By: #### YUAN Savage CBCNO #### [facility] [address] [place] [address] MCHC Auto (RBC) [Mass/Vol]Or dered By: Christophe Stockton on 07-08-2023 MCHC (RBC) [Mass/Vol] 33.7 g/dL 32.0-35.0 [facility] MCV [Entitic volume] by Auto mated countOrdered By: Christophe Stockton on 07-08-2023 MCV (RBC) [Entitic vol] 84.2 fL Normal 80-100 [facility] Comment on above: Performed By: #### YUAN Savage, CBCNO #### [facility] [address] [place] [address] Magnesium [Mass/volume] in S jackson or PlasmaOrdered By: Christophe Stockton on 07-08-2023 Magnesium [Mass/Vol] 1.9 mg/dL Normal 1.9-2.7 [facility] Comment on above: Result Comment: PERF ORMED BY: [place] [address] PATHOLOGIST CONVEYOR OPERATOR CUONG JULIO M.D. Performed By: #### YUAN Savage, CBCNO #### [address] No Panel InformationOrdered By: Christophe Stockton on 07-08-2023 Estimated GFR (CKD-EPI) > 60.0 mL/Min [facility] Creatinine Clearance (Chem 123.15 [facility] Platelet mean volume [Entiti c volume] in Blood by Automated countOrdered By: Christophe [place] on 07-08-2023 Platelet mean volume (Bld) [Entitic vol] 8.6 fL Normal 6.3-10.7 [facility] Comment on above: Result Comment: PERF ORMED BY: [place] [address] PATHOLOGIST CONVEYOR OPERATOR CUONG JULIO M.D. Performed By: #### YUAN Savage, CBCNO #### [facility] [address] [place] [address] [place] Platelets [#/volume] in Bloo d by Automated countOrdered By: Christophe [place] on 07-08-2023 Platelets (Bld) [#/Vol] 363 10*3/uL Normal 150-450 [facility] Comment on above: Performed By: #### YUAN Savage CBCNO #### [facility] [address] [place] [address] [place] Potassium [Moles/volume] in Serum or PlasmaOrdered By: Christophe [place] on 07-08-2023 Potassium [Moles/Vol] 3.9 mmol/L Normal 3.5-5.1 [facility] Comment on above: Performed By: #### YUAN Savage, CBCNO #### [facility] [address] [place] [address] Serum or plasma anion gap de terminationOrdered By: Christophe [place] on 07-08-2023 Anion gap [Moles/Vol] 9.5 mmol/L Normal 6.0-15.0 [facility] Comment on above: Performed By: #### YUAN Savage, CBCNO #### [facility] [address] [place] [address] [place] Sodium [Moles/volume] in Ser um or PlasmaOrdered By: Christophe [place] on 07-08-2023 Sodium [Moles/Vol] 137 mmol/L Normal 136-145 [facility] Comment on above: Performed By: #### M G, BMP, CBCNO #### [facility] [address] Urea nitrogen [Mass/volume] in Serum or PlasmaOrdered By: Christophe [place] on 07-08-2023 Urea nitrogen [Mass/Vol] 9 mg/dL Normal 7-25 [facility] Comment on above: Performed By: #### M G, BMP, CBCNO #### [facility] [address] Activated partial thrombopla stin time (aPTT) in platelet poor plasma by coagulation aOrdered By: Jayden Joe on 07-07-2023 aPTT Coag (PPP) [Time] 61.5 s 25.1-36.5 [facility] Comment on above: A hematocrit value g reater than 55% may lead to inaccurate results in coagulation testing. Patients having hematocrit values >55% require a special collection tube for coagulation studies. Please contact the laboratory at [phone] for redraw instructions. Automated basophil %Ordered By: Vangie Gonzalez on 07-07-2023 Basophils/100 WBC (Bld) 0.3 % Normal . [facility] Comment on above: Performed By: #### B MP, LIPID, CBC ####[facility] Automated basophil countOrde red By: Vangie Gonzalez on 07-07-2023 Basophils (Bld) [#/Vol] 0.0 10*3/uL Normal 0.0-0.2 [facility] Comment on above: Result Comment: PERF ORMED BY: [place] [address] PATHOLOGIST CONVEYOR OPERATOR CUONG JULIO M.D. Performed By: #### B MP, LIPID, CBC ####[facility] Automated blood monocyte cou ntOrdered By: Vangie Gonzalez on 07-07-2023 Monocytes (Bld) [#/Vol] 0.7 10*3/uL Normal 0.0-0.8 [facility] Comment on above: Performed By: #### B MP, LIPID, CBC ####[address] Automated eosinophil %Ordere d By: Vangie Gonzalez on 07-07-2023 Eosinophils/100 WBC (Bld) 0.9 % Normal . [facility] Comment on above: Performed By: #### B MP, LIPID, CBC ####[address] Automated eosinophil countOr dered By: Vangie Gonzalez on 07-07-2023 Eosinophils (Bld) [#/Vol] 0.1 10*3/uL Normal 0.0-0.45 [facility] Comment on above: Performed By: #### B MP, LIPID, CBC ####[address] Automated monocyte %Ordered By: Vangie Gonzalez on 07-07-2023 Monocytes/100 WBC (Bld) 5.8 % Normal . [facility] Comment on above: Performed By: #### B MP, LIPID, CBC ####[address] Automated neutrophil %Ordere d By: Vangie Gonzalez on 07-07-2023 Neutrophils/100 WBC (Bld) 64.2 % Normal . [facility] Comment on above: Performed By: #### B MP, LIPID, CBC ####[address] Basic Metabolic Panelon 12-0 Anion gap [Moles/Vol] 13.1 mmol/L Normal 6.0-15.0 [facility] Comment on above: Performed By: #### B MP, LIPID, CBC ####[address] Calcium [Mass/Vol] 9.5 mg/dL Normal 8.6-10.3 [facility] Comment on above: Performed By: #### B MP, LIPID, CBC ####[address] Chloride [Moles/Vol] 108 mmol/L High 98-107 [facility] Comment on above: Performed By: #### B MP, LIPID, CBC ####[address] CO2 [Moles/Vol] 22.9 mmol/L Normal 21.0-31.0 [facility] Comment on above: Performed By: #### B MP, LIPID, CBC ####[address] Creatinine [Mass/Vol] 0.56 mg/dL Low 0.60-1.20 [facility] Comment on above: Performed By: #### B MP, LIPID, CBC ####[address] Creatinine Clr Calc Pharmacy 134.29 Normal [facility] Comment on above: Performed By: #### B MP, LIPID, CBC ####[address] GFR/1.73 sq M.predicted MDRD (S/P/Bld) [Vol rate/Area] mL/min/{1.73_m2} Normal [facility] Comment on above: Performed By: #### B MP, LIPID, CBC ####[address] Glucose [Mass/Vol] 109 mg/dL High 70-100 [facility] Comment on above: Result Comment: [place] Glucose Reference Range is dependent on time and content of last meal. Glucose of more than 200 mg/dL in a nonstressed, ambulatory subject supports the diagnosis of Diabetes Mellitus. ADA recommended reference range Performed By: #### B MP, LIPID, CBC ####[address] Potassium [Moles/Vol] 4.0 mmol/L Normal 3.5-5.1 [facility] Comment on above: Performed By: #### B MP, LIPID, CBC ####[address] Sodium [Moles/Vol] 140 mmol/L Normal 136-145 [facility] Comment on above: Performed By: #### B MP, LIPID, CBC ####[facility] Urea nitrogen [Mass/Vol] 11 mg/dL Normal 7-25 [facility] Comment on above: Performed By: #### B MP, LIPID, CBC ####[address] Cholesterol [Mass/volume] in Serum or PlasmaOrdered By: Vangie Gonzalez on 07-07-2023 Cholesterol [Mass/Vol] 183 mg/dL Normal 140-200 [facility] Comment on above: Chol less than 200 m g/dl low riskChol 201-239 mg/dl borderline riskChol 240 mg/dl and greater high risk Result Comment: Chol less than 200 mg/dl low risk Chol 201-239 mg/dl borderline risk Chol 240 mg/dl and greater high risk Performed By: #### B MP, LIPID, CBC ####[place] [address] Cholesterol in LDL Calc [Mas s/Vol]Ordered By: Vangie Gonzalez on 07-07-2023 Cholesterol in LDL [Mass/Vol] 103 mg/dL 0-100 [facility] Comment on above: LDL ATP III CLASSIFI CATIONLDL less than 100 mg/dL OptimalLDL 100-129 mg/dL Near or above optimalLDL 130-159 mg/dL Borderline highLDL 160-189 mg/dL HighLDL greater than 189 mg/dL Very high Cholesterol in VLDL Calc [Ma ss/Vol]Ordered By: Vangie Gonzalez on 07-07-2023 Cholesterol in VLDL [Mass/Vol] 27 mg/dL [facility] Complete Blood Count Auto Di ffon 07-07-2023 Erythrocyte distribution width (RBC) [Ratio] 14.9 % Normal 11.9-15.3 [facility] Comment on above: Performed By: #### B MP, LIPID, CBC ####[place] [address] Hematocrit (Bld) [Volume fraction] 37.1 % Normal 34.0-46.4 [facility] Comment on above: Performed By: #### B MP, LIPID, CBC ####[address] Hemoglobin (Bld) [Mass/Vol] 12.2 g/dL Normal 11.8-15.4 [facility] Comment on above: Performed By: #### B MP, LIPID, CBC ####[address] MCH (RBC) [Entitic mass] 27.6 pg Normal 24.7-34.3 [facility] Comment on above: Performed By: #### B MP, LIPID, CBC ####[address] MCV (RBC) [Entitic vol] 83.9 fL Normal 80-100 [facility] Comment on above: Performed By: #### B MP, LIPID, CBC ####[address] Mean Corpuscular HGB Conc 32.9 g/dL Normal 32.0-35.0 [facility] Comment on above: Performed By: #### B MP, LIPID, CBC ####[address] NRBC% 0.1 /100{WBC} Normal 0-0.5 [facility] Comment on above: Performed By: #### B MP, LIPID, CBC ####[address] Platelet mean volume (Bld) [Entitic vol] 8.8 fL Normal 6.3-10.7 [facility] Comment on above: Performed By: #### B MP, LIPID, CBC ####[address] Platelets (Bld) [#/Vol] 355 10*3/uL Normal 150-450 [facility] Comment on above: Performed By: #### B MP, LIPID, CBC ####[address] RBC (Bld) [#/Vol] 4.42 10*6/uL Normal 3.60-5.00 [facility] Comment on above: Performed By: #### B MP, LIPID, CBC ####[facility] [id number] [place] [id number] [facility] ECG 12 lead ECGon 07-07-2023 ECG 12 [place] [address] Electrocardiograph Report Signed Patient: Talya Bahena MR#: [id number] 5 : 1975 Acct:[id number] Age/Sex: 48 / F ADM Date: 07/06/23 Loc: Room: [address] [place] [address] Type: ADM IN Attending Dr: Christophe [place] [...] previous ECGs available Confirmed by PAMELA COTTO [facility], SHERMAN ([id number]) on 07/07/2023 9:51:56 AM Referred By: Electronically Signed By:SHERMAN SANTIAGO MD [facility] Transcribed By: MUS Signed By Sherman Sanitago MD, FAC 07/07/23 0951 Normal [facility] ECH echo transthoracicon ECH echo transthoracic [facility] [address] Echocardiogram Signed Patient: Talya Bahena MR#: [id number] 5 : 1975 Acct:[id number] Age/Sex: 48 / F ADM Date: 07/06/23 Loc: Room: [address] [place] [address] Type: ADM IN Attending Dr: Christophe [place] DO Ordering Provider: Vangie Gonzalez APRN Date of Service: 07/07/2303/22/500 ECH/ECH echo transthoracic: heart murmur, NSTEMI Copies to: Sherman Santiago MD, [facility] Vangie Gonzalez APRN BSA: 2.0 m2 BP: [...] 07/07/23 0826 Signed By: Sherman Santiago MD, [facility] 07/07/23 1054 Normal [facility] Leukocytes [#/volume] in Blo od by Automated countOrdered By: Vangie Gonzalez on 07-07-2023 WBC (Bld) [#/Vol] 11.8 10*3/uL High 3.8-11.6 [facility] Comment on above: Performed By: #### B MP, LIPID, CBC ####[facility] [place] [id number] [facility] Lipid Panelon 07-07-2023 LDL Cholesterol,Calculated 103 mg/dL High 0-100 [facility] Comment on above: Result Comment: LDL ATP III CLASSIFICATION LDL less than 100 mg/dL Optimal LDL 100-129 mg/dL Near or above optimal LDL 130-159 mg/dL Borderline high LDL 160-189 mg/dL High LDL greater than 189 mg/dL Very high Performed By: #### B MP, LIPID, CBC ####[facility] [address] [place] [id number] [facility] Triglyceride w/Reflex 136 mg/dL Normal 0-149 [facility] Comment on above: Result Comment: TRIG ATP III CLASSIFICATION TRIG less than 150 mg/dL Normal TRIG 150-199 mg/dL Borderline high TRIG 200-500 mg/dL High TRIG greater than 500 mg/dL Very high Standard traceable to the Center for Disease Conrtrol and Prevention (CDC) test method. Performed By: #### B MP, LIPID, CBC ####[address] VLDL CHOLESTEROL 27 mg/dL Normal [facility] Comment on above: Performed By: #### B MP, LIPID, CBC ####[address] Lymphocytes [#/volume] in Bl ood by Automated countOrdered By: Vangie Gonzalez on 07-07-2023 Lymphocytes (Bld) [#/Vol] 3.4 10*3/uL Normal 1.00-4.8 [facility] Comment on above: Performed By: #### B MP, LIPID, CBC ####[address] Lymphocytes/100 leukocytes i n Blood by Automated countOrdered By: Vangie Gonzalez on 07-07-2023 Lymphocytes/100 WBC (Bld) 28.8 % Normal . [facility] Comment on above: Performed By: #### B MP, LIPID, CBC ####[address] Neutrophils [#/volume] in Bl ood by Automated countOrdered By: Vangie Gonzalez on 07-07-2023 Neutrophils (Bld) [#/Vol] 7.6 10*3/uL Normal 1.8-7.7 [facility] Comment on above: Performed By: #### B MP, LIPID, CBC ####[address] Nucleated erythrocytes [Pres ence] in Blood by Automated countOrdered By: Vangie Gonzalez on 07-07-2023 Nucleated RBC Auto Ql (Bld) 0.1 /100{WBC} 0-0.5 [facility] Partial Thromboplastin Timeo n 07-07-2023 aPTT Coag (Bld) [Time] 61.5 s High 25.1-36.5 [facility] Comment on above: Result Comment: A he matocrit value greater than 55% may lead to inaccurate results in coagulation testing. Patients having hematocrit values >55% require a special collection tube for coagulation studies. Please contact the laboratory at [phone] for redraw instructions. PERFORMED BY: [facility] [address] [place] [id number] PATHOLOGIST CONVEYOR OPERATOR CUONG JULIO M.D. Performed By: #### P TT ####[place] [id number] [facility] Serum or plasma high density lipoprotein (HDL) cholesterol measurementOrdered By: Vangie Gonzalez on 07-07-2023 Cholesterol in HDL [Mass/Vol] 53 mg/dL Normal 23-92 [facility] Comment on above: HDL CHOL ATP-III CLA SSIFICATION Cardiovascular RiskHDL > or equal to 60 mg/dL LOWHDL < 40 mg/dL HIGH Result Comment: HDL CHOL ATP-III CLASSIFICATION Cardiovascular Risk HDL > or equal to 60 mg/dL LOW HDL < 40 mg/dL HIGH Performed By: #### B MP, LIPID, CBC ####[place] [id number] [facility] Serum or plasma total choles terol/high density lipoprotein (HDL) cholesterol mass ratOrdered By: Vangie Gonzalez on 07-07-2023 Cholesterol.total/Choles terol in HDL [Mass ratio] 3.5 {ratio} Normal <5.0 [facility] Comment on above: Result Comment: PERF ORMED BY: [facility] [address] [place] [id number] PATHOLOGIST CONVEYOR OPERATOR CUONG JULIO M.D. Performed By: #### B MP, LIPID, CBC ####[place] [id number] [facility] Triglyceride [Mass/volume] i n Serum or PlasmaOrdered By: Vangie Gonzalez on 07-07-2023 Triglyceride [Mass/Vol] 136 mg/dL 0-149 [facility] Comment on above: TRIG ATP III CLASSIF ICATIONTRIG less than 150 mg/dL NormalTRIG 150-199 mg/dL Borderline highTRIG 200-500 mg/dL High TRIG greater than 500 mg/dL Very highStandard traceable to the Center for Disease Conrtrol and Prevention (CDC) test method. Troponin I High Sensitivityo n 07-07-2023 Troponin I High Sensitivity 635.6 pg/mL Off scale high 0.0-15.0 [facility] Comment on above: Result Comment: Crit ical Result : Called to and read back by: ISAK MORGAN at: 07/07/2023 06:04:07 by:[id number] PERFORMED BY: [place] [address] PATHOLOGIST CONVEYOR OPERATOR CUONG JULIO M.D. Performed By: #### H S TROP ####[facility] We[address] Troponin I.cardiac [Mass/vol ume] in Serum or Plasma by Detection limit <= 0.01 ng/Ordered By: Vangie Gonzalez on 07-07-2023 Troponin I.cardiac DL <= 0.01 ng/mL [Mass/Vol] 635.6 pg/mL 0.0-15.0 [facility] Comment on above: Critical Result : Ca lled to and read back by: ISAK MORGAN at: 07/07/2023 06:04:07 by:[id number] US venous duplex LE BIon US venous duplex LE BI [facility] [address] Ultrasound Report Signed Patient: Talya Bahena MR#: [id number] 5 : 1975 Acct:[id number] Age/Sex: 48 / F ADM Date: 07/06/23 Loc: Room: [address] [place] [address] Type: ADM IN Attending Dr: Christophe [place] [...] Andreas Sinha M.D.07/07/2023 1:13 PM Dictation Location: [place] [address] Tech: Yesy Boogie Transcribed By: YOHANNES 07/07/231312 Dictated By: Andreas Sinha MD 07/07/231312 Signed By: 07/07/231312 Normal [facility] ECG 12 lead ECGon 07-06-2023 ECG 12 lead ECG [facility] [place] [address] Electrocardiograph Report Signed Patient: Talya Bahena MR#: [id number] 5 : 1975 Acct:[id number] Age/Sex: 48 / F ADM Date: 07/06/23 Loc: Room: [address] [place] [address] Type: ADM IN Attending Dr: Christophe [place] [...] pericarditis Borderline ECG Confirmed by PAMELA COTTO FACC, SHERMAN ([id number]) on 07/07/2023 9:51:42 AM Referred By: NOMckayla Electronically Signed By:SHERMAN SANTIAGO MD [facility] Transcribed By: OSCAR Signed By Sherman Santiago MD, FACC 07/07/23 0951 Normal [facility] INR in Platelet poor plasma by Coagulation assayOrdered By: Vangie Gonzalez on 07-06-2023 INR Coag (PPP) [Relative time] 1.0 {INR} Normal [facility] Comment on above: INR Therapeutic Rang e [...] Performed By: #### P TT, PT #### [facility] [address] [place] [address] Partial Thromboplastin Timeo n 07-06-2023 aPTT Coag (Bld) [Time] 39.1 s High 25.1-36.5 [facility] Comment on above: Result Comment: A he matocrit value greater than 55% may lead to inaccurate results in coagulation testing. Patients having hematocrit values >55% require a special collection tube for coagulation studies. Please contact the laboratory at [phone] for redraw instructions. PERFORMED BY: [place] [address] PATHOLOGIST CONVEYOR OPERATOR CUONG JULIO M.D. Performed By: #### P TT, PT #### [facility] [address] [place] [address] Prothrombin time (PT)Ordered By: Vangie Gonzalez on 07-06-2023 PT Coag (PPP) [Time] 11.7 s Normal 9.0-12.9 [facility] Comment on above: A hematocrit value g reater than 55% may lead to inaccurate results in coagulation testing. Patients having hematocrit values >55% require a special collection tube for coagulation studies. Please contact the laboratory at [phone] for redraw instructions. Result Comment: A he matocrit value greater than 55% may lead to inaccurate results in coagulation testing. Patients having hematocrit values >55% require a special collection tube for coagulation studies. Please contact the laboratory at [phone] for redraw instructions. Performed By: #### P TT, PT #### [facility] [address] Troponin I High Sensitivityo n 07-06-2023 Troponin I High Sensitivity 1352.7 pg/mL Off scale high 0.0-15.0 [facility] Comment on above: Result Comment: Crit ical Result : Called to and read back by: TITUS BARTON at: 07/06/2023 23:09:16 by:[id number] PERFORMED BY: [facility] [address] [place] [address] PATHOLOGIST CONVEYOR OPERATOR CUONG JULIO M.D. Performed By: #### H S TROP ####[facility] B[address] COLONOSCOPYon 06-07-2023 Colonoscopy Table formatting fro m the original result was not included. [facility] EGDon 06-07-2023 Esophagogastroduodenosco py Table formatting from the original result was not included. [facility] Comment on above: Order Comment: WITH [...] Time Specimens No specimens collected Procedure Location [facility] [address] [facility] [address] [place] [address] [address] [place] [facility] [place] [id number] Procedure Provider Yesy Bosch MD [facility] Work Phone: Table formatting fro m the original result [...] AM Specimens No specimens collected Procedure Location [facility] [address] [address] [place] [facility] [address] [place] [address] [address] [place] [address] Procedure Provider Juju Teran MD MPH [facility] Work Phone: [facility] Work Phone: Radiology Study observation (narrative) [facility] Work Phone: Radiology Study observation (narrative) [facility] Work Phone: No Panel InformationOrdered By: Yesy Bosch on 06-07-2023 [facility] Work Phone: Falls Screening (Age 18+)on [...] Only; Status:Hold For - Scheduling,Retrospective Authorization; Requested for:[id number]; Perform: Radiology Services Imaging; Due:[id number]; Last Updated By:Marilee Hand; 03/02/2023 12:08:44 PM;Ordered; For:Hernia, abdominal; Ordered By:Andreas Andrade; Patient taking Metformin or Derivatives? : Unknown Radiologist to Determine Optimal Study : Y What are the patient's signs and symptoms? : abdominal pain Hernia, abdominal, Other dysphagia Follow-up PRN Outpatient Follow-up Status: Active Requested for: [id number] Ordered Stat;For: Hernia, abdominal, Other dysphagia; Ordered By: Andreas Andrade Performed: Due: [id number] Patient Discussion/Summary Patient has a multitude of [...] Tablet Lipitor (more content not included)... Normal [facility] Initial Visit (General Surge ry)on 12-12-2022 Initial Visit (General Surgery) No report was sent Normal [facility] PROF CHEM 8 (BAS METB)on Anion gap [Moles/Vol] 11.5 mmol/L Normal [facility] Comment on above: Performed By: #### T YUAN MCNALLY #### [facility] [address] [place] [address] [address] Wes Leonard Calcium [Mass/Vol] 8.9 mg/dL Normal 8.5-10.1 [facility] Comment on above: Performed By: #### T YUAN MCNALLY #### [facility] [address] [place] [address] [address] Wes Leonard Chloride [Moles/Vol] 104 mmol/L Normal 98-107 [facility] Comment on above: Performed By: #### T SH, BMP #### [facility] [address] [place] [address] [address] Wes Leonard CO2 [Moles/Vol] 26.3 mmol/L Normal 21.0-32.0 [facility] Comment on above: Performed By: #### T SH, BMP #### [facility] [address] [place] [address] [address] Wes Leonard Creatinine [Mass/Vol] 0.74 mg/dL Normal 0.55-1.02 [facility] Comment on above: Performed By: #### T SH, BMP #### [facility] [address] [place] [address] Dr. Wes Leonard EGFR-AF PALESTINIAN >60 Normal >=60 [facility] Comment on above: Performed By: #### T SH, BMP #### [facility] [address] [place] [address] Dr. Wes Leonard EGFR-NON AF PALESTINIAN >60 Normal >=60 [facility] Comment on above: Performed By: #### T SH, BMP #### [facility] [address] [place] [address] Dr. Wes Leonard Glucose [Mass/Vol] 166 mg/dL Critically high 74-106 [facility] Comment on above: Performed By: #### T SH, BMP #### [facility] [address] [place] [address] Dr. Wes Leonard Potassium [Moles/Vol] 3.8 mmol/L Normal 3.5-5.1 [facility] Comment on above: Performed By: #### T SH, BMP #### [facility] [address] [place] [address] Dr. Wes Leonard Sodium [Moles/Vol] 138 mmol/L Normal 136-145 [facility] Comment on above: Performed By: #### T SH, BMP #### [facility] [address] [place] [address] Dr. Wes Leonard Urea nitrogen [Mass/Vol] 10.0 mg/dL Normal 7.0-18.0 [facility] Comment on above: Performed By: #### T SH, BMP #### [facility] [address] [place] [address] Dr. Wes Leonard Urea nitrogen/Creatinine [Mass ratio] 13.5 mg/mg Normal [facility] Comment on above: Performed By: #### T SH, BMP #### [facility] [address] [place] [address] Dr. Wes Leonard TSHon 10-21-2022 TSH 1.062 uIU/mL Normal 0.358-3.74 0 [facility] Comment on above: Performed By: #### T SH, BMP #### [facility] [address] [place] [address] Dr. Wes Leonard FREE T3on 05-12-2022 FREE T3 3.08 pg/mlL Normal 2.18-3.98 [facility] Comment on above: Performed By: #### T ULI BMP, FT3 #### [facility] [address] [place] [address] Dr. Wes Leonard PROF CHEM 8 (BAS METB)on Anion gap [Moles/Vol] 11.3 mmol/L Normal [facility] Comment on above: Performed By: #### T ULI BMP, FT3 #### [facility] [address] [place] [address] Dr. Wes Leonard Calcium [Mass/Vol] 9.4 mg/dL Normal 8.5-10.1 [facility] Comment on above: Performed By: #### T ULI, BMP, FT3 #### [facility] [address] [place] [address] Dr. Wes Leonard Chloride [Moles/Vol] 106 mmol/L Normal 98-107 [facility] Comment on above: Performed By: #### T ULI, BMP, FT3 #### [facility] [address] [place] [address] Dr. Wes Leonard CO2 [Moles/Vol] 26.3 mmol/L Normal 21.0-32.0 [facility] Comment on above: Performed By: #### T YUAN MCNALLY, FT3 #### [facility] [address] [address] [address] Wes Leonard Creatinine [Mass/Vol] 0.73 mg/dL Normal 0.55-1.02 [facility] Comment on above: Performed By: #### T YUAN MCNALLY, FT3 #### [facility] [address] [address] [address] Wes Leonard EGFR-AF PALESTINIAN >60 Normal >=60 [facility] Comment on above: Performed By: #### T YUAN MCNALLY, FT3 #### [facility] [address] [place] [address] Dr. Wes Leonard EGFR-NON AF PALESTINIAN >60 Normal >=60 [facility] Comment on above: Performed By: #### T YUAN MCNALLY, FT3 #### [facility] [address] [address] [address] Wes Leonard Glucose [Mass/Vol] 116 mg/dL Critically high 74-106 [facility] Comment on above: Performed By: #### T YUAN MCNALLY, FT3 #### [facility] [address] [place] [address] Dr. Wes Leonard Potassium [Moles/Vol] 4.6 mmol/L Normal 3.5-5.1 [facility] Comment on above: Performed By: #### T YUAN MCNALLY, FT3 #### [facility] [address] [place] [address] Dr. Wes Leonard Sodium [Moles/Vol] 139 mmol/L Normal 136-145 [facility] Comment on above: Performed By: #### T YUAN MCNALLY, FT3 #### [facility] [address] [place] [address] Dr. Wes Leonard Urea nitrogen [Mass/Vol] 10.0 mg/dL Normal 7.0-18.0 [facility] Comment on above: Performed By: #### T YUAN MCNALLY, FT3 #### [facility] [address] [address] [address] Wes Leonard Urea nitrogen/Creatinine [Mass ratio] 13.7 mg/mg Normal [facility] Comment on above: Performed By: #### T YUAN MCNALLY, FT3 #### [facility] [address] [address] [address] Wes Leonard TSHon 05-12-2022 TSH 0.129 uIU/mL Critically low 0.358-3.74 0 [facility] Comment on above: Performed By: #### T YUAN MCNALLY, FT3 #### [facility] [address] [address] [address] Wes Leonard Coding Summaryon 02-03-2022 Coding Summary HTMLBase 64 SolplpaoYVi8zOy+PGhlYWQ+P E2XSISjJ93xxZHvhO9DS1jXKZ 6ZILWOIJCXBL2GLN1dqZB0EJp dY4DqnvDa OdksrDScZC21SRc0BPG9zKlgD OcpxN1peKZhX1a6UqJqAO54hZ 26ZXijWITnAiK5VnNwtywpjQV y L9rmZiOtmTMmYuy+PHRhYmxlI HdpZHRoPScxMDAlJyBzdHlsZT 8hCa8mOIUyVPOgnQbqxZRoMiV j o7rhFDSaMCwoFH7ocQqwZ7Pbc OO1RMBcq1z7Fj75cCK+PHRkIH C8hVrdISaez746DrWts2adJLR 3 zPZlGPxqVWP3I12pa8K9BYChF SWuMFV6fEJ1rW7sdMgbpgffU2 CuzAAtZfE8ICG5eETvaJ2kvTm n cmfhqL1eQkx+L58MBK2TJGAAZ N0GOrv8O5GjAquzrUS+PC90YW OdET39oPWyeVUbc7qmtRp7BrM w QSOkWUY5pBarZXmuj4YmGRWxR 67qrFRnp3B8QGOxoBfkiIRtMk AztOL9sZ8uTBiwievhl0fgfqy n Paloa2ewjh77tX03D62fUAakE WPrFEZ9JEGaCVIdiJzrgg5hfQ 9wIi8+XLamz7zml5xgfEu0GsD w DPZrroOogUtcOFW8w6QaXr66W 5JmbVxln7YdRkd5la97gUEeq5 F3hLA3NVrfSEHqkF4iNEruLqS 6 ELWeAyIjqQ59eCRwSGzyJl7pl EslgLjiRH7oEHQqpmorEIXchK 6kUEUlhFQvmXekXJ1kHFTvizp m w593PnGjWSM1XHTdeGTiQ3Bvx D4bCdYoWDIvZISrK7AccAJbCU qmG128WVuqNdG4XRRsoxBeH1Y s OBNekDnsPvV1h7R0Wh5Zr0Bvv gflDUX8NKnvSML8QbF8CeSnQs E6P3TtOpp7UIVqjTeuTH1gL4M h VULprlivqxjbeOY0FVFuAPOcj N82vUHnROhfXz6bl2M1e864IT XpJLGgtM57Xo8apPasDJXyrZB U tQ6llsdcu3jfyqzoSuHkESCyJ Zm3KDz7PNSakJtpCqTfHEH3Sj X7RBP3ePWjmP8vyYtsmwhksE7 w Oyc+K26bqI8tLJS0ITA5cotvQ EQnseJpDW61HG93E7GhLnadnX FibGU+TBXxnrMvbGsmGU9zMnU j n9xnd9KsWHftY3JsRJBuSQybU rd6PBAgWNP7vUS5bX1hXXHrFJ mir0K2nSD1Y4OlhnJzwu8qp2h s ANDlHBabN19pbYPge3J3KJCqq YS1DRDdnVhzDyPplR83Ovg+PG DcfOhzp2SrFlvut0wsk5brdXp 9 JtOaFCGfbhAclBdeADW2b3AbI p09U50cCQhyEBBdUGTxRTQxLC WlnInksm1gfW7lQd8+PGNvbCB 3 qMI0fY0uOFKgApC7NXxnN301S rMaeFCbBsqvc1ybn1vuvNt4Tm JsVEZwwdPyiTruOOS8n0UlTj5 8 J80jYZptGXKqDUSwURNoISVai Lnttm4pdW0bNd6+HB0dq7tiyf 12sG32dAP+XZRhZCC5gGybCVw w FSNytM6zFGxnArI6PFKwWxFgx I82jSXyTXfnRk0vsLixyJqqYC 4dQSPtvyhsz405FjXaw5bbHZY w sVXgZQvwMZT4T53td8T4TWKsK GHqWZN4xEW0cZ5uaOtjixproK QfkOakpuGibSdjZVsdWIemB68 6 IHRvcDsnPlBhdGllbnQgTmFtZ Je2H5VvNxo6IURddUdwBF0fsD WxHZizXp9foOkffXswTT8bCXT p trend134VnBza5nkWDDdnJEfV OglDYV4P12ap7E1ROIjEKZuTJ A5yVY9tF9dcFsfgbkqkHXoiWm g zlZxuDmrHBpgVBrtO518ASWon UwlHxTfzdAnGWRvqRH8WP67WH 19zXMvb1K2nNR8U9QcUYJihwt t ibshdMO7MFNmDGIafO11Vc1hv VacYx8cTFKoAPE4COGhlRMgC9 BtlN1iUmOrAPWoIYUeE7FntPY t MToaK435UKafKzU4EBMbjfIpJ 2UxGEEvuSbzPtD4y7W5Aw9QU8 X0IG94HV39pALle9M4aAO3R9M h RANoellzvgqgxGM7RZNfKQToh R63Mf1kmYksHo9sCHHiGNX8WG AiuBUlN4QoaE0zEuXtQTReYPR w Z0AhgYXfXDpwW734IPxsZlD7T XNkmwEsG3CtIWBedRybBsO3o1 A2Qo1VYNi1IB22UY88rDQdh3X 5 jOS5Z0BrUJBzhpanxiwkhWX3E YQdKSYziO32Ol1deLbcQv8dJN BsKYQ6HPSwjOCwK8LuiP4nXeG j ALFrMRBuL9ZtgERpPFuwE585P QbqSuC6WXOrpkZwC6HiHYGdjZ pvKyI1q1Z6Qc9KDDWxXT96CXT 5 vTV5JH50BX18N1TjKrumtYGes +PHRhYmxlIHdpZHRoPScxMD RuGrHiwCdiXV5oCe9aJXMvXCO v aInojGKaOyKmq5vuDNGdLMtgJ P2rwQayO8KkvUY2GIFvl1c8Kq 05L25bY0KvhJD+XRRjiMF2cOD 0 xS9pOxZbRlJ7ACosQ445CtRnl SMvOweya7oip0efmOa2FtK4XX XfpkIdcFdjRMU0o9MkDw39W23 s IHdpZHRoPSIxNSUiIHZhbGlnb k2haT8qPh5+DSKltAC9oNI7tC 7tDwAyBmR6VDhzG671UjRrbVY v Tdhab5zen7ultDw5XaQpWIOsh eNvkWbzLCD7v8AcFi66H6WsmM fme6EpStb4pk98gEXmu2A6vZJ 9 Y5UqBUQzdybreJMcjIpdLH1cD EBleyycJABrdQ1gKCXzO0b5Fp VwQxI7ONiiD5RwifW3ABWeyPO g BOmgEOT7O94rr8I6OUWeWAMkA YZ1rJP1eS1kwLnjvzaxlMHhbW wfaaSstQfvUIvfJOogU012FGH v rZjpGZZtiL6dFVPobWHycBneQ S2sWIKkdkutVruFW1BGA5YdWA DYGCRIQV5MDG56SN97qQTio3D 5 aED1L6WbQQHkgenlzyskpKO4K JDgJURwlL90oSBoRUnvXd1gg9 P7f826QUFfWEGxuE01Hu5jlVj g LACtxMBEdS1vgxfds1dgwlbiK xFpWHZfIOl1OLo2ORPazIxlGr KyNHP2TjN6AYE4pMEztD4brUc n ufmdrI0iOji+FIllMOGeXUb7Z zwvdGQ+OFIzBZX8sXgeFRlkJS ExhC4zUVIxE0y6TxEhTyP0RLa u V7WjZOEqauuaRe37mA1vAhEeV bR7KQpnR9GwxkY9PTLctQBxEZ wjMSE2M91so0U4DQLoBFCgYLN 7 pZL8lQ6xfDnbffqlrDMtkFzry sPmnSxaALomJBipW514SFMnxK psUbP1VZbmTEEpRT78IE52oWA g z9G3zNQ8S8HxXSYaovzqbfixt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
--- NOTE | 2024-05-07 13:32 | ED.ABDPAIN1 ---
HPI - Abdominal Pain General Chief Complaint: Abdominal Pain Stated Complaint: ABDOMINAL PAIN Time Seen by Provider: 05/07/24 13:07 Source: patient Mode of arrival: walk-in Limitations: no limitations History of Present Illness HPI narrative: 49-year-old female presents to the emergency department with complaint of abdominal pain. Locating pain to the mid abdominal region with some associated distention. States she has not had a sizable bowel movement in 2 weeks. Patient has colostomy since April 2020. Reports she has not had a bowel obstruction in the past. Has had associated nausea. Denies fevers, vomiting. Quality:?Pressure, intermittent cramping Severity:?Moderate Timing:?As above, worsening Context: Normal setting and activity? Modifying factors:?Pain worse with palpation Associated symptoms: as above Related Data Allergies Allergy/AdvReac Type Severity Reaction Status Date / Time adhesive tape AdvReac Unknown Rash Verified 05/07/24 13:00 Review of Systems ROS Constitutional Denies: fever or chills Cardiovascular Denies: chest pain Respiratory Denies: shortness of breath Gastrointestinal Reports: abdominal pain, nausea and bloating; Denies: vomiting or diarrhea Genitourinary Denies: painful urination or urinary frequency Musculoskeletal Denies: back pain PFSH PFSH Social History Smoking status: Former smoker Little interest or pleasure in doing things: not at all Feeling down, depressed, or hopeless: not at all Exam Constitutional Vital Signs, click to edit/add: Last Vital Signs Temp 98.1 F 05/07/24 13:00 Pulse 80 05/07/24 13:00 Resp 18 05/07/24 14:56 BP 116/81 05/07/24 15:51 Pulse Ox 96 05/07/24 14:56 O2 Del Method Room Air 05/07/24 13:00 Documenting provider has reviewed patient's vital signs: yes Common normals: no apparent distress, oriented x3 and alert General appearance: well developed HENMT Common normals: normocephalic and head/scalp atraumatic Head and scalp: normocephalic and atraumatic Eye Common normals: conjunctivae normal Conjunctiva: conjunctiva(e) normal Respiratory Common normals: normal respiratory effort and clear to auscultation bilaterally Effort & inspection: able to speak in complete sentences Auscultation: clear to auscultation bilaterally Cardio Common normals: regular rate, regular rhythm and no murmurs Rate: regular rate Rhythm: regular rhythm GI Common normals: soft to palpation Inspection: normal to inspection and abdominal distension (mild) Palpation: soft and tender (colostomy left mid) Details: periumbilical; no guarding Common normals: no CVA tenderness Bladder/kidney exam: no CVA tenderness Back & Pelvis Common normals: no CVA tenderness Neuro Common normals: oriented x3, moves all extremities and no focal motor deficits Sensorium/orientation: alert Psych Common normals: mental status grossly normal, thought process normal and cooperative Thought process: normal thought process Course Consultations Consultation #1: Patient discussed with Dr. Shah. With obstruction plus motility problem, concern raised about potential complications. Time: 15:30 Consultation #2: Patient discussed with Surgery and Dr. Cole at [facility] who are agreeable with being on consult Time: 16:14 Consultation #3: Patient discussed with Dr. Guillen who will accept the patient at [facility] Time: 18:42 Vital Signs Vital signs: Vital Signs Temperature 98.1 F 05/07/24 13:00 Pulse Rate 80 05/07/24 13:00 Respiratory Rate 16 05/07/24 13:00 Blood Pressure 103/68 05/07/24 13:00 Pulse Oximetry 97 05/07/24 13:00 Oxygen Delivery Method Room Air 05/07/24 13:00 Temperature 98.1 F 05/07/24 13:00 Pulse Rate 80 05/07/24 13:00 Respiratory Rate 18 05/07/24 14:56 Blood Pressure 116/81 05/07/24 15:51 Pulse Oximetry 96 05/07/24 14:56 Oxygen Delivery Method Room Air 05/07/24 13:00 MDM - Abdominal Pain MDM Narrative Medical decision making narrative: This is a pleasant 49-year-old female who presents to the emergency department with complaint of abdominal pain and distention. Patient has a colostomy and reports no stool output for about 2 weeks. She is worried about obstruction. Has noted some small amounts of liquid. Has had some nausea. Denies any fever. Patient states history of pelvic floor problems they caused ischemia to her colon along with atrophy from chronic constipation which led to the colostomy in 2019. On arrival, febrile vital signs are stable. On exam, nontoxic, well-appearing patient in no distress. Heart regular rate and rhythm. Lung sounds clear and equal bilaterally. Abdomen is soft with some tenderness and distention around the ostomy site. Labs reveal no leukocytosis, anemia, thrombocytopenia, electrolyte imbalance, renal impairment. She has mild elevation of her alk phos at 142. Urinalysis unremarkable Abdomen pelvis imaging, per radiologist reveals dense fecal ball at the distal aspect of the left lower quadrant stoma, resulting in obstruction of the proximal colon, which is largely distended with fecal material. History and record review Discussion with independent historian: Spouse Favor large bowel obstruction Perforation less likely based on imaging Management Discussion with another healthcare provider: Admitting team, instructional design consultant Additional testing interventions IV fluids: Hydration Disposition ? The patient was transferred to [facility]. Dr. Guillen accepting Condition at time of disposition: stable PLEASE NOTE: Portions of the medical record may have been produced using electronic taxi proprietor and may contain errors with respect to translation of words which may not have been identified prior to finalization of the chart. Medical Records Attestation: I reviewed the patient's medical records. Lab Data Attestation: I reviewed the patient's lab results. Labs: Lab Results 05/07/24 05/07/24 Range/Units 13:25 14:51 WBC 9.7 (4.0-11.0) 10^3/uL RBC 4.39 (4.20-5.40) 10^6/uL Hgb 11.8 L (12.0-16.0) g/dL Hct 36.9 (36.0-48.0) % MCV 84.1 (81.0-99.0) fL MCH 26.9 (26.7-34.0) pg MCHC 32.0 (29.9-35.2) g/dL RDW 15.4 H (11.0-15.0) % Plt Count 411 (150-450) 10^3/uL MPV 10.9 (9.5-13.5) fL Neut % (Auto) 62.7 (43.0-75.0) % Lymph % (Auto) 27.7 (20.5-60.0) % [place] % (Auto) 7.6 (1.7-12.0) % Eos % (Auto) 1.2 (0.9-7.0) % Baso % (Auto) 0.5 (0.2-2.0) % Neut # (Auto) 6.1 (1.4-6.5) 10^3/uL Lymph # (Auto) 2.7 (1.2-3.8) 10^3/uL [place] # (Auto) 0.7 (0.3-0.8) 10^3/uL Eos # (Auto) 0.1 (0.0-0.7) 10^3/uL Baso # (Auto) 0.1 (0.0-0.1) 10^3/uL Abs Immat Gran (auto) 0.03 (0.00-0.03) 10^3/uL Imm/Tot Granulo (auto) 0.3 (0.0-0.5) % Sodium 133 L (136-145) mmol/L Potassium 4.3 (3.5-5.1) mmol/L Chloride 99 (98-107) mmol/L Carbon Dioxide 26.6 (21.0-32.0) mmol/L Anion Gap 11.7 BUN 14.0 (7.0-18.0) mg/dL Creatinine 0.73 (0.55-1.02) mg/dL Est GFR ( Amer) >60 (>=60 mL/min/1.73m^2) Est GFR (Non-Af Amer) >60 (>=60 mL/min/1.73m^2) BUN/Creatinine Ratio 19.2 Glucose 105 (74-106) mg/dL Calcium 9.6 (8.5-10.1) mg/dL Magnesium 2.0 (1.8-2.4) mg/dL Total Bilirubin 0.4 (0.2-1.0) mg/dL AST 18 (15-37) U/L ALT 34 (14-59) U/L Alkaline Phosphatase 142 H (46-116) U/L Total Protein 6.6 (6.4-8.2) g/dL Albumin 3.1 L (3.4-5.0) g/dL Globulin 3.5 g/dL Albumin/Globulin Ratio 0.9 Lipase 23.0 (16.0-77.0) U/L Urine Color Yellow (YELLOW) Urine Clarity Slightly cloudy A (CLEAR) Urine pH 8.0 (5.0-9.0) Ur Specific [place] 1.010 (1.005-1.025) Urine Protein Negative (NEG/TRACE) mg/dL Urine Glucose (UA) Negative (NEGATIVE) mg/dL Urine Ketones Negative (NEGATIVE) mg/dL Urine Occult Blood Negative (NEGATIVE) Urine Nitrite Negative (NEGATIVE) Urine Bilirubin Negative (NEGATIVE) Urine Urobilinogen 0.2 (0.2-1.0) EU/dL Ur Leukocyte Esterase Negative (NEGATIVE) Urine RBC 0-2 (0-2) #/HPF Urine WBC 0-2 A (NONE SEEN) #/HPF Ur Squamous Epith Cells Many A (NONE/RARE) #/LPF Urine Crystals None seen (None Seen) #/HPF Urine Bacteria Small A (NONE SEEN) #/HPF Urine Casts None seen (NONE SEEN) #/LPF Urine Mucus None seen (NONE SEEN) Ur Culture Indicated? Yes Imaging Data CT scan - abdomen: Radiologist's impression: ITS Impressions Abdomen/Pelvis CT 05/07/24 14:23 IMPRESSION: 1. Dense fecal ball at the distal aspect of the left lower quadrant stoma, resulting in obstruction of the proximal colon, which is largely distended with fecal material. 2. The stomal portion of the colon is mildly thickened with adjacent fat stranding, likely reactive, though superimposed infection cannot be excluded. 3. Moderate-sized hiatal hernia and other findings as above. Electronically authenticated by: MADELYN GRADY Date: 05/07/2024 15:00 Discharge Plan Discharge Chief Complaint: Abdominal Pain Clinical Impression: Large bowel obstruction, History of colostomy, Colonic motility disorder Patient Disposition: [facility] Time of Disposition Decision: 18:46 Discharge location: [facility] Condition: Good Mode of Transportation: EMS
[2024-05-07] MEDS: 0.9 % SODIUM CHLORIDE 1,000 ML 999 ML IV (13:34)
[2024-05-07] MEDS: FENTANYL CITRATE/PF 100 MCG/2 ML VIAL 50 MCG IV ×2 (13:35→22:13)
[2024-05-07] MEDS: ONDANSETRON PF 4 MG/2 ML VIAL IV (13:35)
[2024-05-07 13:55] LABS: Basophils Absolute Auto 0.1 10^3/uL (0.0-0.1); Basophils Percent Auto 0.5 % (0.2-2.0); Eosinophils Absolute Auto 0.1 10^3/uL (0.0-0.7); Eosinophils Percent Auto 1.2 % (0.9-7.0); Hematocrit 36.9 % (36.0-48.0); Hemoglobin 11.8 g/dL (12.0-16.0); Immature Granulocytes Abs Auto 0.03 10^3/uL (0.00-0.03); Immature Granulocytes Pct Auto 0.3 % (0.0-0.5); Lymphocytes Absolute Auto 2.7 10^3/uL (1.2-3.8); Lymphocytes Percent Auto 27.7 % (20.5-60.0); Mean Corpuscular Hemoglobin 26.9 pg (26.7-34.0); Mean Corpuscular Volume 84.1 fL (81.0-99.0); Mean Platelet Volume 10.9 fL (9.5-13.5); Monocytes Absolute Auto 0.7 10^3/uL (0.3-0.8); Monocytes Percent Auto 7.6 % (1.7-12.0); Neutrophils Absolute Auto 6.1 10^3/uL (1.4-6.5); Neutrophils Percent Auto 62.7 % (43.0-75.0); Platelet Count 411 10^3/uL (150-450); Red Blood Count 4.39 10^6/uL (4.20-5.40); Red Cell Distribution Width 15.4 % (11.0-15.0); White Blood Count 9.7 10^3/uL (4.0-11.0)
[2024-05-07 14:16] LABS: Alanine Aminotransferase 34 U/L (14-59); Albumin Globulin Ratio 0.9; Albumin Level 3.1 g/dL (3.4-5.0); Alkaline Phosphatase 142 U/L (46-116); Anion Gap 11.7; Aspartate Amino Transferase 18 U/L (15-37); BUN Creatinine Ratio 19.2; Bilirubin Total 0.4 mg/dL (0.2-1.0); Calcium 9.6 mg/dL (8.5-10.1); Carbon Dioxide 26.6 mmol/L (21.0-32.0); Chloride 99 mmol/L (98-107); Estimated GFR (African America >60 (>=60 mL/min/1.73m^2); Estimated GFR (Non-African Ame >60 (>=60 mL/min/1.73m^2); Globulin 3.5 g/dL; Glucose 105 mg/dL (74-106); Potassium 4.3 mmol/L (3.5-5.1); Sodium 133 mmol/L (136-145); Total Protein 6.6 g/dL (6.4-8.2)
--- NOTE | 2024-05-07 14:23 | CT_ITS ---
[address] [address] Patient Name: ABBIE SALCIDO MRN: [id number] date: 1975 Sex: F Assigned Patient Location: ER Current Patient Location: ER Accession/Order Number: [id number] Exam Date: 05/07/2024 14:17 Report Date: 05/07/2024 15:00 At the request of: FOUZIA MARTINEZ Procedure: CT abdomen pelvis w con EXAM: CT abdomen pelvis w con HISTORY: Bowel obstruction COMPARISON: CT from 04/21/2023 , 02/01/2023 TECHNIQUE: CT abdomen pelvis w con FINDINGS: LOWER CHEST: LUNG BASES / PLEURA: 5 mm pulmonary nodule in the left lower lobe (image 4 of series 4) not significantly changed from 02/01/2023. DISTAL ESOPHAGUS: Moderate sized hiatal hernia. Thickening of the herniated stomach, similar to prior exams. HEART / VESSELS: No significant abnormality. ABDOMEN and PELVIS: LIVER: Normal. BILIARY TRACT: Normal. GALLBLADDER: Absent. PANCREAS: Normal. SPLEEN: Normal. ADRENALS: Normal. KIDNEYS: Normal. No stone or hydroureteronephrosis. LYMPH NODES: None enlarged. STOMACH / SMALL BOWEL: No abnormality. COLON / APPENDIX: Pronounced fecal burden of the proximal colon with resultant distention. This extends through the stomal defect. Within the stoma portion of the distal colon, there is a denser fecal ball which appears to obstruct the stoma (image 84 of series 4). Mild circumferential wall thickening and adjacent fat stranding of the stomal portion of the colon. 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 The appendix is normal. PERITONEUM / MESENTERY: Normal. RETROPERITONEUM: Normal. VESSELS: No significant abnormality. URINARY BLADDER: Normal. REPRODUCTIVE ORGANS: No abnormality. BODY WALL: Small fat-containing left inguinal hernia. Left lower quadrant stoma as described above. MUSCULOSKELETAL: No acute abnormality. Partial lumbarization of S1. Grade 1 anterolisthesis of L5 on S1. CT/CT abdomen pelvis w con IMPRESSION: 1. Dense fecal ball at the distal aspect of the left lower quadrant stoma, resulting in obstruction of the proximal colon, which is largely distended with fecal material. 2. The stomal portion of the colon is mildly thickened with adjacent fat stranding, likely reactive, though superimposed infection cannot be excluded. 3. Moderate-sized hiatal hernia and other findings as above. Electronically authenticated by: MADELYN GRADY Date: 05/07/2024 15:00
[2024-05-07 14:56] VITALS: BP 100/69; O2SAT 96
[2024-05-07 15:00] LABS: Bilirubin Urine NEGATIVE (NEGATIVE); Blood Urine NEGATIVE (NEGATIVE); Clarity Urine SLIGHTLY CLOUDY (CLEAR); Color Urine YELLOW (YELLOW); Glucose Urine UA NEGATIVE (NEGATIVE); Ketones Urine NEGATIVE (NEGATIVE); Leukocyte Esterase Urine NEGATIVE (NEGATIVE); Nitrite Urine NEGATIVE (NEGATIVE); Protein Urine NEGATIVE (NEG/TRACE); Urobilinogen Urine 0.2 EU/dL (0.2-1.0)
[2024-05-07 15:14] LABS: Bacteria Urine SMALL #/HPF (NONE SEEN); Mucus Urine NONE SEEN (NONE SEEN); RBC Urine 0-2 #/HPF (0-2); Squamous Epithelial Cell Urine MANY #/LPF (NONE/RARE); WBC Urine 0-2 #/HPF (NONE SEEN)
[2024-05-07 15:15] LABS: Cast Seen? NONE SEEN #/LPF (NONE SEEN); Crystals Seen? None Seen #/HPF (None Seen); Urine Culture Indicated YES
[2024-05-07 15:51] VITALS: BP 116/81
[2024-05-07 21:33] VITALS: BP 111/82; PULSE 75; O2SAT 93
== END 2024-05-07 22:23 | disposition short-term general hospital (02) ==
PROVIDERS: Physician Assistant; Emergency Provider Student in an Organized Health Care Education/Training Program; PCP Internal Medicine
DX: K56.609 Unspecified intestinal obstruction, unspecified as to partial versus complete obstruction (principal); K63.89 Other specified diseases of intestine; Z93.3 Colostomy status; Z87.891 Personal history of nicotine dependence
CPT/HCPCS: 36415; 74177; 80053; 81001; 83690; 83735; 85025; 87086; 96374; 96375; 96376; 99285; J2405; J3010; Q9967